=== PATIENT | male | born 1955 | race Caucasian/White ===

== ENCOUNTER 2017-06-09 14:36 | Emergency (ER) | payer BC ==
[~2017-06-09] VITALS: Ht 175.3 cm; Wt 106.6 kg
[~2017-06-09 14:36] MED LIST: ASPI-808 PO; ASPI-999 PO; CARV25TA PO; CLON0.1T PO; CLOP75TA28 PO; LISI1TAB10 PO; POTA10TA10 PO
[2017-06-09] MEDS ORDERED: ONDANSETRON 4 MG/2 ML (SDV) Z0FRAN ONE (15:07)
[2017-06-09] MEDS ORDERED: SITA100T12 PO (15:09)
[2017-06-09] MEDS ORDERED: METF500T4 PO (15:09)
[2017-06-09] MEDS ORDERED: VERA120T84 PO (15:09)
[2017-06-09 15:32] LABS: BASOPHILS % (AUTO) 0 % (0-10); EOSINOPHILS % (AUTO) 0 % (0-10); LYMPHOCYTES # (AUTO) 1.3 X 10^3 (1.0-4.0); LYMPHOCYTES % (AUTO) 13 % (12-44); MEAN CORPUSCULAR HEMOGLOBIN 30 PG (25-34); MEAN CORPUSCULAR HGB CONC 34 G/DL (32-36); MEAN CORPUSCULAR VOLUME 88 FL (80-99); MEAN PLATELET VOLUME 10.4 FL (7.4-10.4); MONOCYTES # (AUTO) 0.5 X 10^3 (0.0-1.0); MONOCYTES % (AUTO) 5 % (0-12); NEUTROPHILS % (AUTO) 81 % (42-75); PLATELET COUNT 192 10^3/uL (130-400); RED BLOOD COUNT 5.62 10^6/uL (4.35-5.85); RED CELL DISTRIBUTION WIDTH 13.5 % (10.0-14.5); WHITE BLOOD COUNT 9.9 10^3/uL (4.3-11.0)
--- NOTE | 2017-06-09 15:36 | ED GI ---
General Chief Complaint: Abdominal/GI Problems Stated Complaint: VOMITING Nursing Triage Note: PT CO OF N/V FOR 2 DAYS NUMEROUS TIMES. UNABLE TO KEEP MEDS DOWN B/P AND DIABETES Sepsis Screen: No Definite Risk Source of Information: Patient Exam Limitations: No Limitations History of Present Illness Time Seen By Provider: 15:32 Initial Comments The patient is a 61-year-old white male who presents with a 2 day history of repeated nausea and vomiting. He estimates he has vomited 20 times. He denies abdominal pain. He has had no diarrhea. There has been no fever chills or diaphoresis. He would guess his blood sugar will be up as he has not been able to take his medication. He is also hypertensive. Timing/Duration: 1-2 Days Severity/Quality: Moderate Radiation: No Radiation Activities at Onset: None Allergies and Home Medications Allergies Coded Allergies: No Known Drug Allergies (Unverified , 05/28/15) Home Medications Aspirin 81 Mg Tab.chew, 81 MG PO DAILY, #30 Ref 5 Prescribed by: ALIZA REESE on 05/29/15 1106 Carvedilol 25 Mg Tablet, 25 MG PO BID, (Reported) Clonidine HCl 0.1 Mg Tablet, 0.1 MG PO BID, (Reported) Lisinopril/Hydrochlorothiazide 1 Each Tablet, 1 EACH PO BID, (Reported) Metformin HCl 500 Mg Tablet, 500 MG PO BID, (Reported) Potassium Chloride 10 Meq Tablet.er, 10 MEQ PO DAILY, #30 Ref 5 Prescribed by: ALIZA REESE on 05/29/15 1106 Sitagliptin Phosphate 100 Mg Tablet, 100 MG PO, (Reported) Verapamil HCl 120 Mg Tablet.er, 120 MG PO DAILY, (Reported) Review of Systems Constitutional: see HPI EENTM: No Symptoms Reported, Other (speech impediment) Respiratory: No Symptoms Reported Cardiovascular: No Symptoms Reported Gastrointestinal: Nausea, Vomiting Genitourinary: No Symptoms Reported Musculoskeletal: no symptoms reported Skin: no symptoms reported Psychiatric/Neurological: No Symptoms Reported Endocrine: No Symptoms Reported Past Jugvxjh-Vyfads-Qebdei Hx Patient Social History Recent Foreign Travel: No Contact w/Someone Who Travel: No Recent Infectious Disease Expo: No Respiratory Respiratory Disorders: COPD Cardiovascular Cardiac Disorders: Hypertension Reproductive System Hx Reproductive Disorders: No Gastrointestinal Gastrointestinal Disorders: Gastroesophageal Reflux, Hepatitis Endocrine Endocrine Disorders: Diabetes, Non-Insulin dep Blood Transfusions Adverse Reaction to a Blood Tr: No Family Medical History Family Medial History: Cardiovascular disease 19 FATHER Cerebral embolism G8 BROTHER Lung cancer 19 FATHER Myocardial infarction G8 BROTHER, Onset:50's - 60 G8 BROTHER, Onset:50's - 60 Physical Exam Vital Signs VS - Last 72 Hours, by Label 06/09/17 14:55 Temp 99.7 Pulse 84 Resp 18 B/P (MAP) 172/102 Pulse Ox 95 Capillary Refill : Less Than 3 Seconds General Appearance: mild distress HEENT: normal ENT inspection Neck: full range of motion Respiratory: chest non-tender, lungs clear, normal breath sounds, no respiratory distress, no accessory muscle use Cardiovascular: normal peripheral pulses, regular rate, rhythm, no edema, no gallop, no JVD, no murmur Gastrointestinal: non tender, soft, abnormal bowel sounds (decreased) Extremities: normal range of motion, non-tender, normal inspection, no pedal edema, no calf tenderness, normal capillary refill, pelvis stable Back: no CVA tenderness Neurologic/Psychiatric: front desk clerk II-XII nml as tested, no motor/sensory deficits, alert, normal mood/affect, oriented x 3 Skin: normal color Lymphatic: no adenopathy Progress/Results/Core Measures Results/Orders Lab Results Laboratory Tests Test 06/09/17 15:05 Range/Units White Blood Count 9.9 4.3-11.0 10^3/uL Red Blood Count 5.62 4.35-5.85 10^6/uL Hemoglobin 16.8 13.3-17.7 G/DL Hematocrit 49 40-54 % Mean Corpuscular Volume 88 80-99 FL Mean Corpuscular Hemoglobin 30 25-34 PG Mean Corpuscular Hemoglobin Concent 34 32-36 G/DL Red Cell Distribution Width 13.5 10.0-14.5 % Platelet Count 192 130-400 10^3/uL Mean Platelet Volume 10.4 7.4-10.4 FL Neutrophils (%) (Auto) 81 H 42-75 % Lymphocytes (%) (Auto) 13 12-44 % Monocytes (%) (Auto) 5 0-12 % Eosinophils (%) (Auto) 0 0-10 % Basophils (%) (Auto) 0 0-10 % Neutrophils # (Auto) 8.0 H 1.8-7.8 X 10^3 Lymphocytes # (Auto) 1.3 1.0-4.0 X 10^3 Monocytes # (Auto) 0.5 0.0-1.0 X 10^3 Eosinophils # (Auto) 0.0 0.0-0.3 10^3/uL Basophils # (Auto) 0.0 0.0-0.1 10^3/uL Sodium Level 139 135-145 MMOL/L Potassium Level 3.5 L 3.6-5.0 MMOL/L Chloride Level 100 98-107 MMOL/L Carbon Dioxide Level 26 21-32 MMOL/L Anion Gap 13 5-14 MMOL/L Blood Urea Nitrogen 14 7-18 MG/DL Creatinine 0.95 0.60-1.30 MG/DL Estimat Glomerular Filtration Rate > 60 BUN/Creatinine Ratio 15 Glucose Level 141 H 70-105 MG/DL Calcium Level 11.3 H 8.5-10.1 MG/DL Total Bilirubin 0.6 0.1-1.0 MG/DL Aspartate Amino Transf (AST/SGOT) 51 H 5-34 U/L Alanine Aminotransferase (ALT/SGPT) 99 H 0-55 U/L Alkaline Phosphatase 66 40-136 U/L Total Protein 7.9 6.4-8.2 GM/DL Albumin 4.5 3.2-4.5 GM/DL My Orders Orders - LORENA MITTAL MD Ondansetron Injection (Zofran Injectio (06/09/17 15:07) Cbc With Automated Diff (06/09/17 15:22) Comprehensive Metabolic Panel (06/09/17 15:22) Ua Culture If Indicated (06/09/17 15:22) Ns Iv 1000 Ml (Sodium Chloride 0.9%) (06/09/17 15:45) Promethazine Injection (Phenergan Injec (06/09/17 16:45) Promethazine Injection (Phenergan Injec (06/09/17 16:26) Medications Given in ED Current Medications Medications Dose Ordered Sig/Kobi Route Start Time Stop Time Status Last Admin Dose Admin Ondansetron HCl 4 mg STK-MED ONCE .ROUTE 06/09/17 15:07 06/09/17 15:14 DC 06/09/17 15:22 4 MG Promethazine HCl 25 mg ONCE ONCE IVP 06/09/17 16:45 06/09/17 16:46 DC 06/09/17 16:35 25 MG Vital Signs/I&O Vital Sign - Last 12Hours 06/09/17 14:55 Temp 99.7 Pulse 84 Resp 18 B/P (MAP) 172/102 Pulse Ox 95 Blood Pressure Mean: 125 Departure Impression Impression: Primary Impression: nausea and vomiting Disposition: 01 HOME, SELF-CARE Condition: Improved Departure-Patient Inst. Referrals: [facility] (PCP/Family) Primary Care Physician Patient Instructions: No Instuctions Given Add. Discharge Instructions: All discharge instructions reviewed with patient and/or family. Voiced understanding. Clear liquid diet for 24 hours. This allows for Gatorade or other sports drink and 7-Up or Sprite. When using 7-Up or Sprite leave the bottle open and the carbon dioxide will escape. Use Zofran as needed be to control vomiting. Hold lisinopril with HCTZ until vomiting controlled Scripts Ondansetron (Zofran Odt) 8 Mg Tab.rapdis 8 MG PO every 4 hours, #20 TAB Prov: LORENA MITTAL MD 06/09/17 LORENA MITTAL MD Jun 09, 2017 15:36
[2017-06-09] MEDS ORDERED: NS IV 1000 ML 1,000 ML IV SCH (15:45)
[2017-06-09 15:50] LABS: ALANINE AMINOTRANSFERASE 99 U/L (0-55); ALBUMIN 4.5 GM/DL (3.2-4.5); ANION GAP 13 MMOL/L (5-14); ASPARTATE AMINO TRANSFERASE 51 U/L (5-34); BILIRUBIN,TOTAL 0.6 MG/DL (0.1-1.0); BLOOD UREA NITROGEN 14 MG/DL (7-18); BUN/CREATININE RATIO 15; CALCIUM 11.3 MG/DL (8.5-10.1); CARBON DIOXIDE 26 MMOL/L (21-32); CHLORIDE 100 MMOL/L (98-107); CREATININE SERUM 0.95 MG/DL (0.60-1.30); GFR ESTIMATED > 60; GLUCOSE 141 MG/DL (70-105); POTASSIUM 3.5 MMOL/L (3.6-5.0); SODIUM 139 MMOL/L (135-145); TOTAL PROTEIN 7.9 GM/DL (6.4-8.2)
[2017-06-09] MEDS ORDERED: PROMETHAZINE INJ 25 MG/ML (PHENERGAN) AMP ONE (16:26)
[2017-06-09] MEDS ORDERED: PROMETHAZINE INJ 25 MG/ML (PHENERGAN) AMP IVP ONE (16:45)
[2017-06-09] MEDS ORDERED: ONDA8TAB9 PO (17:16)
[2017-06-09 17:30] VITALS: BP 164/88
--- OUTSIDE RECORDS SUMMARY | 2017-06-10 11:43 | XMS REPORT ---
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
--- OUTSIDE RECORDS SUMMARY | 2017-06-10 11:43 | XMS REPORT ---
Author Author BILL COYLE [facility] Address [address] [place] [address] Care Team Providers Care Director Child Name Role Phone BILL COYLE Unavailable PROBLEMS Type Condition ICD9-CM Code [id number] Code Onset Dates Condition Status SNOMED Code Problem Other secondary hypertension I15.8 Active 70424330 Problem Atherosclerotic heart disease of [place] coronary artery without angina pectoris I25.10 Active 678439346 Problem Coronary atherosclerosis due to lipid rich plaque I25.83 Active 704400170341277 Problem Elevated liver enzymes R74.8 Active 495355602 ALLERGIES No Known Allergies SOCIAL HISTORY No smoking Hx information available PLAN OF CARE VITAL SIGNS MEDICATIONS No Known Medications RESULTS No Results PROCEDURES No Known procedures IMMUNIZATIONS No Known Immunizations
--- OUTSIDE RECORDS SUMMARY | 2017-06-10 11:43 | XMS REPORT ---
Author Author BILL COYLE Organization [facility] [place] Address [address] [place] [address] Care Team Providers Care Director Of Retail Merchandising Name Role Phone ESEQUIEL COYLENETTE Unavailable PROBLEMS Type Condition ICD9-CM Code [id number] Code Onset Dates Condition Status SNOMED Code Problem Other secondary hypertension I15.8 Active 12487884 Problem Atherosclerotic heart disease of [place] coronary artery without angina pectoris I25.10 Active 571526636 Problem Coronary atherosclerosis due to lipid rich plaque I25.83 Active 346735842064249 Problem Elevated liver enzymes R74.8 Active 491878918 ALLERGIES No Known Allergies SOCIAL HISTORY No smoking Hx information available PLAN OF CARE VITAL SIGNS MEDICATIONS No Known Medications RESULTS Name Result Date Reference Range CBC 2016-09-28 WBC 9.5 3.4-10.8 RBC 5.56 4.14-5.80 Hemoglobin 17.1 12.6-17.7 Hematocrit 50.1 37.5-51.0 MCV 90 79-97 MCH 30.8 26.6-33.0 MCHC 34.1 31.5-35.7 RDW 13.9 12.3-15.4 Platelets 187 150-379 Neutrophils 60 Lymphs 25 Monocytes 8 Eos 5 Basos 1 Neutrophils (Absolute) 5.7 1.4-7.0 Lymphs (Absolute) 2.4 0.7-3.1 Monocytes(Absolute) 0.8 0.1-0.9 Eos (Absolute) 0.5 0.0-0.4 Baso (Absolute) 0.1 0.0-0.2 Immature Granulocytes 1 Immature Grans (Abs) 0.1 0.0-0.1 LIPID PANEL 2016-09-28 Cholesterol, Total 106 100-199 Triglycerides 85 0-149 HDL Cholesterol 41 >39 VLDL Cholesterol Gennaro 17 5-40 LDL Cholesterol Calc 48 0-99 CMP 2016-09-28 Glucose, Serum 117 65-99 BUN 14 6-24 Creatinine, Serum 0.94 0.76-1.27 eGFR If NonAfricn Am 88 >59 eGFR If Africn Am 102 >59 BUN/Creatinine Ratio 15 9-20 Sodium, Serum 139 134-144 Potassium, Serum 4.0 3.5-5.2 Chloride, Serum 96 96-106 Carbon Dioxide, Total 26 18-29 Calcium, Serum 11.5 8.7-10.2 Protein, Total, Serum 7.7 6.0-8.5 Albumin, Serum 4.4 3.5-5.5 Globulin, Total 3.3 1.5-4.5 A/G Ratio 1.3 1.1-2.5 Bilirubin, Total 0.5 0.0-1.2 Alkaline Phosphatase, S 92 39-117 AST (SGOT) 92 0-40 ALT (SGPT) 121 0-44 HEPATITIS PROFILE 2016-09-28 Hep A Ab, IgM Positive Negative HBsAg Screen Negative Negative Hep B Core Ab, IgM Negative Negative Hep C Virus Ab <0.1 0.0-0.9 PROCEDURES Procedure Date Ordered Related Diagnosis Body Site COMPLETE CBC W/AUTO DIFF WBC Sep 28, 2016 LIPID PANEL Sep 28, 2016 ACUTE HEPATITIS PANEL Sep 28, 2016 COMPREHEN METABOLIC PANEL Sep 28, 2016 VENIPUNCT, ROUTINE* Sep 28, 2016 IMMUNIZATIONS No Known Immunizations
--- OUTSIDE RECORDS SUMMARY | 2017-06-10 11:43 | XMS REPORT ---
Author Author BILL COYLE Organization [facility] Address [address] [place] [address] Care Team Providers Care Marketing Information Manager Name Role Phone ALLISON COYLEE Unavailable PROBLEMS Type Condition ICD9-CM Code [id number] Code Onset Dates Condition Status SNOMED Code Problem Other secondary hypertension I15.8 Active 90186418 Problem Atherosclerotic heart disease of [place] coronary artery without angina pectoris I25.10 Active 721216257 Assessment Wellness examination Z00.00 Sep, Active 543024160202281 Problem Coronary atherosclerosis due to lipid rich plaque I25.83 Active 159661076991997 Assessment Other secondary hypertension I15.8 Sep, Active 17883734 ALLERGIES Substance Reaction Event Type Date Status Codeine Sulfate nausea Drug Allergy Sep, Active SOCIAL HISTORY No smoking Hx information available PLAN OF CARE VITAL SIGNS Height 5'8" in 2016-09-14 Weight 255 lbs 2016-09-14 Heart Rate 70 bpm 2016-09-14 Respiratory Rate 18 2016-09-14 BMI 38.77 kg/m2 2016-09-14 Blood pressure systolic 220 mmHg 2016-09-14 Blood pressure diastolic 130 mmHg 2016-09-14 MEDICATIONS Medication Instructions Dosage Frequency Start Date End Date Duration Status Low-Dose Aspirin 81 MG Orally Once a day 1 tablet 24h Active Lisinopril-Hydrochlorothiazide 20-25 MG Orally 2 times a day 1 tablet 12h 90 days Active Verapamil HCl 120 MG Orally 2 times a day 1 tablet 12h Sep, 30 day(s) Active Atorvastatin Calcium 20 mg Orally Once a day 1 tablet 24h Sep, 90 days Active Carvedilol 25 MG Orally Twice a day 1 tablet with food 12h 90 days Active Clonidine HCl 0.1 MG Orally 2 times a day 1 tablet 12h 90 days Active Klor-Con 10 10 MEQ Orally 1 1 tablet Active RESULTS Name Result Date Reference Range UA LONG DIP (IN HOUSE) 2016-09-17 Lot # [id number] Exp date Clarity Clear Color Yellow Odor None GLU Negative ROGELIO Negative KET Negative SG 1.025 BLO Trace-Intact pH 7.0 Protein 2+ URO 0.2 NIT Negative CHARY Negative Lot # [id number] Exp date PROCEDURES Procedure Date Ordered Related Diagnosis Body Site Office Visit, Est Pt., Level 4 Sep 14, 2016 URINALYSIS, AUTO, W/O SCOPE Sep 14, 2016 IMMUNIZATIONS No Known Immunizations
--- OUTSIDE RECORDS SUMMARY | 2017-06-10 11:43 | XMS REPORT ---
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 Problem Hyperparathyroidism 252.00 Active Problem Coronary artery disease 414.00 Active Problem Hypertension 401.9 Active Problem Fatty liver 571.8 Active Medications Medication Code System Code Instructions Start Date End Date Status Dosage Klor-Con 10 [facility] [address]-13 10 MEQ Orally 1 1 tablet Lisinopril-Hydrochlorothiazide [facility] [address]-84 20-25 MG Orally 2 times a day 1 tablet Low-Dose Aspirin [facility] [address]-88 81 MG Orally Once a day 1 tablet Clonidine HCl [facility] [address]-75 0.1 MG Orally 2 1 tablet Carvedilol [facility] [address]-44 12.5 MG Orally Twice a day 1 tablet with food Results No Known Results Summary Purpose eClinicalWorks Submission
--- OUTSIDE RECORDS SUMMARY | 2017-06-10 11:43 | XMS REPORT | Continuity of Care Document ---
Author Author [facility] Organization [facility] Address Unknown Phone Unavailable Allergies Active Description Code Type Severity Reaction Onset Reported/Identified Relationship to Patient Clinical Status Yes No Known Drug Allergies [id number] Drug Allergy Unknown N/ A 05/28/2015 Medications Problems Date Dx Coded Attending Type Code Diagnosis Diagnosed By 05/29/2015 ALIZA REESE MD, FACC FACP CCDS Ot 275.42 HYPERCALCEMIA 05/29/2015 MARY ANN CRAWFORD FACC, ALIZA FACP CCDS Ot 276.8 HYPOPOTASSEMIA 05/29/2015 ALIZA REESE MD, FACC FACP CCDS Ot 278.00 OBESITY, NOS 05/29/2015 ALIZA REESE MD, FACC FACP CCDS Ot 401.9 HYPERTENSION NOS 05/29/2015 MARY ANN CRAWFORD FACC, ALIZA FACP CCDS Ot 414.01 CORONARY ATHEROSCLEROSIS OF [place] CORON 05/29/2015 MARY ANN CRAWFORD FACC, ALIZA FACP CCDS Ot 414.4 CORONARY ATHEROSCLEROSIS DUE TO [place] 05/29/2015 MARY ANN CRAWFORD FACC, ALIZA FACP CCDS Ot 447.9 ARTERIAL DISEASE NOS 05/29/2015 MARY ANN CRAWFORD FACC, ALIZA FACP CCDS Ot 550.90 UNILAT INGUINAL HERNIA 05/29/2015 ALIZA REESE MD, FACC FACP CCDS Ot 784.59 OTHER SPEECH DISTURBANCE 05/29/2015 ALIZA REESE MD, FACC FACP CCDS Ot 786.50 CHEST PAIN NOS 05/29/2015 MARY ANN CRAWFORD FACC, ALI FACP CCDS Ot 790.29 OTHER ABNORMAL GLUCOSE 05/29/2015 ALIZA REESE MD, FACC FACP CCDS Ot V15.82 HISTORY OF TOBACCO USE 05/29/2015 MARY ANN CRAWFORD FACC ALI FACP CCDS Ot V58.69 OT MED,LT,CURRENT USE 05/29/2015 MARY ANN CRAWFORD FACC ALI FACP CCDS Ot V85.31 BODY MASS INDEX 31.0-31.9, ADULT 07/07/2015 JACQUELINE BAR MD Ot 571.8 07/07/2015 JACQUELINE BAR MD Ot 790.4 11/23/2015 JACQUELINE BAR MD Ot 571.8 11/23/2015 JACQUELINE BAR MD Ot 790.4 01/31/2017 JACQUELINE BAR MD Ot 571.8 CHRONIC LIVER DIS NEC 01/31/2017 JACQUELINE BAR MD Ot 790.4 ELEV TRANSAMINASE/LDH Procedures Results Encounters ACCT No. Visit Date/Time Discharge Status Pt. Type Provider Facility Loc./Unit Complaint [id number] 06/17/2015 07:53:00 2014 23:59:59 CLS Outpatient JACQUELINE BAR MD [facility] RAD ELEVATED LIVER ENZYMES [id number] 05/28/2015 11:30:00 2014 10:49:00 DIS Outpatient MARY ANN CRAWFORD FACC, ALIZA AU CCDS [facility] CATH CHEST PAIN
--- OUTSIDE RECORDS SUMMARY | 2017-06-10 11:43 | XMS REPORT ---
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
--- OUTSIDE RECORDS SUMMARY | 2017-06-10 11:43 | XMS REPORT ---
Author Author BILL COYLE [facility] Address [address] [place] [address] Care Team Providers Care Cash Van Salesperson Name Role Phone BILL COYLE Unavailable PROBLEMS Type Condition ICD9-CM Code [id number] Code Onset Dates Condition Status SNOMED Code Problem Other secondary hypertension I15.8 Active 93482003 Problem Atherosclerotic heart disease of [place] coronary artery without angina pectoris I25.10 Active 750239271 Problem Coronary atherosclerosis due to lipid rich plaque I25.83 Active 985953262095632 ALLERGIES Unknown Allergies SOCIAL HISTORY No smoking Hx information available PLAN OF CARE VITAL SIGNS MEDICATIONS Medication Instructions Dosage Frequency Start Date End Date Duration Status Klor-Con 10 10 MEQ Orally Once a day 1 tablet 24h 30 days Active RESULTS No Results PROCEDURES No Known procedures IMMUNIZATIONS No Known Immunizations
--- OUTSIDE RECORDS SUMMARY | 2017-06-10 11:43 | XMS REPORT ---
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 Problem Hyperparathyroidism 252.00 Active Problem Coronary artery disease 414.00 Active Assessment Hypercalcemia 275.42 Active Assessment Coronary artery disease 414.00 Active Problem Hypertension 401.9 Active Assessment Elevated ALT measurement 790.4 Active Medications Medication Code System Code Instructions Start Date End Date Status Dosage Zofran ODT [facility] [address]-33 4 MG Orally every 8 hrs prn nausea/vomiting March 03, 2015 1 tablet on the tongue and allow to dissolve Clonidine HCl [facility] [address]-48 0.2 MG Orally 2 times a day 1 tablet Plavix [facility] [address]-68 75 MG Orally Once a day 1 tablet Low-Dose Aspirin [facility] [address]-17 81 MG Orally Once a day 1 tablet Klor-Con 10 [facility] [address]-96 10 MEQ Orally Four times a day 1 tablet Carvedilol [facility] [address]-18 12.5 MG Orally Twice a day 1 tablet with food Lisinopril-Hydrochlorothiazide [facility] [address]-31 20-25 MG Orally 2 times a day 1 tablet Procedures Procedure Coding System Code Date Office Visit, Est Pt., Level 3 CPT-4 35596 Jun 08, 2015 COMPREHEN METABOLIC PANEL CPT-4 29599 Jun 08, 2015 ACUTE HEPATITIS PANEL CPT-4 21831 Jun 08, 2015 VENIPUNCT, ROUTINE* CPT-4 56342 Jun 08, 2015 Vital Signs Date/Time: Jun 08, 2015 Temperature 98.4 F Weight 240.8 lbs Height 5'8" in BMI 36.61 Index Blood Pressure Diastolic 90 mmHg Blood Pressure Systolic 130 mmHg Cardiac Monitoring Heart Rate 64 bpm Results Name Result Date Reference Range Unit Abnormality Flag CMP Summary Purpose eClinicalWorks Submission
== END 2017-06-09 17:30 | disposition home or self-care (01) ==
LOC: EDUNIT# 14:36 → ER 14:37
DX: R11.2 Nausea with vomiting, unspecified (principal); E11.9 Type 2 diabetes mellitus without complications; I10 Essential (primary) hypertension; K21.9 Gastro-esophageal reflux disease without esophagitis; J44.9 Chronic obstructive pulmonary disease, unspecified; Z79.84 Long term (current) use of oral hypoglycemic drugs; Z79.82 Long term (current) use of aspirin
CPT/HCPCS: 36415; 80053; 85025; 96361; 96374; 96375

== ENCOUNTER → 2017-11-05 | Outpatient (CLI) | payer OTHER ==
[~2017-11-05] MED LIST changes: +METF500T4 PO; +ONDA8TAB9 PO; +SITA100T12 PO; +VERA120T84 PO
--- NOTE | 2017-11-05 10:11 | Diagnostic Imaging Report ---
INDICATION: Low back pain extending into the right leg. TIME OF EXAM: 10:20 AM FINDINGS: Curvature and alignment of the lumbar spine is normal. The vertebral body heights are maintained. No acute compression fracture is seen. There is some marginal osteophyte formation but no significant disc space narrowing is detected. There does appear to be L4-5 and L5-S1 degenerative facet disease. Atherosclerotic calcifications within the abdominal aorta are noted. IMPRESSION: Lumbar spondylosis. No acute bony abnormality is detected. Dictated by: Dictated on workstation # [id number]
== END ==
LOC: RAD 09:49
PROVIDERS: ATTEND Radiology Therapeutic Radiology
DX: M47.816 Spondylosis without myelopathy or radiculopathy, lumbar region (principal)
CPT/HCPCS: 72100

== ENCOUNTER 2018-03-19 17:17 | Emergency (ER) | payer SELFPAY ==
[~2018-03-19] VITALS: Ht 175.3 cm; Wt 103.0 kg
[~2018-03-19 17:17] MED LIST changes: -METF500T4 PO; +METF500T5 PO
--- OUTSIDE RECORDS SUMMARY | 2018-03-19 17:23 | XMS REPORT ---
Author Author BILL COYLE Organization [facility] Address [address] [place] [address] Care Team Providers Care Stationary Equipment Mechanic Name Role Phone BILL COYLE Unavailable PROBLEMS Type Condition ICD9-CM Code QLW14-EV Code Onset Dates Condition Status SNOMED Code Problem Other secondary hypertension I15.8 Active 68334605 Problem Atherosclerotic heart disease of [place] coronary artery without angina pectoris I25.10 Active 399491044 Problem Coronary atherosclerosis due to lipid rich plaque I25.83 Active 838786723237981 Problem Elevated liver enzymes R74.8 Active 453667036 ALLERGIES Unknown Allergies SOCIAL HISTORY No smoking Hx information available PLAN OF CARE VITAL SIGNS MEDICATIONS Medication Instructions Dosage Frequency Start Date End Date Duration Status Verapamil HCl 120 MG Orally 2 times a day 1 tablet 12h Sep, 30 day(s) Active RESULTS No Results PROCEDURES No Known procedures IMMUNIZATIONS No Known Immunizations
--- OUTSIDE RECORDS SUMMARY | 2018-03-19 17:23 | XMS REPORT ---
Author Author BILL Madrigal Organization [facility] Address [address] [place] [address] Care Team Providers Care Assistant Product Manager Name Role Phone kodyMARISSA BILL Unavailable PROBLEMS Type Condition ICD9-CM Code YVG03-CO Code Onset Dates Condition Status SNOMED Code Problem Elevated liver enzymes R74.8 Active 422767988 Problem Essential hypertension I10 Active 86171370 Problem BMI 35.0-35.9,adult Z68.35 Active 998825321 Problem Atherosclerotic heart disease of [place] coronary artery without angina pectoris I25.10 Active 995768046 Problem Coronary atherosclerosis due to lipid rich plaque I25.83 Active 291158460329620 Problem Non-insulin dependent type 2 diabetes mellitus E11.9 Active 95789405 Problem Other secondary hypertension I15.8 Active 48125284 ALLERGIES No Information ENCOUNTERS Encounter Location Date Diagnosis [place] [id number] [address] Jan, [facility] [address] [place] [id number] [place] [address] 56675- 1278 Nov, Type 2 diabetes mellitus with other kidney complication, unspecified chcf insulin use status E11.29 and Essential hypertension I10 [facility] [id number] [place] [address] 18306- 6743 Oct, [facility] [address] [place] [id number] [place] [address] 28134- 8585 Oct, Essential hypertension I10 ; Non-insulin dependent type 2 diabetes mellitus E11.9 and Screening for lipid disorders Z13.220 [facility] [address] [place] [id number] [place] [address] 46906- 4503 Aug, Type 2 diabetes mellitus with other kidney complication, unspecified chcf insulin use status E11.29 and Atherosclerotic heart disease of [place] coronary artery without angina pectoris I25.10 [place] [address] [place] [id number] [place] [address] 29171- 5716 Jul, [place] [address] [place] [id number] [place] [address] 57247- 1243 Jul, Atherosclerotic heart disease of [place] coronary artery without angina pectoris I25.10 [place] [address] 28122- 29[address] Jul, Non-insulin dependent type 2 diabetes mellitus E11.9 ; Essential hypertension I10 and BMI 35.0-35.9,adult Z68.35 [place] [address] [address]- [address] Jun, Other secondary hypertension I15.8 [place] [address] 16411- 2338 May, [place] [address] 78541- 7012 May, Type 2 diabetes mellitus with other kidney complication, unspecified emt intermediate insulin use status E11.29 ; Other secondary hypertension I15.8 and Atherosclerotic heart disease of [place] coronary artery without angina pectoris I25.10 [place] [address] [place] [id number] [place] [address] 18828- [address] Apr, Type 2 diabetes mellitus with other diabetic kidney complication, without long-term current use of insulin E11.29 [place] [address] [place] [id number] [place] [address] 26717- 3302 14 Apr, 2017 Type 2 diabetes mellitus with other diabetic kidney complication, without long-term current use of insulin E11.29 ; Other secondary hypertension I15.8 ; Atherosclerotic heart disease of [place] coronary artery without angina pectoris I25.10 and Abnormal liver enzymes R74.8 [place] [address] [place] [id number] [place] [address] 23655- 5977 Mar, Encounter for immunization Z23 [place] [address] 74922- 8426 Mar, [facility] [address] [place] [id number] [place] [address] 56869- 1427 Nov, Encounter for immunization Z23 [facility] [address] [place] [id number] [place] [address] 24800- 5853 Oct, Other secondary hypertension I15.8 [facility] [address] [place] [id number] [place] [address] 20236- 8284 Sep, Encounter for immunization Z23 [facility] [address] 08386- 7220 Sep, [facility] [address] 44754- 0729 Sep, Other secondary hypertension I15.8 and Wellness examination Z00.00 [place] [address] [place] [id number] [place] [address] 59164- 6980 Sep, [facility] [address] [place] [id number] [place] [address] 92659- 3632 Sep, Other secondary hypertension I15.8 ; Atherosclerotic heart disease of [place] coronary artery without angina pectoris I25.10 ; Coronary atherosclerosis due to lipid rich plaque I25.83 and Wellness examination Z00.00 [place] [address] [place] [id number] [place] [address] 16749- 7085 Aug, [facility] [address] [place] [id number] [place] [address] 46316- 8749 Aug, [facility] [address] [place] [id number] [place] [address] 54230- 4856 May, Elevated ALT measurement 790.4 [place] [address] [place] [id number] [place] [address] 44472- 1607 May, Elevated ALT measurement 790.4 ; Hypercalcemia 275.42 ; Coronary artery disease 414.00 ; 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 and Hyperparathyroidism 252.00 [place] [address] [place] [id number] [place] [address] 30975- 8818 Apr, Vertigo 780.4 and Sinusitis, acute 461.9 [place] [id number] [place] [address] 27462- 7278 Apr, Hypercalcemia 275.42 and Elevated ALT measurement 790.4 [place] [address] [place] [id number] [place] [address] 08726- 8064 Apr, Hypertension 401.[address] 28526- 6324 Mar, Positive occult stool blood test 792.[address] 59912- 1442 Mar, Hypertension 401.9 and Colon cancer screening V76.51 [place] [id number] [place] [address] 78349- 6037 Mar, Hypertension 401.9 ; Colon cancer screening V76.51 ; Intermittent chest pain 786.50 and TDAP DX V06.1 [place] [id number] [place] [address] 39402- 7454 February, Vomiting 787.03 IMMUNIZATIONS No Known Immunizations SOCIAL HISTORY Never Assessed REASON FOR VISIT Lab (Walk In) PLAN OF CARE VITAL SIGNS MEDICATIONS Unknown Medications RESULTS No Results PROCEDURES No Known procedures INSTRUCTIONS MEDICATIONS ADMINISTERED No Known Medications MEDICAL (GENERAL) HISTORY Type Description Date Medical History Hypertension Medical History Acute renal failure in past Medical History Inguinal hernia Medical History cleft palate Medical History dibetes mellitus Surgical History oral surgery as a child- cleft lip and palate Surgical History dental extraction in Surgical History heart cath May 2015 Hospitalization History food poisoning Hospitalization History renal failure 2014 Hospitalization History hypertension Hospitalization History [facility] -- for chest pain and HTN. may 2015
--- OUTSIDE RECORDS SUMMARY | 2018-03-19 17:23 | XMS REPORT ---
Author Author BILL COYLE Organization [facility] Address [address] [place] [address] Care Team Providers Care Top Tile Decorator Name Role Phone BILL COYLE Unavailable PROBLEMS Type Condition ICD9-CM Code XMI11-TP Code Onset Dates Condition Status SNOMED Code Problem Other secondary hypertension I15.8 Active 39486171 Problem Atherosclerotic heart disease of [place] coronary artery without angina pectoris I25.10 Active 679905225 Problem Coronary atherosclerosis due to lipid rich plaque I25.83 Active 455413123654206 Problem Elevated liver enzymes R74.8 Active 878612909 ALLERGIES Unknown Allergies SOCIAL HISTORY No smoking Hx information available PLAN OF CARE Activity Details Follow Up 2 Months Reason: VITAL SIGNS MEDICATIONS Unknown Medications RESULTS No Results PROCEDURES Procedure Date Ordered Related Diagnosis Body Site SINGLE IMMUNIZATION ADMIN Oct 05, 2016 HEP B (ADULT) Oct 05, 2016 IMMUNIZATIONS Vaccine Route Administration Date Status HEP B (PED/ADOL, 3 DOSE) IM Intramuscular Oct 05, 2016 Administered
--- OUTSIDE RECORDS SUMMARY | 2018-03-19 17:23 | XMS REPORT ---
Author Author BILL Madrigal Organization [facility] Address [address] [place] [address] Care Team Providers Care Director Nicu Name Role Phone terryBILL Loya Unavailable PROBLEMS Type Condition ICD9-CM Code MBB75-KH Code Onset Dates Condition Status SNOMED Code Problem Elevated liver enzymes R74.8 Active 782084826 Problem Atherosclerotic heart disease of [place] coronary artery without angina pectoris I25.10 Active 948656768 Problem Coronary atherosclerosis due to lipid rich plaque I25.83 Active 604522168628796 Problem Other hammer toe(s) (acquired), right foot M20.41 Active 265532510 Problem Other hammer toe(s) (acquired), left foot M20.42 Active 12270427 Problem Non-insulin dependent type 2 diabetes mellitus E11.9 Active 02161317 Problem Other secondary hypertension I15.8 Active 71413245 Problem Essential hypertension I10 Active 34799801 Problem BMI 35.0-35.9,adult Z68.35 Active 494584131 ALLERGIES No Information ENCOUNTERS Encounter Location Date Diagnosis [place] [id number] [place] [address] 06060- 0040 Apr, [facility] [id number] [place] [address] 88961- 9956 Jan, Onychomycosis B35.1 ; Other hammer toe(s) (acquired), left foot M20.42 ; Other hammer toe(s) (acquired), right foot M20.41 ; Contusion of toe with damage to nail, unspecified toe, initial encounter S90.229A and Non- insulin dependent type 2 diabetes mellitus E11.9 [place] [address] [place] [id number] [address] Nov, Type 2 diabetes mellitus with other kidney complication, unspecified senior care insulin use status E11.29 and Essential hypertension I10 [place] [address] [address] Oct, [place] [address] [address]- [address]26 Oct, Essential hypertension I10 ; Non-insulin dependent type 2 diabetes mellitus E11.9 and Screening for lipid disorders Z13.220 [place] [address] [place] [id number] [place] [address] 33581- 6948 Aug, Type 2 diabetes mellitus with other kidney complication, 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 and Atherosclerotic heart disease of [place] coronary artery without angina pectoris I25.10 [place] [address] [address] Jul, [place] [address] [place] [id number] [address]- 7314 Jul, Atherosclerotic heart disease of [place] coronary artery without angina pectoris I25.10 [place] [address] [address]- 7[address] Jul, Non-insulin dependent type 2 diabetes mellitus E11.9 ; Essential hypertension I10 and BMI 35.0-35.9,adult Z68.35 [place] [address] [address]- 68[address] Jun, Other secondary hypertension I15.8 [place] [address] [address]- [address] May, [place] [address] [address]- 4606 May, Type 2 diabetes mellitus with other kidney complication, 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 ; Other secondary hypertension I15.8 and Atherosclerotic heart disease of [place] coronary artery without angina pectoris I25.10 [place] [address] [address]- [address] Apr, Type 2 diabetes mellitus with other diabetic kidney complication, without long-term current use of insulin E11.29 [facility] [id number] [place] [address] 61392- 8563 14 Apr, 2017 Type 2 diabetes mellitus with other diabetic kidney complication, without long-term current use of insulin E11.29 ; Other secondary hypertension I15.8 ; Atherosclerotic heart disease of [place] coronary artery without angina pectoris I25.10 and Abnormal liver enzymes R74.8 [place] [address] [place] [id number] [place] [address] 01434- 6332 30 Mar, 2017 Encounter for immunization Z23 [place] [address] [place] [id number] [place] [address] 75267- 2554 Mar, [place] [address] [place] [id number] [place] [address] 70371- 8351 Nov, Encounter for immunization Z23 [place] [address] [place] [id number] [place] [address] 22210- 0768 Oct, Other secondary hypertension I15.8 [place] [address] [place] [id number] [place] [address] 37195- 5586 Sep, Encounter for immunization Z23 [place] [address] [place] [id number] [place] [address] 40105- 0382 Sep, [place] [address] [place] [id number] [place] [address] 28474- 3589 Sep, Other secondary hypertension I15.8 and Wellness examination Z00.00 [place] [address] [place] [id number] [place] [address] 69215- 7760 05 Sep, 2016 [facility] [address] [place] [id number] [place] [address] 60420- 9527 Sep, Other secondary hypertension I15.8 ; Atherosclerotic heart disease of [place] coronary artery without angina pectoris I25.10 ; Coronary atherosclerosis due to lipid rich plaque I25.83 and Wellness examination Z00.00 [place] [address] [place] [id number] [place] [address] 45174- 3455 Aug, [place] [id number] [place] [address] 58473- 6374 Aug, [place] [id number] [place] [address] 07581- 0748 May, Elevated ALT measurement 790.4 [place] [id number] [place] [address] 51252- 5725 May, Elevated ALT measurement 790.4 ; Hypercalcemia 275.42 ; Coronary artery disease 414.00 ; 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 and Hyperparathyroidism 252.00 [place] [id number] [place] [address] 84102- 4501 Apr, Vertigo 780.4 and Sinusitis, acute 461.9 [place] [id number] [place] [address] 06637- 4736 Apr, Hypercalcemia 275.42 and Elevated ALT measurement 790.4 [place] [id number] [place] [address] 84237- 0819 Apr, Hypertension 401.9 [place] [id number] [place] [address] 54764- 6836 Mar, Positive occult stool blood test 792.1 [place] [id number] [place] [address] 95384- 4282 Mar, Hypertension 401.9 and Colon cancer screening V76.51 [place] [id number] [place] [address] 83130- 1493 Mar, Hypertension 401.9 ; Colon cancer screening V76.51 ; Intermittent chest pain 786.50 and TDAP DX V06.1 [place] [id number] [place] [address] 59636- 0671 February, Vomiting 787.03 IMMUNIZATIONS No Known Immunizations SOCIAL HISTORY Never Assessed REASON FOR VISIT Medication Refill PLAN OF CARE VITAL SIGNS MEDICATIONS Medication Instructions Dosage Frequency Start Date End Date Duration Status Verapamil HCl 120 MG Orally 2 times a day 1 tablet 12h 30 Active RESULTS No Results PROCEDURES No Known [...]
--- OUTSIDE RECORDS SUMMARY | 2018-03-19 17:23 | XMS REPORT ---
Author Author BILL Madrigal Organization [facility] Address [address] [place] [address] Care Team Providers Care Pyridine Recovery Operator Name Role Phone Kaitlin BILL Unavailable PROBLEMS Type Condition ICD9-CM Code [id number] Code Onset Dates Condition Status SNOMED Code Problem Elevated liver enzymes R74.8 Active 799323966 Problem Essential hypertension I10 Active 07906126 Problem BMI 35.0-35.9,adult Z68.35 Active 162229306 Problem Atherosclerotic heart disease of [place] coronary artery without angina pectoris I25.10 Active 771481366 Problem Coronary atherosclerosis due to lipid rich plaque I25.83 Active 794972938946288 Problem Non-insulin dependent type 2 diabetes mellitus E11.9 Active 06205648 Problem Other secondary hypertension I15.8 Active 89370417 ALLERGIES Substance Reaction Event Type Date Status Codeine Sulfate nausea Drug Allergy Apr, Active ENCOUNTERS Encounter Location Date Diagnosis [place] [id number] [place] [address] [id number] [place] [address] 57160- 6442 Jan, [facility] [id number] [place] [address] 37337- 1393 Nov, Type 2 diabetes mellitus with other kidney complication, unspecified halfway insulin use status E11.29 and Essential hypertension I10 [facility] [id number] [place] [address] 43743- 1565 Oct, [facility] [address] [address]- [address] Oct, Essential hypertension I10 ; Non-insulin dependent type 2 diabetes mellitus E11.9 and Screening for lipid disorders Z13.220 [facility] [id number] [place] [address] 38801- 4356 Aug, Type 2 diabetes mellitus with other kidney complication, 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 and Atherosclerotic heart disease of [place] coronary artery without angina pectoris I25.10 [place] [address] [address] Jul, [place] [address] [id number] [place] [address] 93771- 8886 Jul, Atherosclerotic heart disease of [place] coronary artery without angina pectoris I25.10 [place] [address] [id number] [place] [address] 30944- 5412 Jul, Non-insulin dependent type 2 diabetes mellitus E11.9 ; Essential hypertension I10 and BMI 35.0-35.9,adult Z68.35 [place] [id number] [place] [address] 74053- 2407 Jun, Other secondary hypertension I15.8 [place] [id number] [place] [address] 52376- 2850 May, [place] [address] [id number] [place] [address] 37713- 8548 May, Type 2 diabetes mellitus with other kidney complication, unspecified halfway insulin use status E11.29 ; Other secondary hypertension I15.8 and Atherosclerotic heart disease of [place] coronary artery without angina pectoris I25.10 [place] [address] [address] Apr, Type 2 diabetes mellitus with other diabetic kidney complication, without long-term current use of insulin E11.29 [place] [address] [place] [address] 92907- 1404 14 Apr, 2017 Type 2 diabetes mellitus with other diabetic kidney complication, without long-term current use of insulin E11.29 ; Other secondary hypertension I15.8 ; Atherosclerotic heart disease of [place] coronary artery without angina pectoris I25.10 and Abnormal liver enzymes R74.8 [place] [address] [place] [address] 06064- 6249 Mar, Encounter for immunization Z23 [place] [address] [address] Mar, [facility] [address] [place] [address] 47287- 3319 Nov, Encounter for immunization Z23 [facility] [address] [address] 4181 Oct, Other secondary hypertension I15.8 [facility] [address] [place] [address] 32988- 2511 Sep, Encounter for immunization Z23 [facility] [address] [place] [address] 01600- 0840 Sep, [facility] [address] [place] [address] 63208- 5490 Sep, Other secondary hypertension I15.8 and Wellness examination Z00.00 [place] [address] [place] [address] 64156- 8442 Sep, [facility] [address] [place] [address] 59511- 4714 Sep, Other secondary hypertension I15.8 ; Atherosclerotic heart disease of [place] coronary artery without angina pectoris I25.10 ; Coronary atherosclerosis due to lipid rich plaque I25.83 and Wellness examination Z00.00 [place] [address] [address] 1348 Aug, [facility] [address] [address] Aug, [facility] [address] [address] 1737 May, Elevated ALT measurement 790.4 [place] [address] [address] 8[address] May, Elevated ALT measurement 790.4 ; Hypercalcemia 275.42 ; Coronary artery disease 414.00 ; 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 and Hyperparathyroidism 252.00 [place] [id number] [address] Apr, Vertigo 780.4 and Sinusitis, acute 461.9 [place] [id number] [place] [address] 542695- 9777 Apr, Hypercalcemia 275.42 and Elevated ALT measurement 790.[address] 900589- 5378 Apr, Hypertension 401.[address] [id number]- 8969 Mar, Positive occult stool blood test 792.[address] 51735- 3345 Mar, Hypertension 401.9 and Colon cancer screening V76.51 [place] [id number] [place] [address] 15656- 4753 Mar, Hypertension 401.9 ; Colon cancer screening V76.51 ; Intermittent chest pain 786.50 and TDAP DX V06.[address] [place] [address] 84194- 0245 February, Vomiting 787.03 IMMUNIZATIONS No Known Immunizations SOCIAL HISTORY Never Assessed REASON FOR VISIT Blood Pressure - Last week bp has been high then dipped low. But at work has been dropping low while working on his feet. Makes him dizzy and makes his eyes shake and become blurry. Has an unexplained weight loss that he states he did not try to lose. - Yvonne HOLLAND PLAN OF CARE Activity Details Follow Up 4 Weeks Reason:glucose monitor VITAL SIGNS Height 5'8" in 2017-04-26 Weight 237.7 lbs 2017-04-26 Temperature 99.1 degrees Fahrenheit 2017-04-26 Heart Rate 108 bpm 2017-04-26 Respiratory Rate 20 2017-04-26 BMI 36.14 kg/m2 2017-04-26 Blood pressure systolic 140 mmHg 2017-04-26 Blood pressure diastolic 110 mmHg 2017-04-26 MEDICATIONS Medication Instructions Dosage Frequency Start Date End Date Duration Status Lisinopril-Hydrochlorothiazide 20-25 MG Orally 2 times a day 1 tablet 12h 90 days Active Atorvastatin Calcium 20 mg Orally Once a day 1 tablet 24h 02 Sep, 2016 90 days Active Verapamil HCl 120 MG Orally 2 times a day 1 tablet 12h 30 Active Klor-Con 10 10 MEQ Orally Once a day 1 tablet 24h 30 days Active Carvedilol 25 MG Orally Twice a day 1 tablet with food 12h 90 days Active Low-Dose Aspirin 81 MG Orally Once a day 1 tablet 24h Active Metformin HCl 500 mg Orally Twice a day 1 tablet with meals 12h Apr, 30 day(s) Active Clonidine HCl 0.1 MG Orally 2 times a day 1 tablet 12h 90 days Active RESULTS Name Result Date Reference Range MICROALBUMIN, URINE (IN HOUSE) 2017-04-26 MICROALBUMIN Normal Lot # [id number] Exp date 03/13/2018 Clarity clear Color yellow ALB 80 mg/L CRE 100mg/dL A:C (IN HOUSE) <30 mg/g Control Control Lot # Exp date CBC 2017-04-26 WBC 9.6 3.4-10.8 RBC 5.78 4.14-5.80 Hemoglobin 17.7 12.6-17.7 Hematocrit 52.2 37.5-51.0 MCV 90 79-97 MCH 30.6 26.6-33.0 MCHC 33.9 31.5-35.7 RDW 13.2 12.3-15.4 Platelets 208 150-379 Neutrophils 51 Lymphs 34 Monocytes 8 Eos 6 Basos 1 Immature Cells Neutrophils (Absolute) 4.8 1.4-7.0 Lymphs (Absolute) 3.3 0.7-3.1 Monocytes(Absolute) 0.8 0.1-0.9 Eos (Absolute) 0.6 0.0-0.4 Baso (Absolute) 0.1 0.0-0.2 Immature Granulocytes 0 Immature Grans (Abs) 0.0 0.0-0.1 NRBC Hematology Comments: LIPID PANEL 2017-04-26 Cholesterol, Total 126 100-199 Triglycerides 197 0-149 HDL Cholesterol 43 >39 VLDL Cholesterol Gennaro 39 5-40 LDL Cholesterol Calc 44 0-99 Comment: CMP 2017-04-26 Glucose, Serum 402 65-99 BUN 17 6-24 Creatinine, Serum 1.08 0.76-1.27 eGFR If NonAfricn Am 75 >59 eGFR If Africn Am 86 >59 BUN/Creatinine Ratio 16 9-20 Sodium, Serum 134 134-144 Potassium, Serum 3.9 3.5-5.2 Chloride, Serum 86 96-106 Carbon Dioxide, Total 26 18-29 Calcium, Serum 12.4 8.7-10.2 Protein, Total, Serum 8.0 6.0-8.5 Albumin, Serum 4.9 3.5-5.5 Globulin, Total 3.1 1.5-4.5 A/G Ratio 1.6 1.2-2.2 Bilirubin, Total 0.4 0.0-1.2 Alkaline Phosphatase, S 147 39-117 AST (SGOT) 54 0-40 ALT (SGPT) 111 0-44 HEPATITIS PROFILE 2017-04-26 Hep A Ab, IgM Positive Negative HBsAg Screen Negative Negative Hep B Core Ab, IgM Negative Negative Hep C Virus Ab <0.1 0.0-0.9 Written Authorization 2017-04-26 Written Authorization A1C (IN HOUSE) 2017-04-26 A1C IN HOUSE 14.0 4.3 - 5.6 % Previous A1c Lot [id number] Exp date 01/2019 PROCEDURES Procedure Date Ordered Result Body Site COMPLETE CBC W/AUTO DIFF WBC April 26, 2017 COMPREHEN METABOLIC PANEL April 26, 2017 VENIPUNCT, ROUTINE* April 26, 2017 GLYCATED HEMOGLOBIN TEST April 26, 2017 LIPID PANEL April 26, 2017 MICROALBUMIN, SEMIQUANT April 26, 2017 INSTRUCTIONS MEDICATIONS ADMINISTERED No Known Medications MEDICAL [...]
--- OUTSIDE RECORDS SUMMARY | 2018-03-19 17:23 | XMS REPORT ---
Author Author BILL Madrigal Organization [facility] Address [address] [place] [address] Care Team Providers Care Garden Equipment Mechanic Name Role Phone kodyMARISSA BILL Unavailable PROBLEMS Type Condition ICD9-CM Code QNI76-HD Code Onset Dates Condition Status SNOMED Code Problem Elevated liver enzymes R74.8 Active 168835305 Problem Essential hypertension I10 Active 12959133 Problem BMI 35.0-35.9,adult Z68.35 Active 456068787 Problem Atherosclerotic heart disease of [place] coronary artery without angina pectoris I25.10 Active 308196383 Problem Coronary atherosclerosis due to lipid rich plaque I25.83 Active 075284684197847 Problem Non-insulin dependent type 2 diabetes mellitus E11.9 Active 87466944 Problem Other secondary hypertension I15.8 Active 65948881 ALLERGIES No Information ENCOUNTERS Encounter Location Date Diagnosis [place] [id number] [address]- [address] Jan, [facility] [id number] [place] [address] 87961- 9402 Nov, Type 2 diabetes mellitus with other kidney complication, unspecified fpc insulin use status E11.29 and Essential hypertension I10 [facility] [id number] [place] [address] 60536- 9665 Oct, [facility] [id number] [place] [address] 78776- 2260 Oct, Essential hypertension I10 ; Non-insulin dependent type 2 diabetes mellitus E11.9 and Screening for lipid disorders Z13.220 [facility] [id number] [place] [address] 48179- 9154 Aug, Type 2 diabetes mellitus with other kidney complication, unspecified fpc insulin use status E11.29 and Atherosclerotic heart disease of [place] coronary artery without angina pectoris I25.10 [place] [id number] [place] [address] 90718- 6671 Jul, [place] [address] [id number] [place] [address] 83266- 0442 Jul, Atherosclerotic heart disease of [place] coronary artery without angina pectoris I25.10 [place] [address] 47644- 7583 Jul, Non-insulin dependent type 2 diabetes mellitus E11.9 ; Essential hypertension I10 and BMI 35.0-35.9,adult Z68.35 [place] [address] 65856- 9929 Jun, Other secondary hypertension I15.8 [place] [address] 93611- 4702 May, [place] [address] 56524- 6015 May, Type 2 diabetes mellitus with other kidney complication, 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 ; Other secondary hypertension I15.8 and Atherosclerotic heart disease of [place] coronary artery without angina pectoris I25.10 [place] [id number] [place] [address] 14848- 5877 Apr, Type 2 diabetes mellitus with other diabetic kidney complication, without long-term current use of insulin E11.29 [place] [id number] [place] [address] 35130- 6754 14 Apr, 2017 Type 2 diabetes mellitus with other diabetic kidney complication, without long-term current use of insulin E11.29 ; Other secondary hypertension I15.8 ; Atherosclerotic heart disease of [place] coronary artery without angina pectoris I25.10 and Abnormal liver enzymes R74.8 [place] [id number] [place] [address] 24995- 3558 Mar, Encounter for immunization Z23 [place] [address] 69402- 8301 Mar, [facility] [id number] [place] [address] 44811- 4120 Nov, Encounter for immunization Z23 [facility] [id number] [place] [address] 24082- 9902 Oct, Other secondary hypertension I15.8 [facility] [address] [id number] [place] [address] 61390- 8972 Sep, Encounter for immunization Z23 [facility] [address] 41045- 9647 Sep, [facility] [address] 56489- 0587 Sep, Other secondary hypertension I15.8 and Wellness examination Z00.00 [place] [address] [id number] [place] [address] 73838- 7586 Sep, [facility] [id number] [place] [address] 12225- 0640 Sep, Other secondary hypertension I15.8 ; Atherosclerotic heart disease of [place] coronary artery without angina pectoris I25.10 ; Coronary atherosclerosis due to lipid rich plaque I25.83 and Wellness examination Z00.00 [place] [address] [id number] [place] [address] 53937- 9805 Aug, [facility] [id number] [place] [address] 53062- 2910 Aug, [facility] [id number] [place] [address] 36917- 5682 May, Elevated ALT measurement 790.4 [place] [id number] [place] [address] 57669- 3287 May, Elevated ALT measurement 790.4 ; Hypercalcemia 275.42 ; Coronary artery disease 414.00 ; 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 and Hyperparathyroidism 252.00 [place] [id number] [place] [address] 56261- 8350 Apr, Vertigo 780.4 and Sinusitis, acute 461.9 [place] [address] [place] [address]- 6767 Apr, Hypercalcemia 275.42 and Elevated ALT measurement 790.4 [place] [id number] [place] [address] 77174156- 2275 Apr, Hypertension 401.9 [place] [id number] [place] [address] 90485- 9870 Mar, Positive occult stool blood test 792.1 [place] [id number] [place] [address] 86073- 3816 Mar, Hypertension 401.9 and Colon cancer screening V76.51 [place] [id number] [place] [address] 02818- 8641 Mar, Hypertension 401.9 ; Colon cancer screening V76.51 ; Intermittent chest pain 786.50 and TDAP DX V06.[address] [place] [address] 63416- 1418 February, Vomiting 787.03 IMMUNIZATIONS Vaccine Route Administration Date Status HEP B (ADULT) IM Intramuscular April 12, 2017 Administered SOCIAL HISTORY Never Assessed REASON FOR VISIT Injection PLAN OF CARE VITAL SIGNS MEDICATIONS Unknown Medications RESULTS No Results PROCEDURES Procedure Date Ordered Result Body Site HEP B (ADULT) April 12, 2017 SINGLE IMMUNIZATION ADMIN April 12, 2017 INSTRUCTIONS MEDICATIONS ADMINISTERED No Known Medications [...]
--- OUTSIDE RECORDS SUMMARY | 2018-03-19 17:24 | XMS REPORT ---
Author Author BILL COYLE Organization [facility] Address [address] [place] [address] Care Team Providers Care E Business Specialist Name Role Phone BILL COYLE Unavailable PROBLEMS Type Condition ICD9-CM Code LZL69-GM Code Onset Dates Condition Status SNOMED Code Problem Other secondary hypertension I15.8 Active 20334443 Problem Atherosclerotic heart disease of [place] coronary artery without angina pectoris I25.10 Active 892732506 Problem Coronary atherosclerosis due to lipid rich plaque I25.83 Active 602425699327820 Problem Elevated liver enzymes R74.8 Active 104089405 ALLERGIES Unknown Allergies SOCIAL HISTORY No smoking Hx information available PLAN OF CARE Activity Details Follow Up 4 Months Reason: VITAL SIGNS MEDICATIONS Unknown Medications RESULTS No Results PROCEDURES Procedure Date Ordered Related Diagnosis Body Site HEP B (ADULT) Nov 15, 2016 SINGLE IMMUNIZATION ADMIN Nov 15, 2016 IMMUNIZATIONS Vaccine Route Administration Date Status HEP B (ADULT) IM Intramuscular Nov 15, 2016 Administered
--- OUTSIDE RECORDS SUMMARY | 2018-03-19 17:24 | XMS REPORT ---
Author Author NURIA AUGUSTINE Organization [facility] Address [address] [place] [address] Care Team Providers Care Maintenance Associate Name Role Phone NURAI AUGUSTINE Unavailable PROBLEMS Type Condition ICD9-CM Code GDU84-PF Code Onset Dates Condition Status SNOMED Code Problem Elevated liver enzymes R74.8 Active 331689464 Problem Atherosclerotic heart disease of [place] coronary artery without angina pectoris I25.10 Active 467274289 Problem Coronary atherosclerosis due to lipid rich plaque I25.83 Active 466323955742869 Problem Other hammer toe(s) (acquired), right foot M20.41 Active 408446712 Problem Other hammer toe(s) (acquired), left foot M20.42 Active 82491531 Problem Non-insulin dependent type 2 diabetes mellitus E11.9 Active 09169130 Problem Other secondary hypertension I15.8 Active 22999175 Problem Essential hypertension I10 Active 29042873 Problem BMI 35.0-35.9,adult Z68.35 Active [id number] ALLERGIES No Information ENCOUNTERS Encounter Location Date Diagnosis [place] [id number] [place] [address] Apr, [place] [address] [place] [id number] [place] [address] Jan, Onychomycosis B35.1 ; Other hammer toe(s) (acquired), left foot M20.42 ; Other hammer toe(s) (acquired), right foot M20.41 ; Contusion of toe with damage to nail, unspecified toe, initial encounter S90.229A and Non- insulin dependent type 2 diabetes mellitus E11.9 [place] [address] [place] [address] Nov, Type 2 diabetes mellitus with other kidney complication, unspecified manager intermediate insulin use status E11.29 and Essential hypertension I10 [place] [address], [place] [address] Oct, [place] [address] [address] Oct, Essential hypertension I10 ; Non-insulin dependent type 2 diabetes mellitus E11.9 and Screening for lipid disorders Z13.220 [place] [address] [place] [id number] [place] [address] Aug, Type 2 diabetes mellitus with other kidney complication, unspecified manager intermediate insulin use status E11.29 and Atherosclerotic heart disease of [place] coronary artery without angina pectoris I25.10 [place] [address] [place] [id number] [address] Jul, [place] [address] [place] [id number] [address] Jul, Atherosclerotic heart disease of [place] coronary artery without angina pectoris I25.10 [place] [address], [place] [address] Jul, Non-insulin dependent type 2 diabetes mellitus E11.9 ; Essential hypertension I10 and BMI 35.0-35.9,adult Z68.35 [place] [address], [place] [address] Jun, Other secondary hypertension I15.8 [place] [address], [place] [address] May, [place] [address], [place] [address] May, Type 2 diabetes mellitus with other kidney complication, unspecified manager intermediate insulin use status E11.29 ; Other secondary hypertension I15.8 and Atherosclerotic heart disease of [place] coronary artery without angina pectoris I25.10 [place] [address] [place] [id number], [place] [address] Apr, Type 2 diabetes mellitus with other diabetic kidney complication, without long-term current use of insulin E11.29 [facility] [address] [place] [id number] [place] [address] 14 Apr, 2017 Type 2 diabetes mellitus with other diabetic kidney complication, without long-term current use of insulin E11.29 ; Other secondary hypertension I15.8 ; Atherosclerotic heart disease of [place] coronary artery without angina pectoris I25.10 and Abnormal liver enzymes R74.8 [place] [address] [place] [id number] [place] [address] 30 Mar, 2017 Encounter for immunization Z23 [facility] [address] [place] [id number] [place] [address] Mar, [place] [address] [address] Nov, Encounter for immunization Z23 [facility] [address] [place] [id number] [place] [address] 40435- 3278 Oct, Other secondary hypertension I15.8 [place] [address] [place] [id number] [place] [address] 140[address] Sep, Encounter for immunization Z23 [facility] [address] [place] [id number] [place] [address] 26581- [address] Sep, [facility] [address] [place] [id number] [place] [address]- [address] Sep, Other secondary hypertension I15.8 and Wellness examination Z00.00 [place] [address] [place] [id number] [place] [address]- [address] Sep, [facility] [address] [place] [id number] [place] [address] 6[address]- 87[address] Sep, Other secondary hypertension I15.8 ; Atherosclerotic heart disease of [place] coronary artery without angina pectoris I25.10 ; Coronary atherosclerosis due to lipid rich plaque I25.83 and Wellness examination Z00.00 [facility] [address] [place] [id number] [place] [address] Aug, [facility] [address] [place] [address] Aug, [place] [address] [place] [id number] [place] [address] 50[address]- 1111 May, Elevated ALT measurement 790.4 [place] [address] [place] [id number] [place] [address]- [address] May, Elevated ALT measurement 790.4 ; Hypercalcemia 275.42 ; Coronary artery disease 414.00 ; 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 and Hyperparathyroidism 252.00 [place] [id number] [place] [address] 48476- 2[address] Apr, Vertigo 780.4 and Sinusitis, acute 461.[address] [address] Apr, Hypercalcemia 275.42 and Elevated ALT measurement 790.[address] [address]- [address] Apr, Hypertension 401.9 [place] [id number] [place] [address] 09705- 5572 Mar, Positive occult stool blood test 792.1 [place] [id number] [place] [address] 80923- 6110 Mar, Hypertension 401.9 and Colon cancer screening V76.51 [place] [id number] [place] [address] 91078- 5338 Mar, Hypertension 401.9 ; Colon cancer screening V76.51 ; Intermittent chest pain 786.50 and TDAP DX V06.1 [place] [id number] [place] [address]- [address] February, Vomiting 787.03 IMMUNIZATIONS No Known Immunizations SOCIAL HISTORY Never Assessed REASON FOR VISIT disability paperwork PLAN OF CARE VITAL SIGNS MEDICATIONS Unknown [...]
--- NOTE | 2018-03-19 17:51 | ED GI ---
General Stated Complaint: VOMITING Source of Information: Patient Exam Limitations: No Limitations History of Present Illness Date Seen by Provider: Mar 19, 2018 Time Seen by Provider: 17:49 Initial Comments to ER with nausea vomiting and dizziness for 3 days. No bowel changes. He does have a large left inguinal hernia. He denies any unusual pain or change in size to the left inguinal hernia. Timing/Duration: 2-3 Days Severity/Quality: Moderate Location: Generalized Abdomen Radiation: No Radiation Associated Symptoms: Nausea/Vomiting Allergies and Home Medications Allergies Coded Allergies: No Known Drug Allergies (Unverified , 05/28/15) Home Medications Aspirin 81 Mg Tab.chew, 81 MG PO DAILY Prescribed by: ALIZA REESE on 05/29/15 1106 Carvedilol 25 Mg Tablet, 25 MG PO BID, (Reported) Clonidine HCl 0.1 Mg Tablet, 0.1 MG PO BID, (Reported) Lisinopril/Hydrochlorothiazide 1 Each Tablet, 1 EACH PO BID, (Reported) Metformin HCl 500 Mg Tablet, 500 MG PO BID, (Reported) Ondansetron 8 Mg Tab.rapdis, 8 MG PO every 4 hours Prescribed by: LORENA MITTAL on 06/09/17 171 Ondansetron 8 Mg Tab.rapdis, 8 MG PO Q6H PRN for NAUSEA/VOMITING-1ST LINE Prescribed by: KARTHIK CANADA on 03/19/181911 Potassium Chloride 10 Meq Tablet.er, 10 MEQ PO DAILY Prescribed by: ALIZA REESE on 05/29/15 1106 Promethazine HCl 25 Mg Tablet, 25 MG PO Q8H PRN for NAUSEA/VOMITING Prescribed by: KARTHIK CANADA on 03/19/182035 Verapamil HCl 120 Mg Tablet.er, 120 MG PO DAILY, (Reported) Patient Home Medication List Home Medication List Reviewed: Yes Review of Systems Constitutional: see HPI; No chills, No fever EENTM: No Symptoms Reported Respiratory: No Symptoms Reported Cardiovascular: No Symptoms Reported Gastrointestinal: See HPI; Denies Abdominal Pain, Denies Constipated, Denies Diarrhea; Nausea, Vomiting Genitourinary: No Symptoms Reported Musculoskeletal: no symptoms reported Skin: no symptoms reported Psychiatric/Neurological: No Symptoms Reported Endocrine: No Symptoms Reported Hematologic/Lymphatic: No Symptoms Reported Past Fprzgbj-Fiwaot-Xjcsjf Hx Patient Social History Recent Foreign Travel: No Contact w/Someone Who Travel: No Recent Hopitalizations: No Past Medical History Surgeries: No (CLEFT PALATE, ORTHO) Respiratory: Yes COPD Cardiac: Yes Hypertension Neurological: No Reproductive Disorders: No Gastrointestinal: No (right inquinal hernia) Gastroesophageal Reflux, Hepatitis Musculoskeletal: No Endocrine: Yes (possible diabetes) Diabetes, Non-Insulin dep Cancer: No Psychosocial: No Integumentary: No Blood Disorders: No Adverse Reaction/Blood Tranf: No Family Medical History Cardiovascular disease 19 FATHER Cerebral embolism G8 BROTHER Lung cancer 19 FATHER Myocardial infarction G8 BROTHER, Onset:50's - 60 G8 BROTHER, Onset:50's - 60 Physical Exam Vital Signs Vital Signs - First Documented 03/19/18 17:30 Temp 98.5 Pulse 105 Resp 20 B/P (MAP) 173/119 (137) Pulse Ox 94 Capillary Refill : General Appearance: WD/WN, no apparent distress HEENT: PERRL/EOMI, normal ENT inspection Neck: non-tender, full range of motion Respiratory: normal breath sounds, no respiratory distress, no accessory muscle use Cardiovascular: regular rate, rhythm, no murmur Gastrointestinal: normal bowel sounds, non tender, tenderness (he is a little tender to the right side of the abdomen) Extremities: normal range of motion, non-tender Neurologic/Psychiatric: alert, normal mood/affect, oriented x 3 Skin: normal color, warm/dry Progress/Results/Core Measures Results/Orders Lab Results Laboratory Tests Test 03/19/18 17:45 03/19/18 19:30 Range/Units White Blood Count 9.7 4.3-11.0 10^3/uL Red Blood Count 5.78 4.35-5.85 10^6/uL Hemoglobin 18.0 H 13.3-17.7 G/DL Hematocrit 50 40-54 % Mean Corpuscular Volume 87 80-99 FL Mean Corpuscular Hemoglobin 31 25-34 PG Mean Corpuscular Hemoglobin Concent 36 32-36 G/DL Red Cell Distribution Width 13.6 10.0-14.5 % Platelet Count 205 130-400 10^3/uL Mean Platelet Volume 10.9 H 7.4-10.4 FL Neutrophils (%) (Auto) 86 H 42-75 % Lymphocytes (%) (Auto) 10 L 12-44 % Monocytes (%) (Auto) 4 0-12 % Eosinophils (%) (Auto) 0 0-10 % Basophils (%) (Auto) 0 0-10 % Neutrophils # (Auto) 8.3 H 1.8-7.8 X 10^3 Lymphocytes # (Auto) 1.0 1.0-4.0 X 10^3 Monocytes # (Auto) 0.3 0.0-1.0 X 10^3 Eosinophils # (Auto) 0.0 0.0-0.3 10^3/uL Basophils # (Auto) 0.0 0.0-0.1 10^3/uL Sodium Level 139 135-145 MMOL/L Potassium Level 3.3 L 3.6-5.0 MMOL/L Chloride Level 100 98-107 MMOL/L Carbon Dioxide Level 25 21-32 MMOL/L Anion Gap 14 5-14 MMOL/L Blood Urea Nitrogen 16 7-18 MG/DL Creatinine 1.06 0.60-1.30 MG/DL Estimat Glomerular Filtration Rate > 60 BUN/Creatinine Ratio 15 Glucose Level 132 H 70-105 MG/DL Calcium Level 11.8 H 8.5-10.1 MG/DL Total Bilirubin 0.5 0.1-1.0 MG/DL Aspartate Amino Transf (AST/SGOT) 38 H 5-34 U/L Alanine Aminotransferase (ALT/SGPT) 75 H 0-55 U/L Alkaline Phosphatase 49 40-136 U/L Total Protein 8.2 6.4-8.2 GM/DL Albumin 4.6 H 3.2-4.5 GM/DL Lipase 29 8-78 U/L Urine Color YELLOW Urine Clarity CLEAR Urine pH 5 5-9 Urine Specific [place] 1.010 L 1.016-1.022 Urine Protein 3+ H NEGATIVE Urine Glucose (UA) NEGATIVE NEGATIVE Urine Ketones 3+ H NEGATIVE Urine Nitrite NEGATIVE NEGATIVE Urine Bilirubin NEGATIVE NEGATIVE Urine Urobilinogen 1 NORMAL MG/DL Urine Leukocyte Esterase NEGATIVE NEGATIVE Urine RBC (Auto) 1+ H NEGATIVE Urine RBC 0-2 /HPF Urine WBC RARE /HPF Urine Squamous Epithelial Cells RARE /HPF Urine Crystals NONE /LPF Urine Bacteria NONE /HPF Urine Casts NONE /LPF Urine Mucus NEGATIVE /LPF Urine Culture Indicated NO My Orders Orders - KARTHIK CANADA HYDROGEN TREATER Cbc With Automated Diff (03/19/18 17:48) Comprehensive Metabolic Panel (03/19/18 17:48) Lipase (03/19/18 17:48) Ua Culture If Indicated (03/19/18 17:48) Iv Heplock-Insert (Order) (03/19/18 17:48) Ct Abdomen/Pelvis W (03/19/18 17:48) Ondansetron Injection (Zofran Injectio (03/19/18 18:00) Ns Iv 1000 Ml (Sodium Chloride 0.9%) (03/19/18 18:00) Iohexol Injection (Omnipaque 350 Mg/Ml 1 (03/19/18 18:15) Ns (Ivpb) (Sodium Chloride 0.9%) (03/19/18 18:15) Ns Iv 500 Ml (Sodium Chloride 0.9%) (03/19/18 19:15) Promethazine Injection (Phenergan Injec (03/19/18 19:30) Promethazine Injection (Phenergan Injec (03/19/18 20:00) Antacid Suspension (Mylanta Suspension (03/19/18 20:00) Lidocaine 2% Viscous 15 Ml (Xylocaine Vi (03/19/18 20:00) Medications Given in ED Current Medications Medications Dose Ordered Sig/Kobi Route Start Time Stop Time Status Last Admin Dose Admin Iohexol 100 ml ONCE ONCE IV 03/19/18 18:15 03/19/18 18:17 DC 03/19/18 18:34 100 ML Ondansetron HCl 8 mg ONCE ONCE IVP 03/19/18 18:00 03/19/18 18:01 DC 03/19/18 18:03 8 MG Promethazine HCl 12.5 mg ONCE ONCE IVP 03/19/18 19:30 03/19/18 19:31 DC 03/19/18 19:33 12.5 MG Sodium Chloride 250 ml ONCE ONCE IV 03/19/18 18:15 03/19/18 18:17 DC 03/19/18 18:34 80 ML Vital Signs/I&O 03/19/18 17:30 Temp 98.5 Pulse 105 Resp 20 B/P (MAP) 173/119 (137) Pulse Ox 94 Departure Communication (Admissions) Family Conversation 2034- patient is feeling better at this time. After labs were discussed reported an increase in his nausea with the onset of pickups. He was given 2 doses of Phenergan 12.5 mg eachtime. NAME: RYAN RAYMOND MED REC#: [id number] PT STATUS: REG ER : 1955 PHYSICIAN: KARTHIK CANADA APRN ADMIT DATE: 03/19/18/ER Draft Date of Exam:03/19/18 CT ABDOMEN/PELVIS W PROCEDURE: CT abdomen and pelvis with contrast. TECHNIQUE: Multiple contiguous axial images were obtained through the abdomen and pelvis after administration of intravenous contrast. INDICATION: Abdominal pain, nausea and vomiting. COMPARISON: None. FINDINGS: The lung bases are clear. There is a small hiatal hernia. Minimal fatty infiltration of the liver is present. The gallbladder, spleen, pancreas, adrenal glands, and kidneys are grossly unremarkable. There is no free air or free fluid. There is some mild constipation without obstruction or ileus. There is a large left inguinal hernia containing fat and mesentery as well as a moderate-sized segment of sigmoid colon. However, there is no overt obstruction. There is some mass effect on the urinary bladder. Otherwise, distal ureters and urinary bladder are grossly unremarkable. There is no inflammatory process. There is kybg-yq-cwxsnded prostate enlargement. Additional fat-containing hernia is seen in the right inguinal region. Osseous structures are grossly normal. IMPRESSION: 1. A large left inguinal hernia containing fat, mesentery, and a long segment of nonobstructed sigmoid colon. 2. Small hiatal hernia. 3. The remainder of the abdomen and pelvis is within normal limits. No bowel obstruction or inflammatory process identified. Dictated on workstation # [id number] Dict: 03/19/18 1856 Trans: 03/19/18 [id number] Interpreted by: VALENTE MAR Electronically signed by: Impression Primary Impression: Nausea and vomiting Additional Impression: Prostate enlargement Disposition: 01 HOME, SELF-CARE Condition: Stable Departure-Patient Inst. Decision time for Depature: 19:08 Referrals: NURIA AUGUSTINE MD (PCP/Family) Primary Care Physician BOUBACAR RIVERA MD Patient Instructions: Nausea and Vomiting, Adult Add. Discharge Instructions: 1. Return to ER for any concerns 2. Follow up with Dr Rivera in regards to the enlarged prostate seen on CT. 3. Nausea medication as directed. Scripts Promethazine HCl (Promethazine Tablet) 25 Mg Tablet 25 MG PO Q8H PRN for NAUSEA/VOMITING, #10 TAB . Prov: KARTHIK CANADA HYDROGEN TREATER 03/19/18 Ondansetron (Zofran Odt) 8 Mg Tab.rapdis 8 MG PO Q6H PRN for NAUSEA/VOMITING-1ST LINE, #10 TAB . Prov: KARTHIK CANADA APRN 03/19/18 KARTHIK CANADA APRN Mar 19, 2018 17:51
[2018-03-19] MEDS ORDERED: NS IV 1000 ML 1,000 ML IV SCH (18:00)
[2018-03-19] MEDS ORDERED: ONDANSETRON 4 MG/2 ML (SDV) Z0FRAN IVP ONE (18:00)
[2018-03-19 18:01] LABS: BASOPHILS % (AUTO) 0 % (0-10); EOSINOPHILS % (AUTO) 0 % (0-10); HEMATOCRIT 50 % (40-54); LYMPHOCYTES % (AUTO) 10 % (12-44); MEAN CORPUSCULAR HEMOGLOBIN 31 PG (25-34); MEAN CORPUSCULAR HGB CONC 36 G/DL (32-36); MEAN CORPUSCULAR VOLUME 87 FL (80-99); MEAN PLATELET VOLUME 10.9 FL (7.4-10.4); MONOCYTES # (AUTO) 0.3 X 10^3 (0.0-1.0); MONOCYTES % (AUTO) 4 % (0-12); NEUTROPHILS # (AUTO) 8.3 X 10^3 (1.8-7.8); NEUTROPHILS % (AUTO) 86 % (42-75); PLATELET COUNT 205 10^3/uL (130-400); RED BLOOD COUNT 5.78 10^6/uL (4.35-5.85); RED CELL DISTRIBUTION WIDTH 13.6 % (10.0-14.5); WHITE BLOOD COUNT 9.7 10^3/uL (4.3-11.0)
[2018-03-19 18:13] LABS: ALANINE AMINOTRANSFERASE 75 U/L (0-55); ALBUMIN 4.6 GM/DL (3.2-4.5); ALKALINE PHOSPHATASE 49 U/L (40-136); BILIRUBIN,TOTAL 0.5 MG/DL (0.1-1.0); BUN/CREATININE RATIO 15; CALCIUM 11.8 MG/DL (8.5-10.1); CARBON DIOXIDE 25 MMOL/L (21-32); CHLORIDE 100 MMOL/L (98-107); CREATININE SERUM 1.06 MG/DL (0.60-1.30); GFR ESTIMATED > 60; GLUCOSE 132 MG/DL (70-105); LIPASE 29 U/L (8-78); POTASSIUM 3.3 MMOL/L (3.6-5.0); SODIUM 139 MMOL/L (135-145); TOTAL PROTEIN 8.2 GM/DL (6.4-8.2)
[2018-03-19] MEDS ORDERED: IOHEXOL 350 MG/ML 100 ML (OMNIPAQUE 350) VIAL IV ONE (18:15)
[2018-03-19] MEDS ORDERED: NS 250 ML (IVPB) BAG IV ONE (18:15)
--- NOTE | 2018-03-19 19:02 | Diagnostic Imaging Report ---
PROCEDURE: CT abdomen and pelvis with contrast. TECHNIQUE: Multiple contiguous axial images were obtained through the abdomen and pelvis after administration of intravenous contrast. INDICATION: Abdominal pain, nausea and vomiting. COMPARISON: None. FINDINGS: The lung bases are clear. There is a small hiatal hernia. Minimal fatty infiltration of the liver is present. The gallbladder, spleen, pancreas, adrenal glands, and kidneys are grossly unremarkable. There is no free air or free fluid. There is some mild constipation without obstruction or ileus. There is a large left inguinal hernia containing fat and mesentery as well as a moderate-sized segment of sigmoid colon. However, there is no overt obstruction. There is some mass effect on the urinary bladder. Otherwise, distal ureters and urinary bladder are grossly unremarkable. There is no inflammatory process. There is jsag-xv-rmritzfj prostate enlargement. Additional fat-containing hernia is seen in the right inguinal region. Osseous structures are grossly normal. IMPRESSION: 1. A large left inguinal hernia containing fat, mesentery, and a long segment of nonobstructed sigmoid colon. 2. Small hiatal hernia. 3. The remainder of the abdomen and pelvis is within normal limits. No bowel obstruction or inflammatory process identified. Dictated by: Dictated on workstation # [id number]
[2018-03-19] MEDS ORDERED: ONDA8TAB9 PO ×2 (19:12→21:00)
[2018-03-19] MEDS ORDERED: NS IV 500 ML 500 ML IV SCH (19:15)
[2018-03-19] MEDS ORDERED: PROMETHAZINE INJ 25 MG/ML (PHENERGAN) AMP IVP ONE ×2 (19:30→20:00)
[2018-03-19 19:39] LABS: BILIRUBIN,URINE NEGATIVE (NEGATIVE); CLARITY,URINE CLEAR; COLOR,URINE YELLOW; GLUCOSE, URINE (UA) NEGATIVE (NEGATIVE); KETONES,URINE 3+ (NEGATIVE); LEUKOCYTE ESTERASE ,URINE NEGATIVE (NEGATIVE); NITRITE,URINE NEGATIVE (NEGATIVE); PH,URINE 5 (5-9); PROTEIN,URINE 3+ (NEGATIVE); UROBILINOGEN,URINE 1 MG/DL (NORMAL)
[2018-03-19 19:45] LABS: RBC,URINE 0-2 /HPF; SQUAMOUS EPITHELIAL CELL,UR RARE /HPF; WBC,URINE RARE /HPF
[2018-03-19] MEDS ORDERED: ANTACID SUSP 30 ML UDC (MYLANTA) PO ONE (20:00)
[2018-03-19] MEDS ORDERED: LIDOCAINE 2% VISCOUS 15 ML UDC PO ONE (20:00)
[2018-03-19] MEDS ORDERED: PROM25TA14 PO ×2 (20:36→21:00)
[2018-03-19 20:55] VITALS: BP 173/119
== END 2018-03-19 20:55 | disposition home or self-care (01) ==
LOC: EDUNIT# 17:17 → ER 17:18
DX: N40.1 Benign prostatic hyperplasia with lower urinary tract symptoms (principal); R11.2 Nausea with vomiting, unspecified; J44.9 Chronic obstructive pulmonary disease, unspecified; I10 Essential (primary) hypertension; K21.9 Gastro-esophageal reflux disease without esophagitis; E11.9 Type 2 diabetes mellitus without complications; Z87.19 Personal history of other diseases of the digestive system; Z79.82 Long term (current) use of aspirin
CPT/HCPCS: 36415; 74177; 80053; 81000; 83690; 85025; 96361; 96374; 96375; 96376

== ENCOUNTER 2018-11-22 11:09 | Inpatient (IN) | payer OTHER ==
[2018-11-22] VITALS (12 sets, daily range): BP systolic 96–141; BP diastolic 61–90
[~2018-11-22] VITALS: Ht 175.3 cm; Wt 97.7 kg
[~2018-11-22 11:09] MED LIST changes: +METF-397 PO; -METF500T5 PO; +PROM25TA14 PO
--- NOTE | 2018-11-22 11:20 | ED General ---
General Stated Complaint: FALL Source of Information: Patient Exam Limitations: No Limitations History of Present Illness Date Seen by Provider: Nov 22, 2018 Time Seen by Provider: 11:18 Initial Comments To ER per EMS with reports of a syncopal event. He does not recall falling but does recall awakening on the floor. He states that he's been vomiting for the past 3 days and that his vomiting has been very dark and EMS described as coffee grounds emesis. He does report some epigastric abdominal pain. He denies chest pain or shortness of breath. Primary care Dr. Augustine. He also complains of very bothersome Hiccups for the past couple of days Timing/Duration: 1-2 Days Severity: Moderate Associated Systoms: Nausea/Vomiting Allergies and Home Medications Allergies Coded Allergies: No Known Drug Allergies (Unverified , 05/28/15) Home Medications Aspirin 81 Mg Tab.chew, 81 MG PO DAILY Prescribed by: ALIZA REESE on 05/29/15 1106 Carvedilol 25 Mg Tablet, 25 MG PO BID, (Reported) Clonidine HCl 0.1 Mg Tablet, 0.1 MG PO BID, (Reported) Lisinopril/Hydrochlorothiazide 1 Each Tablet, 1 EACH PO BID, (Reported) Metformin HCl 500 Mg Tablet, 500 MG PO BID, (Reported) Ondansetron 8 Mg Tab.rapdis, 8 MG PO every 4 hours Prescribed by: LORENA MITTAL on 06/09/17 1716 Ondansetron 8 Mg Tab.rapdis, 8 MG PO Q6H PRN for NAUSEA/VOMITING-1ST LINE . Prescribed by: KARTHIK CANADA on 03/19/18 2100 Potassium Chloride 10 Meq Tablet.er, 10 MEQ PO DAILY Prescribed by: ALIZA REESE on 05/29/15 1106 Promethazine HCl 25 Mg Tablet, 25 MG PO Q8H PRN for NAUSEA/VOMITING . Prescribed by: KARTHIK CANADA on 03/19/18 2100 Verapamil HCl 120 Mg Tablet.er, 120 MG PO DAILY, (Reported) Patient Home Medication List Home Medication List Reviewed: Yes Review of Systems Review of Systems Constitutional: see HPI EENTM: see HPI Respiratory: no symptoms reported; No short of breath Cardiovascular: No chest pain Gastrointestinal: abdominal pain, nausea, other (coffee-ground emesis) Genitourinary: no symptoms reported Musculoskeletal: no symptoms reported Skin: no symptoms reported Psychiatric/Neurological: No Symptoms Reported Hematologic/Lymphatic: No Symptoms Reported Past Awestoe-Eneiqw-Aapiub Hx Patient Social History 2nd Hand Smoke Exposure: No Recent Foreign Travel: No Contact w/Someone Who Travel: No Recent Hopitalizations: No Past Medical History Surgeries: No (CLEFT PALATE, ORTHO) Respiratory: Yes COPD Cardiac: Yes Hypertension Neurological: No Reproductive Disorders: No Gastrointestinal: No (right inquinal hernia) Gastroesophageal Reflux, Hepatitis Musculoskeletal: No Endocrine: Yes (possible diabetes) Diabetes, Non-Insulin dep Cancer: No Psychosocial: No Integumentary: No Blood Disorders: No Adverse Reaction/Blood Tranf: No Family Medical History Cardiovascular disease 19 FATHER Cerebral embolism G8 BROTHER Lung cancer 19 FATHER Myocardial infarction G8 BROTHER, Onset:'s - G8 BROTHER, Onset:' - 60 Physical Exam Vital Signs Vital Signs - First Documented 11/22/18 13:16 Temp 96.6 Pulse 112 Resp 12 B/P (MAP) 119/77 Pulse Ox 96 O2 Delivery Room Air Capillary Refill : Height, Weight, BMI Height: 5'9.00" Weight: 227lbs. 0oz. 102.046336bd; BMI Method:Stated General Appearance: No Apparent Distress, WD/WN, Other (dried very dark emesis around his mouth) HEENT: PERRL/EOMI Neck: Full Range of Motion, Normal Inspection Respiratory: Normal Breath Sounds, No Accessory Muscle Use, No Respiratory Distress Gastrointestinal: Normal Bowel Sounds, Soft, Tenderness (epigastric) Extremity: Normal Capillary Refill, Normal Inspection Neurologic/Psychiatric: Alert, Oriented x3, No Motor/Sensory Deficits Skin: Normal Color, Warm/Dry Focused Exam Lactate Level 11/22/18 13:01: Lactic Acid Level 3.06*H Lactic Acid Level Laboratory Tests Test 11/22/18 13:01 Lactic Acid Level 3.06 MMOL/L (0.50-2.00) *H Progress/Results/Core Measures Suspected Sepsis SIRS Temperature: Pulse: Respiratory Rate: Laboratory Tests 11/22/18 11:26: White Blood Count 25.9H Blood Pressure / Mean: 11/22/18 13:01: Lactic Acid Level 3.06*H Laboratory Tests 11/22/18 11:26: Creatinine 1.58H, INR Comment 1.3, Platelet Count 354, Total Bilirubin 0.3 Results/Orders Lab Results Laboratory Tests Test 11/22/18 11:26 29/19 13:01 Range/Units White Blood Count 25.9 H 4.3-11.0 10^3/uL Red Blood Count 2.62 L 4.35-5.85 10^6/uL Hemoglobin 6.9 *L 13.3-17.7 G/DL Hematocrit 22 L 40-54 % Mean Corpuscular Volume 82 80-99 FL Mean Corpuscular Hemoglobin 26 25-34 PG Mean Corpuscular Hemoglobin Concent 32 32-36 G/DL Red Cell Distribution Width 15.2 H 10.0-14.5 % Platelet Count 354 130-400 10^3/uL Mean Platelet Volume 11.5 H 7.4-10.4 FL Neutrophils (%) (Auto) 76 H 42-75 % Lymphocytes (%) (Auto) 14 12-44 % Monocytes (%) (Auto) 10 0-12 % Eosinophils (%) (Auto) 0 0-10 % Basophils (%) (Auto) 0 0-10 % Neutrophils # (Auto) 19.6 H 1.8-7.8 X 10^3 Lymphocytes # (Auto) 3.7 1.0-4.0 X 10^3 Monocytes # (Auto) 2.6 H 0.0-1.0 X 10^3 Eosinophils # (Auto) 0.0 0.0-0.3 10^3/uL Basophils # (Auto) 0.0 0.0-0.1 10^3/uL Neutrophils % (Manual) 79 % Lymphocytes % (Manual) 8 % Monocytes % (Manual) 6 % Eosinophils % (Manual) 5 % Band Neutrophils 2 % Nucleated Red Blood Cells 1 Toxic Granulation 1+ Polychromasia SLIGHT Hypochromasia SLIGHT Blood Morphology Comment NORMAL Prothrombin Time 16.6 H 12.2-14.7 SEC INR Comment 1.3 0.8-1.4 Activated Partial Thromboplast Time 24 24-35 SEC Sodium Level 140 135-145 MMOL/L Potassium Level 3.2 L 3.6-5.0 MMOL/L Chloride Level 97 L 98-107 MMOL/L Carbon Dioxide Level 26 21-32 MMOL/L Anion Gap 17 H 5-14 MMOL/L Blood Urea Nitrogen 81 H 7-18 MG/DL Creatinine 1.58 H 0.60-1.30 MG/DL Estimat Glomerular Filtration Rate 45 BUN/Creatinine Ratio 51 Glucose Level 174 H 70-105 MG/DL Calcium Level 10.5 H 8.5-10.1 MG/DL Corrected Calcium 10.6 H 8.5-10.1 MG/DL Total Bilirubin 0.3 0.1-1.0 MG/DL Aspartate Amino Transf (AST/SGOT) 25 5-34 U/L Alanine Aminotransferase (ALT/SGPT) 17 0-55 U/L Alkaline Phosphatase 28 L 40-136 U/L Troponin I 0.126 <0.028 NG/ML Total Protein 6.2 L 6.4-8.2 GM/DL Albumin 3.9 3.2-4.5 GM/DL Lipase 24 8-78 U/L Lactic Acid Level 3.06 *H 0.50-2.00 MMOL/L My Orders Orders - KARTHIK CANADA APRN Cbc With Automated Diff (11/22/18 11:16) Comprehensive Metabolic Panel (11/22/18 11:16) Protime With Inr (11/22/18 11:16) Partial Thromboplastin Time (11/22/18 11:16) Ua Culture If Indicated (11/22/18 11:16) Ct Head/Cervical Spine Wo (11/22/18 11:16) Ekg Tracing (11/22/18 11:16) Troponin I (11/22/18 11:16) Ct Abdomen/Pelvis Wo (11/22/18 11:16) Lipase (11/22/18 11:16) Ondansetron Injection (Zofran Injectio (11/22/18 11:30) Pantoprazole Injection (Protonix Injecti (11/22/18 11:30) Chest 1 View, Ap/Pa Only (11/22/18 11:32) Manual Differential (11/22/18 11:26) Blood Culture (11/22/18 11:47) Lactic Acid Analyzer (11/22/18 11:47) Red Cells Leukocytes Reduced (11/22/18 11:47) Type And Screen (11/22/18 11:47) Chlorpromazine Injection (Thorazine Inje (11/22/18 12:15) Ns Iv 1000 Ml (Sodium Chloride 0.9%) (11/22/18 12:15) Metoclopramide Injection (Reglan Injecti (11/22/18 12:30) Chlorpromazine Injection (Thorazine Inje (11/22/18 12:30) Chlorpromazine Injection (Thorazine Inje (11/22/18 12:30) Piperacillin/Tazobactam (Bulk) (Zosyn In (11/22/18 12:30) Medications Given in ED Current Medications Medications Dose Ordered Sig/Kobi Route Start Time Stop Time Status Last Admin Dose Admin Ondansetron HCl 8 mg ONCE ONCE IVP 11/22/18 11:30 11/22/18 11:31 DC 11/22/18 12:00 8 MG Pantoprazole 80 mg ONCE ONCE IV 11/22/18 11:30 11/22/18 11:31 DC 11/22/18 12:00 80 MG Vital Signs/I&O 11/22/18 13:16 Temp 96.6 Pulse 112 Resp 12 B/P (MAP) 119/77 Pulse Ox 96 O2 Delivery Room Air Capillary Refill : Departure Communication (Admissions) Time/Spoke to Admitting Phy: 13:[address] Burris, agrees to admit 1231- Thorazine 12.5 mg intramuscular ordered for hiccups. Discussed with Dr. Reyes. Agrees to consult. I'll transfuse 2 units of packed red cells, repeat H& H after the second unit, then H&H every 8 hours. Protonix IV twice a day, he received 80 mg IV bolus here in the emergency room. We'll use Zosyn for empiric antibiotic coverage given the leukocytosis. 1408- patient did have an EJ IV on the left. We lost this IV. I attempted right central line internal jugular placement ultrasound-guided. Unsuccessful. Awaiting Dr. Reyes to come place a central line. Impression Primary Impression: GIH (gastrointestinal hemorrhage) Qualified Codes: K92.0 - Hematemesis Additional Impression: Sepsis Qualified Codes: A41.9 - Sepsis, unspecified organism Disposition: ADMITTED INPATIENT Condition: Critical Admissions Decision to Admit Reason: Admit from ER (General) Decision to Admit/Date: Nov 22, 2018 Time/Decision to Admit Time: 12:07 Departure-Patient Inst. Referrals: NURIA AUGUSTINE MD (PCP/Family) Primary Care Physician KARTHIK CANADA APRN Nov 22, 2018 11:20
[2018-11-22] MEDS ORDERED: PANTOPRAZOLE 40 MG (PROTONIX) VIAL IV ONE (11:30)
[2018-11-22] MEDS ORDERED: ONDANSETRON 4 MG/2 ML (SDV) Z0FRAN IVP ONE (11:30)
[2018-11-22 11:44] LABS: BASOPHILS % (AUTO) 0 % (0-10); EOSINOPHILS % (AUTO) 0 % (0-10); HEMATOCRIT 22 % (40-54); LYMPHOCYTES # (AUTO) 3.7 X 10^3 (1.0-4.0); LYMPHOCYTES % (AUTO) 14 % (12-44); MEAN CORPUSCULAR HEMOGLOBIN 26 PG (25-34); MEAN CORPUSCULAR HGB CONC 32 G/DL (32-36); MEAN CORPUSCULAR VOLUME 82 FL (80-99); MEAN PLATELET VOLUME 11.5 FL (7.4-10.4); MONOCYTES # (AUTO) 2.6 X 10^3 (0.0-1.0); MONOCYTES % (AUTO) 10 % (0-12); NEUTROPHILS # (AUTO) 19.6 X 10^3 (1.8-7.8); NEUTROPHILS % (AUTO) 76 % (42-75); PLATELET COUNT 354 10^3/uL (130-400); RED CELL DISTRIBUTION WIDTH 15.2 % (10.0-14.5); WHITE BLOOD COUNT 25.9 10^3/uL (4.3-11.0)
[2018-11-22 11:47] LABS: HEMOGLOBIN 6.9 G/DL (13.3-17.7)
[2018-11-22 12:01] LABS: INR 1.3 (0.8-1.4); PROTHROMBIN TIME PATIENT 16.6 SEC (12.2-14.7)
[2018-11-22 12:05] LABS: BAND NEUTROPHILS 2 %; EOSINOPHILS % (MANUAL) 5 %; LYMPHOCYTES % (MANUAL) 8 %; MONOCYTES % (MANUAL) 6 %; NEUTROPHILS % (MANUAL) 79 %
[2018-11-22 12:06] LABS: HYPOCHROMASIA SLIGHT; NUCLEATED RED BLOOD CELLS 1; POLYCHROMASIA SLIGHT; RBC MORPH NORMAL; TOXIC GRANULATION/VACUOLAZATIO 1+
[2018-11-22 12:08] LABS: ALBUMIN 3.9 GM/DL (3.2-4.5); BILIRUBIN,TOTAL 0.3 MG/DL (0.1-1.0); CALCIUM 10.5 MG/DL (8.5-10.1); CREATININE SERUM 1.58 MG/DL (0.60-1.30); POTASSIUM 3.2 MMOL/L (3.6-5.0); TOTAL PROTEIN 6.2 GM/DL (6.4-8.2)
--- NOTE | 2018-11-22 12:08 | Diagnostic Imaging Report ---
INDICATION: Fall. FINDINGS: Heart size and pulmonary vascularity are within normal limits, and the lungs are clear, bilaterally. IMPRESSION: Unremarkable chest. Dictated by: Dictated on workstation # [id number]
--- NOTE | 2018-11-22 12:12 | Diagnostic Imaging Report ---
PROCEDURE: CT head and CT cervical spine without contrast. TECHNIQUE: Multiple contiguous axial images were obtained through the brain and cervical spine without the use of intravenous contrast. Sagittal and coronal reformations through the cervical spine were then performed. INDICATION: Fall with head and neck injury. Patient reports headache and dizziness as well as neck discomfort. CT HEAD: Ventricles and sulci are diffusely prominent. There is low-density throughout the deep white matter of both cerebral hemispheres. Focal lucencies are seen within the basal ganglia and thalami compatible with nonacute lacunar infarct. There is no abnormal mass effect or shift of midline structures. Calvarium is intact. Mucous retention cyst or polyp is noted within the right maxillary sinus. There is also a nodular focus of soft tissue in the left nasal cavity. There is irregularity involving the anterior left maxillary ridge. This may be related to old injury or surgery. There is opacification of inferior mastoid air cells on the right. IMPRESSION: Senescent findings of the brain without CT evidence of acute intracranial abnormality. There is a mucous retention cyst or polyp in the right maxillary sinus with polypoid density in the left nasal cavity with adjacent osseous irregularity. This may be chronic and clinical correlation is recommended. Direct visualization of this site is recommended to exclude other underlying pathology. CT CERVICAL SPINE: There is straightening of normal cervical lordosis. Vertebral body heights and disc spaces are within expected range with mild degenerative change at C5-C6 level. There is no evidence of acute fracture or subluxation. Atherosclerotic calcification seen within the carotid arteries, greater on the left. IMPRESSION: Loss of cervical lordosis may be secondary to muscle spasm or position. There are degenerative changes most pronounced at the C5-C6 level without other evidence of acute abnormality in the cervical spine. Dictated by: Dictated on workstation # [id number]
[2018-11-22] MEDS ORDERED: NS IV 1000 ML 1,000 ML IV SCH (12:15)
[2018-11-22] MEDS ORDERED: chlorproMAZINE 25MG/ML INJ (THORAZINE) 2 ML AMP IV ONE ×2 (12:15→12:30)
--- NOTE | 2018-11-22 12:19 | Diagnostic Imaging Report ---
PROCEDURE: CT abdomen and pelvis without contrast. TECHNIQUE: Multiple contiguous axial images were obtained through the abdomen and pelvis without the use of intravenous contrast. INDICATION: Fall with abdominal pain and nausea and vomiting. COMPARISON: Comparison is made with prior CT of the abdomen and pelvis from 03/19/2018. FINDINGS: Imaging through the lung bases demonstrates the lung bases to be clear of acute infiltrates. Small nodules in the medial aspect of left lower lobe are stable. Calcified lymph nodes in the subcarinal region are noted. No focal liver or splenic laceration is seen although evaluation is limited without intravenous contrast. No perihepatic or perisplenic fluid collection is identified. The gallbladder is unremarkable. The pancreas is unremarkable. No definite adrenal hematoma is seen. No perinephric fluid collection is identified. Aorta and iliac vessels are calcified but nonaneurysmal. Small and large bowel loops are normal caliber. There is no ascites. There is a large left inguinal hernia with multiple bowel loops extending into the left inguinal canal and scrotal sac. No bowel obstruction is seen. Bony structures appear nonacute. IMPRESSION: 1. No definite evidence of abdominal or pelvic visceral injury. 2. Bilateral inguinal hernias, largest on the left containing multiple bowel loops extending into the scrotal sac. No definite bowel obstruction is seen. Dictated by: Dictated on workstation # [id number]
[2018-11-22] MEDS ORDERED: chlorproMAZINE 25MG/ML INJ (THORAZINE) 2 ML AMP IM ONE (12:30)
[2018-11-22] MEDS ORDERED: PIPERACILLIN/TAZOBACTAM (BULK) 4.5 GM in NS (IVPB) 100 ML IV ONE (12:30)
[2018-11-22] MEDS ORDERED: METOCLOPRAMIDE INJ 10 MG/2 ML (REGLAN) IVP ONE (12:30)
--- NOTE | 2018-11-22 13:00 | NUR ---
1 unit of prbc began infusing per left ej at 100ml/hr. Infusion going well times 15 min but then pump began beeping occlusion. EJ with increased pressure- ej infiltrated. Vipul Patten INDUSTRIAL NURSE notifed. attempted rt ej without success. Patient prepped for ij. Vipul Patten INDUSTRIAL NURSE attempted without success. Dr Reyes notified. COnsent obtained for central line placement
--- NOTE | 2018-11-22 14:46 | NUR ---
central line placed per Dr Phelps. Chest xray for placement done
--- NOTE | 2018-11-22 15:00 | NUR ---
blood resumed- see blood vitals. tolerating well. Vipul marcos placed 10 fr coelho- secured but ceolho is without balloon. Very large rt ing. hernia noted. difficult to push penis out. foreskin at tip of penis is noted to have black discoloration. urine achived
--- NOTE | 2018-11-22 15:13 | Diagnostic Imaging Report ---
INDICATION: Central line placement. COMPARISON: 11/22/2018. FINDINGS: Right IJ catheter has its tip along the undersurface of the medial right clavicle near the expected innominate junctions and upper SVC. There is no pneumothorax. The lungs are clear. IMPRESSION: Central line was placed and positioned as described with no pneumothorax and clear lungs. Dictated by: Dictated on workstation # [id number]
[2018-11-22 15:59] LABS: BILIRUBIN,URINE NEGATIVE (NEGATIVE); CLARITY,URINE CLEAR; COLOR,URINE YELLOW; GLUCOSE, URINE (UA) NEGATIVE (NEGATIVE); KETONES,URINE NEGATIVE (NEGATIVE); LEUKOCYTE ESTERASE ,URINE NEGATIVE (NEGATIVE); NITRITE,URINE NEGATIVE (NEGATIVE); PH,URINE 5 (5-9); PROTEIN,URINE NEGATIVE (NEGATIVE); UROBILINOGEN,URINE NORMAL (NORMAL)
--- NOTE | 2018-11-22 16:09 | Consultation ---
History of Present Illness History of Present Illness Patient Consulted On(naa/time) 11/22/18 16:03 Date Seen by Provider: Nov 22, 2018 Time Seen by Provider: 16:04 History of Present Illness consult requested by Dr. Burris for hematemesis. Patient is a 63-year-old male who has had nausea and vomiting for 3 days. This is been coffee-ground. Patient had syncopal episode at home and was brought to the emergency department by EMS. Patient denies hitting his head or neck that he knows of. Patient states that he's had some slight epigastric abdominal pain. Moderate tenderness. He's been having emesis multiple per day and it has been black coffee-ground in appearance. Patient had syncopal episode today therefore he called for EMS. He has no other complaints at this time. He denies any fever sweats chills shortness of breath or chest pain at this time. Patient also had EJ IV placed which went bad and unable to get access. Asked to place central line as well. Allergies and Home Medications Allergies Coded Allergies: No Known Drug Allergies (Unverified , 05/28/15) Home Medications Aspirin 81 Mg Tab.chew, 81 MG PO DAILY Prescribed by: ALIZA REESE on 05/29/15 1106 Carvedilol 25 Mg Tablet, 25 MG PO BID, (Reported) Clonidine HCl 0.1 Mg Tablet, 0.1 MG PO BID, (Reported) Lisinopril/Hydrochlorothiazide 1 Each Tablet, 1 EACH PO BID, (Reported) Metformin HCl 500 Mg Tablet, 500 MG PO BID, (Reported) Ondansetron 8 Mg Tab.rapdis, 8 MG PO every 4 hours Prescribed by: LORENA MITTAL on 06/09/17 1716 Ondansetron 8 Mg Tab.rapdis, 8 MG PO Q6H PRN for NAUSEA/VOMITING-1ST LINE . Prescribed by: KARTHIK CANADA on 03/19/18 2100 Potassium Chloride 10 Meq Tablet.er, 10 MEQ PO DAILY Prescribed by: ALIZA REESE on 05/29/15 1106 Promethazine HCl 25 Mg Tablet, 25 MG PO Q8H PRN for NAUSEA/VOMITING . Prescribed by: KARTHIK CANADA on 03/19/18 2100 Verapamil HCl 120 Mg Tablet.er, 120 MG PO DAILY, (Reported) Patient Home Medication List Home Medication List Reviewed: Yes Past Rcfmnev-Iiinog-Bcftcp Hx Patient Social History Alcohol Use: Past History Recreational Drug Use: Yes Smoking Status: Never a Smoker 2nd Hand Smoke Exposure: No Recent Foreign Travel: No Contact w/Someone Who Travel: No Recent Infectious Disease Expo: No Recent Hopitalizations: No Surgeries History of Surgeries: Yes (cleft palate, ortho) Respiratory History of Respiratory Disorde: Yes Respiratory Disorders: COPD Cardiovascular History of Cardiac Disorders: Yes Cardiac Disorders: Hypertension Neurological History of Neurological Disord: No Reproductive System Hx Reproductive Disorders: No Gastrointestinal History of Gastrointestinal Di: Yes Gastrointestinal Disorders: Abdominal Hernia, Gastroesophageal Reflux, Hepatitis Musculoskeletal History of Musculoskeletal Dis: No Endocrine History of Endocrine Disorders: Yes (possible diabetes) Endocrine Disorders: Diabetes, Non-Insulin dep Cancer History of Cancer: No Psychosocial History of Psychiatric Problem: No Integumentary History of Skin or Integumenta: No Blood Transfusions History of Blood Disorders: No Adverse Reaction to a Blood Tr: No Family Medical History Significant Family History: No Pertinent Family Hx Family Medial History: Cardiovascular disease 19 FATHER Cerebral embolism G8 BROTHER Lung cancer 19 FATHER Myocardial infarction G8 BROTHER, Onset:50's - 60 G8 BROTHER, Onset:50's - 60 Review of Systems-General Constitutional: see HPI EENTM: no symptoms reported Respiratory: no symptoms reported Cardiovascular: see HPI, syncope Gastrointestinal: see HPI Genitourinary: no symptoms reported Skin: no symptoms reported Psychiatric/Neurological: No Symptoms Reported Physical Exam-General Problems Physical Exam Vital Signs Vital Signs - First Documented 11/22/18 11/22/18 11:12 13:16 Temp 96.6 Pulse 125 Resp 20 B/P (MAP) 117/93 (101) Pulse Ox 99 O2 Delivery Room Air Capillary Refill : Less Than 3 Seconds General Appearance: no apparent distress HEENT: PERRL/EOMI, other (Around the mouth is black dried vomitus) Neck: non-tender, supple Respiratory: chest non-tender, no respiratory distress, no accessory muscle use Cardiovascular: tachycardia Gastrointestinal: tenderness (Epigastric region no guarding or rebounding no palpable masses bilateral inguinal hernias) Rectal: deferred Back: normal inspection, no CVA tenderness, no vertebral tenderness Extremities: non-tender, no calf tenderness Neurologic/Psychiatric: no motor/sensory deficits, alert, normal mood/affect, oriented x 3 Skin: normal color, warm/dry Lymphatic: no adenopathy Data Review Labs Laboratory Tests 11/22/18 11:26: White Blood Count 25.9H, Red Blood Count 2.62L, Hemoglobin 6.9*L, Hematocrit 22L , Mean Corpuscular Volume 82, Mean Corpuscular Hemoglobin 26, Mean Corpuscular Hemoglobin Concent 32, Red Cell Distribution Width 15.2H, Platelet Count 354, Mean Platelet Volume 11.5H, Neutrophils (%) (Auto) 76H, Lymphocytes (%) (Auto) 14, Monocytes (%) (Auto) 10, Eosinophils (%) (Auto) 0, Basophils (%) (Auto) 0, Neutrophils # (Auto) 19.6H, Lymphocytes # (Auto) 3.7, Monocytes # (Auto) 2.6H, Eosinophils # (Auto) 0.0, Basophils # (Auto) 0.0, Neutrophils % (Manual) 79, Lymphocytes % (Manual) 8, Monocytes % (Manual) 6, Eosinophils % (Manual) 5, Band Neutrophils 2, Nucleated Red Blood Cells 1, Toxic Granulation 1+, Polychromasia SLIGHT, Hypochromasia SLIGHT, Blood Morphology Comment NORMAL, Prothrombin Time 16.6H, INR Comment 1.3, Activated Partial Thromboplast Time 24 , Sodium Level 140, Potassium Level 3.2L, Chloride Level 97L, Carbon Dioxide Level 26, Anion Gap 17H, Blood Urea Nitrogen 81H, Creatinine 1.58H, Estimat Glomerular Filtration Rate 45, BUN/Creatinine Ratio 51, Glucose Level 174H, Calcium Level 10.5H, Corrected Calcium 10.6H, Total Bilirubin 0.3, Aspartate Amino Transf (AST/SGOT) 25, Alanine Aminotransferase (ALT/SGPT) 17, Alkaline Phosphatase 28L, Troponin I 0.126, Total Protein 6.2L, Albumin 3.9, Lipase 24 11/22/18 13:01: Lactic Acid Level 3.06*H 11/22/18 15:30: 11/22/18 15:53: Assessment/Plan Assessment/Plan Assessment/Plan patient 63-year-old male with hematemesis of coffee-ground appearing vomitus, anemia secondary to GI bleed Epigastric abdominal pain Syncopal episode Hepatitis C Patient placed on Protonix. Patient being transfused packed red blood cells. Patient needs central line placed for he has no IV access. We'll place a central line Follow hemoglobin. If continues to drop would need EGD for further evaluation ELENA CALL DO Nov 22, 2018 16:08
[2018-11-22 16:12] LABS: BACTERIA,URINE NEGATIVE /HPF; HYALINE CASTS, URINE RARE /LPF; SQUAMOUS EPITHELIAL CELL,UR 0-2 /HPF
[2018-11-22] MEDS ORDERED: ONDANSETRON 4 MG/2 ML (SDV) Z0FRAN IV PRN (16:30)
[2018-11-22] MEDS ORDERED: NS IV 500 ML 500 ML ONE (16:59)
[2018-11-22] MEDS ORDERED: PIPERACILLIN/TAZO 4.5 GM/NS 100 ML IV NR ×2 (17:00)
[2018-11-22] MEDS: NS IV 1000 ML 1,000 ML IV SCH (17:10)
[2018-11-22] MEDS ORDERED: FLU QUADRIvalent (5+ YOA) 2018-2019 (AFLURIA) 0.5 ML IM ONE (17:15)
[2018-11-22] MEDS: METOCLOPRAMIDE 10 MG (REGLAN) TAB PO SCH (18:02)
[2018-11-22] MEDS ORDERED: PIPERACILLIN/TAZO 4.5 GM/NS 100 ML IV SCH ×2 (19:00)
[2018-11-22] MEDS ORDERED: chlorproMAZINE 25MG/ML INJ (THORAZINE) 2 ML AMP IM PRN (20:00)
--- OUTSIDE RECORDS SUMMARY | 2018-11-22 21:40 | XMS REPORT ---
Author Author NURIA AUGUSTINE Organization [facility] Address [address] [place] [address] Care Team Providers Care At Risk Paraprofessional Name Role Phone NURIA AUGUSTINE Unavailable PROBLEMS Type Condition ICD9-CM Code [id number] Code Onset Dates Condition Status SNOMED Code Problem Elevated liver enzymes R74.8 Active 772232257 Problem Atherosclerotic heart disease of [place] coronary artery without angina pectoris I25.10 Active 037967618 Problem Coronary atherosclerosis due to lipid rich plaque I25.83 Active [id number] Problem Type 2 diabetes mellitus with diabetic neuropathy, unspecified whether penitentiary insulin use E11.40 Active 05589481 Problem Other hammer toe(s) (acquired), right foot M20.41 Active 978688666 Problem BMI 35.0-35.9,adult Z68.35 Active 370977985 Problem Non-insulin dependent type 2 diabetes mellitus E11.9 Active 21060599 Problem Other hammer toe(s) (acquired), left foot M20.42 Active 48390937 Problem Essential hypertension I10 Active 80028164 ALLERGIES No Information ENCOUNTERS Encounter Location Date Diagnosis [place] [id number] [place] [address] 18562- 2221 Oct, [place] [address] [place] [id number] [place] [address] 44689- 6240 Sep, [place] [address] [place] [id number] [place] [address] 47308- 9540 Aug, [place] [address] 55757- 1250 Aug, Rapid weight loss R63.4 ; Heartburn R12 ; Essential hypertension I10 ; Type 2 diabetes mellitus with diabetic neuropathy, unspecified whether penitentiary insulin use E11.40 and Atherosclerotic heart disease of [place] coronary artery without angina pectoris I25.10 [place] [address] [place] [address] 66707- 1895 Jul, Onychomycosis B35.1 and Type 2 diabetes mellitus with diabetic neuropathy, unspecified whether penitentiary insulin use E11.40 [place] [address] [place] [id number] [place] [address] 20393- 0798 Apr, Onychomycosis B35.1 and Type 2 diabetes mellitus with diabetic neuropathy, 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 [place] [address] [place] [id number] [place] [address] 00881- 6812 Jan, Onychomycosis B35.1 ; Other hammer toe(s) (acquired), left foot M20.42 ; Other hammer toe(s) (acquired), right foot M20.41 ; Contusion of toe with damage to nail, unspecified toe, initial encounter S90.229A and Non- insulin dependent type 2 diabetes mellitus E11.9 [place] [address] [place] [id number] [place] [address] 74116- 1339 Nov, Type 2 diabetes mellitus with other kidney complication, unspecified terminal worker insulin use status E11.29 and Essential hypertension I10 [place] [id number] [place] [address] 33672- 1258 Oct, [place] [id number] [place] [address] 63501- 4550 Oct, Essential hypertension I10 ; Non-insulin dependent type 2 diabetes mellitus E11.9 and Screening for lipid disorders Z13.220 [place] [id number] [place] [address] 54693- 6569 Aug, Type 2 diabetes mellitus with other kidney complication, unspecified penitentiary insulin use status E11.29 and Atherosclerotic heart disease of [place] coronary artery without angina pectoris I25.10 [place] [address] [place] [id number] [place] [address] 80485- 7906 Jul, [place] [address] [place] [id number] [place] [address] 96599- 4564 Jul, Atherosclerotic heart disease of [place] coronary artery without angina pectoris I25.10 [place] [address] [place] [id number] [place] [address] 17491- 9047 Jul, Non-insulin dependent type 2 diabetes mellitus E11.9 ; Essential hypertension I10 and BMI 35.0-35.9,adult Z68.35 [place] [id number] [place] [address] 28810- 7659 Jun, Other secondary hypertension I15.8 [place] [address] 23273- 6369 May, [address] 51754- 3310 May, Type 2 diabetes mellitus with other kidney complication, unspecified terminal worker insulin use status E11.29 ; Other secondary hypertension I15.8 and Atherosclerotic heart disease of [place] coronary artery without angina pectoris I25.10 [place] [address] 74688- 6287 20 Apr, 2017 Type 2 diabetes mellitus with other diabetic kidney complication, without long-term current use of insulin E11.29 [place] [id number] [place] [address] 71632- 5449 14 Apr, 2017 Type 2 diabetes mellitus with other diabetic kidney complication, without long-term current use of insulin E11.29 ; Other secondary hypertension I15.8 ; Atherosclerotic heart disease of [place] coronary artery without angina pectoris I25.10 and Abnormal liver enzymes R74.8 [place] [address] [place] [id number] [place] [address] 85314- 6419 Mar, Encounter for immunization Z23 [place] [id number] [place] [address] 82339- 1424 Mar, [place] [address] [place] [id number] [place] [address] 73268- 3334 Nov, Encounter for immunization Z23 [address] 38654- 2195 Oct, Other secondary hypertension I15.8 [facility] [address] [address] 8087 23 Sep, 2016 Encounter for immunization Z23 [facility] [address] [place] [id number] [place] [address] 13110- 9228 Sep, [facility] [address] [place] [id number] [place] [address] 23711- 7441 16 Sep, 2016 Other secondary hypertension I15.8 and Wellness examination Z00.00 [facility] [address] [place] [id number] [place] [address] 13690- 5956 05 Sep, 2016 [facility] [address] [place] [id number] [place] [address] 43957- 2129 02 Sep, 2016 Other secondary hypertension I15.8 ; Atherosclerotic heart disease of [place] coronary artery without angina pectoris I25.10 ; Coronary atherosclerosis due to lipid rich plaque I25.83 and Wellness examination Z00.00 [place] [address] [place] [id number] [place] [address] 08719- 4469 Aug, [facility] [address] [place] [id number] [place] [address] 87086- 6760 Aug, [facility] [address] [place] [id number] [place] [address] 25101- 0786 May, Elevated ALT measurement 790.4 [place] [address] [place] [id number] [place] [address] 74260- 0557 May, Elevated ALT measurement 790.4 ; Hypercalcemia 275.42 ; Coronary artery disease 414.00 ; 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 and Hyperparathyroidism 252.00 [place] [address] [place] [id number] [place] [address] 99579- 9704 Apr, Vertigo 780.4 and Sinusitis, acute 461.9 [place] [address] [place] [address] 42717- 9031 Apr, Hypercalcemia 275.42 and Elevated ALT measurement 790.4 [place] [address] [place] [address] [address] 4629 Apr, Hypertension 401.9 [facility] [address] [place] [id number] [address]- 0190 Mar, Positive occult stool blood test 792.1 [place] [address] [place] [id number] [address]- 8485 Mar, Hypertension 401.9 and Colon cancer screening V76.51 [place] [address] [place] [address] 30919- 1737 Mar, Hypertension 401.9 ; Colon cancer screening V76.51 ; Intermittent chest pain 786.50 and TDAP DX V06.1 [place] [address] [place] [id number] [address]- 1604 February, Vomiting 787.03 IMMUNIZATIONS No Known Immunizations SOCIAL HISTORY Never Assessed REASON FOR VISIT Follow Up Apt PLAN OF CARE VITAL SIGNS MEDICATIONS Unknown [...]
--- OUTSIDE RECORDS SUMMARY | 2018-11-22 21:40 | XMS REPORT ---
Author Author SHANELLE MARQUIS Organization [facility] Address [address] [place] [address] Care Team Providers Care Insulation Cutter And Former Name Role Phone OMAR MARQUISIN Unavailable PROBLEMS Type Condition ICD9-CM Code [id number] Code Onset Dates Condition Status SNOMED Code Problem Elevated liver enzymes R74.8 Active 240395327 Problem Atherosclerotic heart disease of [place] coronary artery without angina pectoris I25.10 Active 391645832 Problem Coronary atherosclerosis due to lipid rich plaque I25.83 Active 350052070796995 Problem Type 2 diabetes mellitus with diabetic neuropathy, unspecified whether jail insulin use E11.40 Active 93448456 Problem Other hammer toe(s) (acquired), right foot M20.41 Active 399634163 Problem BMI 35.0-35.9,adult Z68.35 Active 346875072 Problem Non-insulin dependent type 2 diabetes mellitus E11.9 Active 08132047 Problem Other hammer toe(s) (acquired), left foot M20.42 Active 79334707 Problem Essential hypertension I10 Active 88982999 ALLERGIES No Information ENCOUNTERS Encounter Location Date Diagnosis [place] [id number] [place] [address] 20461- 3363 Oct, [place] [address] [place] [id number] [place] [address] 16438- 1075 Sep, [place] [address] [place] [id number] [place] [address] 52215- 3668 Aug, [place] [address] 90557- 9657 Aug, Rapid weight loss R63.4 ; Heartburn R12 ; Essential hypertension I10 ; Type 2 diabetes mellitus with diabetic neuropathy, unspecified whether jail insulin use E11.40 and Atherosclerotic heart disease of [place] coronary artery without angina pectoris I25.10 [place] [address] [place] [address] 70710- 8551 Jul, Onychomycosis B35.1 and Type 2 diabetes mellitus with diabetic neuropathy, unspecified whether jail insulin use E11.40 [place] [address] [place] [id number] [place] [address] 32204- 5784 Apr, Onychomycosis B35.1 and Type 2 diabetes mellitus with diabetic neuropathy, 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 [place] [address] [place] [id number] [place] [address] 31325- 1816 Jan, Onychomycosis B35.1 ; Other hammer toe(s) (acquired), left foot M20.42 ; Other hammer toe(s) (acquired), right foot M20.41 ; Contusion of toe with damage to nail, unspecified toe, initial encounter S90.229A and Non- insulin dependent type 2 diabetes mellitus E11.9 [place] [address] [place] [id number] [place] [address] 56147- 1382 Nov, Type 2 diabetes mellitus with other kidney complication, 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.29 and Essential hypertension I10 [place] [id number] [place] [address] 28082- 8038 Oct, [place] [id number] [place] [address] 46492- 4011 Oct, Essential hypertension I10 ; Non-insulin dependent type 2 diabetes mellitus E11.9 and Screening for lipid disorders Z13.220 [place] [id number] [place] [address] 27323- 0150 Aug, Type 2 diabetes mellitus with other kidney complication, unspecified jail insulin use status E11.29 and Atherosclerotic heart disease of [place] coronary artery without angina pectoris I25.10 [place] [address] [place] [id number] [place] [address] 63435- 0219 Jul, [place] [address] [place] [id number] [place] [address] 04152- 0141 Jul, Atherosclerotic heart disease of [place] coronary artery without angina pectoris I25.10 [place] [address] [place] [id number] [place] [address] 09672- 3967 Jul, Non-insulin dependent type 2 diabetes mellitus E11.9 ; Essential hypertension I10 and BMI 35.0-35.9,adult Z68.35 [place] [id number] [place] [address] 83329- 4573 Jun, Other secondary hypertension I15.8 [place] [address] 49690- 0207 May, [address] 88086- 0590 May, Type 2 diabetes mellitus with other kidney complication, 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.29 ; Other secondary hypertension I15.8 and Atherosclerotic heart disease of [place] coronary artery without angina pectoris I25.10 [place] [address] 28848- 9272 20 Apr, 2017 Type 2 diabetes mellitus with other diabetic kidney complication, without long-term current use of insulin E11.29 [place] [id number] [place] [address] 73539- 5707 14 Apr, 2017 Type 2 diabetes mellitus with other diabetic kidney complication, without long-term current use of insulin E11.29 ; Other secondary hypertension I15.8 ; Atherosclerotic heart disease of [place] coronary artery without angina pectoris I25.10 and Abnormal liver enzymes R74.8 [place] [address] [place] [id number] [place] [address] 27692- 3947 Mar, Encounter for immunization Z23 [place] [id number] [place] [address] 77346- 7755 Mar, [place] [address] [place] [id number] [place] [address] 90611- 4483 Nov, Encounter for immunization Z23 [address] 75102- 0701 Oct, Other secondary hypertension I15.8 [facility] [address] [address]- 2917 23 Sep, 2016 Encounter for immunization Z23 [facility] [address] [place] [id number] [place] [address] 84893- 7370 Sep, [facility] [address] [place] [id number] [place] [address] 76035- 7337 16 Sep, 2016 Other secondary hypertension I15.8 and Wellness examination Z00.00 [facility] [address] [place] [id number] [place] [address] 15898- 4593 05 Sep, 2016 [facility] [address] [place] [id number] [place] [address] 03618- 6206 02 Sep, 2016 Other secondary hypertension I15.8 ; Atherosclerotic heart disease of [place] coronary artery without angina pectoris I25.10 ; Coronary atherosclerosis due to lipid rich plaque I25.83 and Wellness examination Z00.00 [place] [address] [place] [id number] [place] [address] 02756- 3732 Aug, [facility] [address] [place] [id number] [place] [address] 00464- 5189 Aug, [facility] [address] [place] [id number] [place] [address] 73539- 0281 May, Elevated ALT measurement 790.4 [place] [address] [place] [id number] [place] [address] 61488- 1538 May, Elevated ALT measurement 790.4 ; Hypercalcemia 275.42 ; Coronary artery disease 414.00 ; 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 and Hyperparathyroidism 252.00 [place] [address] [place] [id number] [place] [address] 16749- 5036 Apr, Vertigo 780.4 and Sinusitis, acute 461.9 [place] [address] [place] [address] 17414- 6040 Apr, Hypercalcemia 275.42 and Elevated ALT measurement 790.4 [place] [address] [place] [id number] [address]- 5126 Apr, Hypertension 401.9 [place] [address] [place] [id number] [address]- 7269 Mar, Positive occult stool blood test 792.1 [place] [address] [place] [id number] [address]- 5208 Mar, Hypertension 401.9 and Colon cancer screening V76.51 [place] [address] [place] [id number] [address]- 6566 Mar, Hypertension 401.9 ; Colon cancer screening V76.51 ; Intermittent chest pain 786.50 and TDAP DX V06.1 [place] [address] [place] [id number] [address]- 0055 February, Vomiting 787.03 IMMUNIZATIONS No Known Immunizations SOCIAL HISTORY Never Assessed REASON FOR VISIT 3 month f/u Bonifacio Banuelos MA PLAN OF CARE Activity Details Follow Up 3 Months Reason: VITAL SIGNS Height 5'8" in 2018-08-01 Blood pressure systolic 150 mmHg 2018-08-01 Blood pressure diastolic 86 mmHg 2018-08-01 MEDICATIONS Medication Instructions Dosage Frequency Start Date End Date Duration Status Clonidine HCl 0.1MG Orally Twice a day TAKE ONE TABLET BY MOUTH TWICE DAILY 12h 90 Unknown Atorvastatin Calcium 20 mg Orally Once a day 1 tablet 24h Sep, 90 days Unknown Metformin HCl 1000 MG Orally Twice a day 1 tablet with meals 12h Apr, 90 days Unknown Lisinopril-Hydrochlorothiazide 20-25 MG Orally 2 times a day 1 tablet 12h 90 days Unknown Carvedilol 25 MG Orally Twice a day 1 tablet with food 12h 90 days Unknown Januvia 100 mg Orally Once a day 1 tablet 24h 30 Unknown Klor-Con 10 10 MEQ 1 tablet Once a day Orally 30 days 30 Unknown Verapamil HCl 120 MG TAKE ONE TABLET BY MOUTH TWICE DAILY 30 Unknown Low-Dose Aspirin 81 MG Orally Once a day 1 tablet 24h Unknown RESULTS No Results PROCEDURES Procedure Date Ordered Result Body Site DEBRIDE NAIL, 6 OR MORE Aug 01, 2018 INSTRUCTIONS MEDICATIONS ADMINISTERED No Known Medications MEDICAL [...]
--- OUTSIDE RECORDS SUMMARY | 2018-11-22 21:40 | XMS REPORT ---
Author Author SHANELLE MARQUIS Organization [facility] Address [address] [place] [address] Care Team Providers Care Enrollment Manager Name Role Phone BENITEZOMAR LipscombIN Unavailable PROBLEMS Type Condition ICD9-CM Code IWU90-MK Code Onset Dates Condition Status SNOMED Code Problem Elevated liver enzymes R74.8 Active 354459037 Problem Atherosclerotic heart disease of [place] coronary artery without angina pectoris I25.10 Active 480431723 Problem Coronary atherosclerosis due to lipid rich plaque I25.83 Active 894574472050523 Problem Other hammer toe(s) (acquired), right foot M20.41 Active 658433861 Problem Other hammer toe(s) (acquired), left foot M20.42 Active 79849438 Problem Non-insulin dependent type 2 diabetes mellitus E11.9 Active 65185553 Problem Other secondary hypertension I15.8 Active 78559580 Problem Essential hypertension I10 Active 36659868 Problem BMI 35.0-35.9,adult Z68.35 Active 325458864 ALLERGIES Substance Reaction Event Type Date Status Codeine Sulfate nausea Drug Allergy Apr, Active ENCOUNTERS Encounter Location Date Diagnosis [place] [id number] [place] [address] 24694- 4448 Jul, [place] [address] [place] [id number] [place] [address] 27281- 6145 Apr, Onychomycosis B35.1 and Type 2 diabetes mellitus with diabetic neuropathy, 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 [place] [address] [place] [id number] [place] [address] 57546- 5800 Jan, Onychomycosis B35.1 ; Other hammer toe(s) (acquired), left foot M20.42 ; Other hammer toe(s) (acquired), right foot M20.41 ; Contusion of toe with damage to nail, unspecified toe, initial encounter S90.229A and Non- insulin dependent type 2 diabetes mellitus E11.9 [place] [address] [place] [id number] [place] [address] 06225- 9200 Nov, Type 2 diabetes mellitus with other kidney complication, 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 and Essential hypertension I10 [place] [address] [place] [id number] [place] [address] 00244- 0639 Oct, [place] [address] [place] [id number] [place] [address] 71617- 5874 Oct, Essential hypertension I10 ; Non-insulin dependent type 2 diabetes mellitus E11.9 and Screening for lipid disorders Z13.220 [place] [address] [place] [id number] [place] [address] 06097- 4733 Aug, Type 2 diabetes mellitus with other kidney complication, 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 and Atherosclerotic heart disease of [place] coronary artery without angina pectoris I25.10 [place] [address] [place] [id number] [place] [address] 57951- 2140 Jul, [place] [address] [place] [id number] [place] [address] 25092- 8484 Jul, Atherosclerotic heart disease of [place] coronary artery without angina pectoris I25.10 [place] [address] [place] [id number] [place] [address] 14742- 9661 Jul, Non-insulin dependent type 2 diabetes mellitus E11.9 ; Essential hypertension I10 and BMI 35.0-35.9,adult Z68.35 [place] [address] [place] [id number] [place] [address] 57720- 3335 Jun, Other secondary hypertension I15.8 [place] [address] [place] [id number] [place] [address] 66600- 6973 May, [place] [address] [place] [id number] [place] [address] 00214- 3387 May, Type 2 diabetes mellitus with other kidney complication, unspecified jail insulin use status E11.29 ; Other secondary hypertension I15.8 and Atherosclerotic heart disease of [place] coronary artery without angina pectoris I25.10 [facility] [address] [place] [id number] [place] [address] 68093- 2191 20 Apr, 2017 Type 2 diabetes mellitus with other diabetic kidney complication, without long-term current use of insulin E11.29 [facility] [address] [place] [id number] [place] [address] 53786- 5121 14 Apr, 2017 Type 2 diabetes mellitus with other diabetic kidney complication, without long-term current use of insulin E11.29 ; Other secondary hypertension I15.8 ; Atherosclerotic heart disease of [place] coronary artery without angina pectoris I25.10 and Abnormal liver enzymes R74.8 [place] [address] [place] [id number] [place] [address] 96058- 7737 30 Mar, 2017 Encounter for immunization Z23 [place] [address] [place] [id number] [place] [address] 38728- 2405 Mar, [place] [address] 37210- 4410 Nov, Encounter for immunization Z23 [place] [address] 61569- 0721 Oct, Other secondary hypertension I15.8 [place] [address] [place] [id number] [place] [address] 61440- 0269 Sep, Encounter for immunization Z23 [facility] [address] [place] [id number] [place] [address] 46919- 6512 Sep, [facility] [address] [place] [id number] [place] [address] 40731- 1021 Sep, Other secondary hypertension I15.8 and Wellness examination Z00.00 [place] [address] 96551- 8257 05 Sep, 2016 [place] [address] [place] [id number] [place] [address] 20252- 7813 Sep, Other secondary hypertension I15.8 ; Atherosclerotic heart disease of [place] coronary artery without angina pectoris I25.10 ; Coronary atherosclerosis due to lipid rich plaque I25.83 and Wellness examination Z00.00 [place] [id number] [place] [address] 34155- 7320 Aug, [place] [address] [place] [id number] [place] [address] 87870- 0582 Aug, [place] [address] 36931- 3812 May, Elevated ALT measurement 790.[address] 38053- 6264 May, Elevated ALT measurement 790.4 ; Hypercalcemia 275.42 ; Coronary artery disease 414.00 ; 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 and Hyperparathyroidism 252.00 [place] [id number] [place] [address] 58398- 8515 Apr, Vertigo 780.4 and Sinusitis, acute 461.9 [place] [id number] [place] [address] 66582- 1416 Apr, Hypercalcemia 275.42 and Elevated ALT measurement 790.[address] 95724- 9903 Apr, Hypertension 401.9 [place] [address] [place] [address] 28061- 3661 Mar, Positive occult stool blood test 792.[address] 35724- 8195 Mar, Hypertension 401.9 and Colon cancer screening V76.[address] 06970- 6275 Mar, Hypertension 401.9 ; Colon cancer screening V76.51 ; Intermittent chest pain 786.50 and TDAP DX V06.1 [place] [id number] [place] [address] 42946- 3154 February, Vomiting 787.03 IMMUNIZATIONS No Known Immunizations SOCIAL HISTORY Never Assessed REASON FOR VISIT DM foot exam - AMALIA Banuelos PLAN OF CARE Activity Details Follow Up 3 Months Reason: VITAL SIGNS Height 5'8" in 2018-05-02 Blood pressure systolic 120 mmHg 2018-05-02 Blood pressure diastolic 86 mmHg 2018-05-02 MEDICATIONS Medication Instructions Dosage Frequency Start Date End Date Duration Status Metformin HCl 1000 MG Orally Twice a day 1 tablet with meals 12h 14 Apr, 2017 90 days Unknown Verapamil HCl 120 MG TAKE ONE TABLET BY MOUTH TWICE DAILY 30 Unknown Januvia 100 mg Orally Once a day 1 tablet 24h 30 Unknown Low-Dose Aspirin 81 MG Orally Once a day 1 tablet 24h Unknown Atorvastatin Calcium 20 mg Orally Once a day 1 tablet 24h Sep, 90 days Unknown Klor-Con 10 10 MEQ 1 tablet Once a day Orally 30 days 30 Unknown Carvedilol 25 MG Orally Twice a day 1 tablet with food 12h 90 days Unknown Clonidine HCl 0.1MG Orally Twice a day TAKE ONE TABLET BY MOUTH TWICE DAILY 12h 90 Unknown Lisinopril-Hydrochlorothiazide 20-25 MG Orally 2 times a day 1 tablet 12h 90 days Unknown RESULTS No Results PROCEDURES Procedure Date Ordered Result Body Site DEBRIDE NAIL, 6 OR MORE May 02, 2018 INSTRUCTIONS MEDICATIONS ADMINISTERED No Known Medications [...]
--- OUTSIDE RECORDS SUMMARY | 2018-11-22 21:40 | XMS REPORT ---
Author Author SHANELLE MARQUIS Organization [facility] Address [address] [place] [address] Care Team Providers Care Fire Sprinkler Installer Name Role Phone BENITEZOMAR LipscombIN Unavailable PROBLEMS Type Condition ICD9-CM Code ZMM73-SK Code Onset Dates Condition Status SNOMED Code Problem Elevated liver enzymes R74.8 Active 870266785 Problem Atherosclerotic heart disease of [place] coronary artery without angina pectoris I25.10 Active 145514837 Problem Coronary atherosclerosis due to lipid rich plaque I25.83 Active 434769274175519 Problem Other hammer toe(s) (acquired), right foot M20.41 Active 283898082 Problem Other hammer toe(s) (acquired), left foot M20.42 Active 64018542 Problem Non-insulin dependent type 2 diabetes mellitus E11.9 Active 06183370 Problem Other secondary hypertension I15.8 Active 65302949 Problem Essential hypertension I10 Active 70247997 Problem BMI 35.0-35.9,adult Z68.35 Active 453078792 ALLERGIES No Information ENCOUNTERS Encounter Location Date Diagnosis [place] [address] [place] [address] 80876- 4772 Jul, [place] [address] [place] [id number] [place] [address] 58460- 2277 Apr, Onychomycosis B35.1 and Type 2 diabetes mellitus with diabetic neuropathy, unspecified whether jail insulin use E11.40 [place] [address] [place] [id number] [place] [address] 83412- 6926 Jan, Onychomycosis B35.1 ; Other hammer toe(s) (acquired), left foot M20.42 ; Other hammer toe(s) (acquired), right foot M20.41 ; Contusion of toe with damage to nail, unspecified toe, initial encounter S90.229A and Non- insulin dependent type 2 diabetes mellitus E11.9 [place] [address] [address]- 8053 Nov, Type 2 diabetes mellitus with other kidney complication, unspecified jail insulin use status E11.29 and Essential hypertension I10 [place] [address] [place] [id number] [address]- 8666 Oct, [place] [address] [place] [id number] [place] [address] 35774- 9591 Oct, Essential hypertension I10 ; Non-insulin dependent type 2 diabetes mellitus E11.9 and Screening for lipid disorders Z13.220 [place] [address] [place] [id number] [place] [address] 00972- 6944 Aug, Type 2 diabetes mellitus with other kidney complication, unspecified jail insulin use status E11.29 and Atherosclerotic heart disease of [place] coronary artery without angina pectoris I25.10 [place] [address] [place] [address] [address]- 7785 Jul, [place] [address] [place] [id number] [place] [address] 35536- 8156 Jul, Atherosclerotic heart disease of [place] coronary artery without angina pectoris I25.10 [place] [address] [address]- 1524 Jul, Non-insulin dependent type 2 diabetes mellitus E11.9 ; Essential hypertension I10 and BMI 35.0-35.9,adult Z68.35 [place] [address] [address]- 9367 Jun, Other secondary hypertension I15.8 [place] [address] [place] [address] 11194- 8063 May, [place] [address] [place] [id number] [place] [address] 33966- 6026 May, Type 2 diabetes mellitus with other kidney complication, 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 ; Other secondary hypertension I15.8 and Atherosclerotic heart disease of [place] coronary artery without angina pectoris I25.10 [place] [address] [place] [address] 41859- 5532 20 Apr, 2017 Type 2 diabetes mellitus with other diabetic kidney complication, without long-term current use of insulin E11.29 [place] [address] [place] [address] 91918- 9757 14 Apr, 2017 Type 2 diabetes mellitus with other diabetic kidney complication, without long-term current use of insulin E11.29 ; Other secondary hypertension I15.8 ; Atherosclerotic heart disease of [place] coronary artery without angina pectoris I25.10 and Abnormal liver enzymes R74.8 [place] [address] [place] [id number] [place] [address] 91070- 4583 Mar, Encounter for immunization Z23 [place] [address] [place] [id number] [place] [address] 18121- 7945 Mar, [place] [address] [place] [id number] [place] [address] 54717- 6549 Nov, Encounter for immunization Z23 [place] [address] [place] [id number] [place] [address] 47907- 4756 Oct, Other secondary hypertension I15.8 [place] [address] [place] [id number] [place] [address] 96488- 9328 Sep, Encounter for immunization Z23 [place] [address] [place] [id number] [place] [address] 04219- 0618 Sep, [place] [address] [place] [id number] [place] [address] 41694- 7173 Sep, Other secondary hypertension I15.8 and Wellness examination Z00.00 [place] [address] [place] [id number] [place] [address] 47852- 2210 05 Sep, 2016 [place] [address] [place] [id number] [place] [address] 36710- 1120 Sep, Other secondary hypertension I15.8 ; Atherosclerotic heart disease of [place] coronary artery without angina pectoris I25.10 ; Coronary atherosclerosis due to lipid rich plaque I25.83 and Wellness examination Z00.00 [place] [id number] [place] [address] 79018- 9430 Aug, [place] [id number] [place] [address] 47033- 6518 Aug, [place] [address] [place] [id number] [place] [address] 70522- 3783 May, Elevated ALT measurement 790.4 [place] [id number] [place] [address] 42129- 4932 May, Elevated ALT measurement 790.4 ; Hypercalcemia 275.42 ; Coronary artery disease 414.00 ; 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 and Hyperparathyroidism 252.00 [place] [address] [place] [address] 25937- 5912 Apr, Vertigo 780.4 and Sinusitis, acute 461.[address] 37173- 1561 Apr, Hypercalcemia 275.42 and Elevated ALT measurement 790.4 [place] [id number] [place] [address] 22021- 6582 Apr, Hypertension 401.9 [place] [address] [place] [address] 69261- 1929 Mar, Positive occult stool blood test 792.1 [place] [id number] [place] [address] 26206- 0086 Mar, Hypertension 401.9 and Colon cancer screening V76.51 [place] [address] [place] [address] 37145- 7033 Mar, Hypertension 401.9 ; Colon cancer screening V76.51 ; Intermittent chest pain 786.50 and TDAP DX V06.1 [place] [id number] [place] [address] 57777- 5879 February, Vomiting 787.03 IMMUNIZATIONS No Known Immunizations SOCIAL HISTORY Never Assessed REASON FOR VISIT DM foot exam. Consult Dr. Marquis;Marti RT(R) PLAN OF CARE Activity Details Follow Up 3 Months Reason: VITAL SIGNS Height 5'8" in 2018-01-31 Blood pressure systolic 164 mmHg 2018-01-31 Blood pressure diastolic 108 mmHg 2018-01-31 MEDICATIONS Unknown Medications RESULTS No Results PROCEDURES Procedure Date Ordered Result Body Site DEBRIDE NAIL, 1-5 January 31, 2018 INSTRUCTIONS MEDICATIONS ADMINISTERED No Known Medications [...]
--- OUTSIDE RECORDS SUMMARY | 2018-11-22 21:40 | XMS REPORT ---
Author Author NURIA AUGUSTINE Organization [facility] Address [address] [place] [address] Care Team Providers Care Miter Cutter Name Role Phone NURIA AUGUSTINE Unavailable PROBLEMS Type Condition ICD9-CM Code DKR56-BO Code Onset Dates Condition Status SNOMED Code Problem Elevated liver enzymes R74.8 Active 194963672 Problem Atherosclerotic heart disease of [place] coronary artery without angina pectoris I25.10 Active 279674951 Problem Coronary atherosclerosis due to lipid rich plaque I25.83 Active 339018181724110 Problem Other hammer toe(s) (acquired), right foot M20.41 Active 361917654 Problem Other hammer toe(s) (acquired), left foot M20.42 Active 34762536 Problem Non-insulin dependent type 2 diabetes mellitus E11.9 Active 21596811 Problem Other secondary hypertension I15.8 Active 22620401 Problem Essential hypertension I10 Active 94122185 Problem BMI 35.0-35.9,adult Z68.35 Active 227439459 ALLERGIES No Information ENCOUNTERS Encounter Location Date Diagnosis [place] [address] [place] [address] 83463- 7157 Apr, [place] [address] [place] [id number] [place] [address] 96909- 5017 Jan, Onychomycosis B35.1 ; Other hammer toe(s) (acquired), left foot M20.42 ; Other hammer toe(s) (acquired), right foot M20.41 ; Contusion of toe with damage to nail, unspecified toe, initial encounter S90.229A and Non- insulin dependent type 2 diabetes mellitus E11.9 [place] [address] [place] [address] 80007- 0858 Nov, Type 2 diabetes mellitus with other kidney complication, 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 and Essential hypertension I10 [place] [address] [address]- 2547 Oct, [place] [address] [address]- 3649 Oct, Essential hypertension I10 ; Non-insulin dependent type 2 diabetes mellitus E11.9 and Screening for lipid disorders Z13.220 [place] [address] [place] [id number] [place] [address] 56434- 3084 Aug, Type 2 diabetes mellitus with other kidney complication, 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 and Atherosclerotic heart disease of [place] coronary artery without angina pectoris I25.10 [place] [address] [place] [id number] [address]- 9860 Jul, [place] [address] [place] [id number] [address]- 0559 Jul, Atherosclerotic heart disease of [place] coronary artery without angina pectoris I25.10 [place] [address] [address]- 2134 Jul, Non-insulin dependent type 2 diabetes mellitus E11.9 ; Essential hypertension I10 and BMI 35.0-35.9,adult Z68.35 [place] [address] [address]- 2363 Jun, Other secondary hypertension I15.8 [place] [address] [address]- 8855 May, [place] [address] [address]- 7249 May, Type 2 diabetes mellitus with other kidney complication, 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 ; Other secondary hypertension I15.8 and Atherosclerotic heart disease of [place] coronary artery without angina pectoris I25.10 [place] [address] [place] [id number] [address]- 1058 Apr, Type 2 diabetes mellitus with other diabetic kidney complication, without long-term current use of insulin E11.29 [facility] [address] [place] [id number] [place] [address] 81311- 2065 14 Apr, 2017 Type 2 diabetes mellitus with other diabetic kidney complication, without long-term current use of insulin E11.29 ; Other secondary hypertension I15.8 ; Atherosclerotic heart disease of [place] coronary artery without angina pectoris I25.10 and Abnormal liver enzymes R74.8 [place] [address] [place] [id number] [place] [address] 36914- 6517 30 Mar, 2017 Encounter for immunization Z23 [facility] [address] [place] [id number] [place] [address] 07573- 0872 Mar, [place] [address] 37891- 9123 Nov, Encounter for immunization Z23 [facility] [address] [place] [id number] [place] [address] 99074- 6520 Oct, Other secondary hypertension I15.8 [place] [address] [place] [id number] [place] [address] 78038- 3079 Sep, Encounter for immunization Z23 [facility] [address] [place] [id number] [place] [address] 36874- 1860 Sep, [facility] [address] [place] [id number] [place] [address] 89408- 3146 Sep, Other secondary hypertension I15.8 and Wellness examination Z00.00 [place] [address] [place] [id number] [place] [address] 64629- 4507 Sep, [facility] [address] [place] [id number] [place] [address] 49013- 4939 Sep, Other secondary hypertension I15.8 ; Atherosclerotic heart disease of [place] coronary artery without angina pectoris I25.10 ; Coronary atherosclerosis due to lipid rich plaque I25.83 and Wellness examination Z00.00 [facility] [address] [place] [id number] [place] [address] 58374- 7211 Aug, [facility] [address] [place] [address]- 1629 Aug, [place] [address] [place] [id number] [place] [address] 06220- 4472 May, Elevated ALT measurement 790.4 [place] [address] [place] [id number] [place] [address] 34406- 6473 May, Elevated ALT measurement 790.4 ; Hypercalcemia 275.42 ; Coronary artery disease 414.00 ; 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 and Hyperparathyroidism 252.00 [place] [id number] [place] [address] 01041- 3182 Apr, Vertigo 780.4 and Sinusitis, acute 461.[address] 65281- 4029 Apr, Hypercalcemia 275.42 and Elevated ALT measurement 790.[address] 65519- 6840 Apr, Hypertension 401.9 [place] [id number] [place] [address] 30251- 2283 Mar, Positive occult stool blood test 792.1 [place] [id number] [place] [address] 46303- 7897 Mar, Hypertension 401.9 and Colon cancer screening V76.51 [place] [id number] [place] [address] 36091- 4586 Mar, Hypertension 401.9 ; Colon cancer screening V76.51 ; Intermittent chest pain 786.50 and TDAP DX V06.1 [place] [id number] [place] [address] 05613- 7364 February, Vomiting 787.03 IMMUNIZATIONS No Known Immunizations SOCIAL HISTORY Never Assessed REASON FOR VISIT Refill request PLAN OF CARE VITAL SIGNS MEDICATIONS Medication Instructions Dosage Frequency Start Date End Date Duration Status Carvedilol 25 MG Orally Twice a day 1 tablet with food 12h 30 days Active RESULTS No Results PROCEDURES [...]
--- OUTSIDE RECORDS SUMMARY | 2018-11-22 21:41 | XMS REPORT ---
Author Author NURIA AUGUSTINE Organization [facility] Address [address] [place] [address] Care Team Providers Care Anthropologist Physical Name Role Phone NURIA AUGUSTINE Unavailable PROBLEMS Type Condition ICD9-CM Code [id number] Code Onset Dates Condition Status SNOMED Code Problem Elevated liver enzymes R74.8 Active 680952911 Problem Atherosclerotic heart disease of [place] coronary artery without angina pectoris I25.10 Active 618662108 Problem Coronary atherosclerosis due to lipid rich plaque I25.83 Active 948466672800083 Problem Other hammer toe(s) (acquired), right foot M20.41 Active 635146173 Problem Other hammer toe(s) (acquired), left foot M20.42 Active 07618371 Problem Non-insulin dependent type 2 diabetes mellitus E11.9 Active 43551425 Problem Other secondary hypertension I15.8 Active 06909480 Problem Essential hypertension I10 Active 37898763 Problem BMI 35.0-35.9,adult Z68.35 Active 276705182 ALLERGIES Substance Reaction Event Type Date Status Codeine Sulfate nausea Drug Allergy Oct, Active ENCOUNTERS Encounter Location Date Diagnosis [facility] [id number] [place] [address] Apr, [facility] [id number] [place] [address]- [address] Jan, Onychomycosis B35.1 ; Other hammer toe(s) (acquired), left foot M20.42 ; Other hammer toe(s) (acquired), right foot M20.41 ; Contusion of toe with damage to nail, unspecified toe, initial encounter S90.229A and Non- insulin dependent type 2 diabetes mellitus E11.9 [facility] [id number] [place] [address] Nov, Type 2 diabetes mellitus with other kidney complication, 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 and Essential hypertension I10 [place] [address] [address] Oct, [facility] [address] [address] Oct, Essential hypertension I10 ; Non-insulin dependent type 2 diabetes mellitus E11.9 and Screening for lipid disorders Z13.220 [place] [id number] [place] [address] Aug, Type 2 diabetes mellitus with other kidney complication, 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 and Atherosclerotic heart disease of [place] coronary artery without angina pectoris I25.10 [place] [id number] [address] Jul, [place] [id number] [place] [address] Jul, Atherosclerotic heart disease of [place] coronary artery without angina pectoris I25.10 [place] [address], [place] [address] Jul, Non-insulin dependent type 2 diabetes mellitus E11.9 ; Essential hypertension I10 and BMI 35.0-35.9,adult Z68.35 [place] [address], [place] [address] Jun, Other secondary hypertension I15.8 [place] [address] [address] May, [place] [address] [address] May, Type 2 diabetes mellitus with other kidney complication, unspecified fci insulin use status E11.29 ; Other secondary hypertension I15.8 and Atherosclerotic heart disease of [place] coronary artery without angina pectoris I25.10 [place] [address], [place] [address] 20 Irving, 2017 Type 2 diabetes mellitus with other diabetic kidney complication, without long-term current use of insulin E11.29 [place] [id number] [place] [address] 14 Apr, 2017 Type 2 diabetes mellitus with other diabetic kidney complication, without long-term current use of insulin E11.29 ; Other secondary hypertension I15.8 ; Atherosclerotic heart disease of [place] coronary artery without angina pectoris I25.10 and Abnormal liver enzymes R74.8 [place] [id number] [place] [address]- [address] 30 Mar, 2017 Encounter for immunization Z23 [place] [id number] [place] [address]4538- [address] 12 Mar, 2017 [place] [id number] [place] [address]61[address] Nov, Encounter for immunization Z23 [place] [address] [address] Oct, Other secondary hypertension I15.8 [place] [id number] [place] [address]- [address] Sep, Encounter for immunization Z23 [place] [id number] [place] [address] 48360- 8066 Sep, [place] [id number] [place] [address]23[address]- 59[address] Sep, Other secondary hypertension I15.8 and Wellness examination Z00.00 [place] [id number] [place] [address]- [address] 05 Sep, 2016 [place] [id number] [place] [address] 657[address]- [address] Sep, Other secondary hypertension I15.8 ; Atherosclerotic heart disease of [place] coronary artery without angina pectoris I25.10 ; Coronary atherosclerosis due to lipid rich plaque I25.83 and Wellness examination Z00.00 [place] [id number] [place] [address]- 37[address] Aug, [place] [id number] [place] [address]- 2099 Aug, [address] [address] May, Elevated ALT measurement 790.[address] [address] May, Elevated ALT measurement 790.4 ; Hypercalcemia 275.42 ; Coronary artery disease 414.00 ; 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 and Hyperparathyroidism 252.[address] [address] Apr, Vertigo 780.4 and Sinusitis, acute 461.[address] [address]- [address] Apr, Hypercalcemia 275.42 and Elevated ALT measurement 790.[address] [address] Apr, Hypertension 401.[address] [address]- [address] Mar, Positive occult stool blood test 792.1 [place] [id number] [place] [address]06- [address] Mar, Hypertension 401.9 and Colon cancer screening V76.51 [place] [id number] [place] [address] 86715- [address] Mar, Hypertension 401.9 ; Colon cancer screening V76.51 ; Intermittent chest pain 786.50 and TDAP DX V06.[address] [address]- [address] February, Vomiting 787.03 IMMUNIZATIONS No Known Immunizations SOCIAL HISTORY Never Assessed REASON FOR VISIT Diabetes f/u-ERIN Braun, Has been out of clonidine, lisinopril-hctz, and carvedilol for weeks. , Blood sugars have been running 85 - 115. PLAN OF CARE Activity Details Follow Up 3 Months with Sandy HTN/DM Reason: VITAL SIGNS Height 5'8" in 2017-10-15 Weight 247 lbs 2017-10-15 Heart Rate 88 bpm 2017-10-15 Respiratory Rate 20 2017-10-15 BMI 37.55 kg/m2 2017-10-15 Blood pressure systolic 190 mmHg 2017-10-15 Blood pressure diastolic 110 mmHg 2017-10-15 MEDICATIONS Medication Instructions Dosage Frequency Start Date End Date Duration Status Metformin HCl 1000 MG Orally Twice a day 1 tablet with meals 12h 14 Apr, 2017 90 days Active Carvedilol 25 MG Orally Twice a day 1 tablet with food 12h 90 days Active Clonidine HCl 0.1MG Orally Twice a day TAKE ONE TABLET BY MOUTH TWICE DAILY 12h 90 Active Low-Dose Aspirin 81 MG Orally Once a day 1 tablet 24h Active Lisinopril-Hydrochlorothiazide 20-25 MG Orally 2 times a day 1 tablet 12h 90 days Active Klor-Con 10 10 MEQ 1 tablet Once a day Orally 30 days 30 Not- Taking Verapamil HCl 120 MG Orally 2 times a day 1 tablet 12h 30 Active Januvia 100 mg Orally Once a day 1 tablet 24h 11 May, 2017 90 days Active Atorvastatin Calcium 20 mg Orally Once a day 1 tablet 24h Sep, 90 days Not-Taking RESULTS No Results PROCEDURES Procedure Date Ordered Result Body Site LIPID PANEL Oct 15, 2017 VENIPUNCT, ROUTINE* Oct 15, 2017 GLYCATED HEMOGLOBIN TEST Oct 15, 2017 MICROALBUMIN, QUANTITATIVE Oct 15, 2017 ASSAY OF URINE CREATININE Oct 15, 2017 COMPLETE CBC W/AUTO DIFF WBC Oct 15, 2017 COMPREHEN METABOLIC PANEL Oct 15, 2017 INSTRUCTIONS MEDICATIONS ADMINISTERED No Known Medications [...]
--- OUTSIDE RECORDS SUMMARY | 2018-11-22 21:42 | XMS REPORT | Continuity of Care Document ---
Author Author [facility] Organization [facility] Address Unknown Phone Unavailable Allergies Active Description Code Type Severity Reaction Onset Reported/Identified Relationship to Patient Clinical Status Yes No Known Drug Allergies [id number] Drug Allergy Unknown N/A 05/28/2015 Medications There is no data. Problems Date Dx Coded Attending Type Code Diagnosis Diagnosed By 05/29/2015 ALIZA REESE MD, FACC FACP CCDS Ot 275.42 HYPERCALCEMIA 05/29/2015 MARY ANN CRAWFORD FACC, ALIZA FACP CCDS Ot 276.8 HYPOPOTASSEMIA 05/29/2015 ALIZA REESE MD, FACC FACP CCDS Ot 278.00 OBESITY, NOS 05/29/2015 MARY ANN CRAWFORD FACC, ALIZA FACP CCDS Ot 401.9 HYPERTENSION NOS 05/29/2015 MARY ANN CRAWFORD FACC, ALIZA FACP CCDS Ot 414.01 CORONARY ATHEROSCLEROSIS OF [place] CORON 05/29/2015 ALIZA REESE MD, FACC FACP CCDS Ot 414.4 CORONARY ATHEROSCLEROSIS DUE [...] PAIN NOS 05/29/2015 MARY ANN CRAWFORD FACC, ALIZA FACP CCDS Ot 790.29 OTHER ABNORMAL GLUCOSE 05/29/2015 ALIZA REESE MD, FACC FACP CCDS Ot V15.82 HISTORY OF TOBACCO USE 05/29/2015 ALIZA REESE MD, FACC FACP CCDS Ot V58.69 OTH MED,LT,CURRENT USE 05/29/2015 ALIZA REESE MD, FACC FACP CCDS Ot V85.31 BODY MASS INDEX 31.0-31.9, ADULT 07/07/2015 JACQUELINE BAR MD Ot 571.8 07/07/2015 JACQUELINE BAR MD Ot 790.4 11/23/2015 JACQUELINE BAR MD Ot 571.8 11/23/2015 JACQUELINE BAR MD Ot 790.4 01/31/2017 JACQUELINE BAR MD Ot 571.8 CHRONIC LIVER DIS NEC 01/31/2017 JACQUELINE BAR MD Ot 790.4 ELEV TRANSAMINASE/LDH 06/09/2017 LORENA MITTAL MD, Ot E11.9 TYPE 2 DIABETES MELLITUS WITHOUT COMPLIC 06/09/2017 LORENA MITTAL MD Ot I10 ESSENTIAL (PRIMARY) HYPERTENSION 06/09/2017 LORENA MITTAL MD, Ot J44.9 CHRONIC OBSTRUCTIVE PULMONARY DISEASE, U 06/09/2017 LORENA MITTAL MD, Ot K21.9 GASTRO-ESOPHAGEAL REFLUX DISEASE WITHOUT 06/09/2017 LORENA MITTAL MD Ot R11.2 NAUSEA WITH VOMITING, UNSPECIFIED 06/09/2017 LORENA MITTAL MD Ot Z79.82 ALF (CURRENT) USE OF ASPIRIN 06/09/2017 LORENA MITTAL MD Ot Z79.84 DRESS CAP MAKER (CURRENT) USE OF ORAL HYPOGLYC 06/11/2017 LORENA MITTAL MD Ot E11.9 TYPE 2 DIABETES MELLITUS WITHOUT COMPLIC 06/11/2017 LORENA MITTAL MD Ot I10 ESSENTIAL (PRIMARY) HYPERTENSION 06/11/2017 LORENA MITTAL MD, Ot J44.9 CHRONIC OBSTRUCTIVE PULMONARY DISEASE, U 06/11/2017 LORENA MITTAL MD Ot K21.9 GASTRO-ESOPHAGEAL REFLUX DISEASE WITHOUT 06/11/2017 LORENA MITTAL MD Ot R11.2 NAUSEA WITH VOMITING, UNSPECIFIED 06/11/2017 LORENA MITTAL MD Ot Z79.82 DRESS CAP MAKER (CURRENT) USE OF ASPIRIN 06/11/2017 LORENA MITTAL MD Ot Z79.84 DRESS CAP MAKER (CURRENT) USE OF ORAL HYPOGLYC 11/05/2017 JACQUELINE BAR MD Ot 571.8 CHRONIC LIVER DIS NEC 11/05/2017 JACQUELINE BAR MD Ot 790.4 ELEV TRANSAMINASE/LDH 03/04/2018 DIPIKA MD, JACQUELINE N Ot 571.8 CHRONIC LIVER DIS NEC 03/04/2018 JACQUELINE BAR MD Ot 790.4 ELEV TRANSAMINASE/LDH 03/04/2018 CARRINGTON CRAWFORD, CHARU Gurrola Ot M47.816 SPONDYLOSIS W/O MYELOPATHY OR RADICULOPA 03/19/2018 KARTHIK CANADA APRN Ot E11.9 TYPE 2 DIABETES MELLITUS WITHOUT COMPLIC 03/19/2018 KARTHIK CANADA APRN Ot I10 ESSENTIAL (PRIMARY) HYPERTENSION 03/19/2018 KARTHIK CANADA APRN Ot J44.9 CHRONIC OBSTRUCTIVE PULMONARY DISEASE, U 03/19/2018 KARTHIK CANADA APRN Ot K21.9 GASTRO-ESOPHAGEAL REFLUX DISEASE WITHOUT 03/19/2018 KARTHIK CANADA APRN Ot N40.1 BENIGN PROSTATIC HYPERPLASIA WITH LOWER 03/19/2018 KARTHIK CANADA APRN Ot R11.2 NAUSEA WITH VOMITING, UNSPECIFIED 03/19/2018 KARTHIK CANADA APRN Ot Z79.82 DRESS CAP MAKER (CURRENT) USE OF ASPIRIN 03/19/2018 KARTHIK CANADA APRN Ot Z87.19 PERSONAL HISTORY OF OTHER DISEASES OF 03/19/2018 JACQUELINE BAR MD Ot 571.8 CHRONIC LIVER DIS NEC 03/19/2018 JACQUELINE BAR MD Ot 790.4 ELEV TRANSAMINASE/LDH 03/19/2018 CARRINGTON CRAWFORD, CHARU Gurrola Ot M47.816 SPONDYLOSIS W/O MYELOPATHY OR RADICULOPA 03/21/2018 KARTHIK CANADA APRN Ot E11.9 TYPE 2 DIABETES MELLITUS WITHOUT COMPLIC 03/21/2018 KARTHIK CANADA APRN Ot I10 ESSENTIAL (PRIMARY) HYPERTENSION 03/21/2018 KARTHIK CANADA APRN Ot J44.9 CHRONIC OBSTRUCTIVE PULMONARY DISEASE, U 03/21/2018 KARTHIK CANADA APRN Ot K21.9 GASTRO-ESOPHAGEAL REFLUX DISEASE WITHOUT 03/21/2018 KARTHIK CANADA APRN Ot N40.1 BENIGN PROSTATIC HYPERPLASIA WITH LOWER 03/21/2018 KARTHIK CANADA APRN Ot R11.2 NAUSEA WITH VOMITING, UNSPECIFIED 03/21/2018 KARTHIK CANADA APRN Ot Z79.82 ALF (CURRENT) USE OF ASPIRIN 03/21/2018 KARTHIK CANADA APRN Ot Z87.19 PERSONAL HISTORY OF OTHER DISEASES OF 03/25/2018 KARTHIK CANADA APRN Ot E11.9 TYPE 2 DIABETES MELLITUS WITHOUT COMPLIC 03/25/2018 KARTHIK CANADA APRN Ot I10 ESSENTIAL (PRIMARY) HYPERTENSION 03/25/2018 KARTHIK CANADA APRN Ot J44.9 CHRONIC OBSTRUCTIVE PULMONARY DISEASE, U 03/25/2018 KARTHIK CANADA APRN Ot K21.9 GASTRO-ESOPHAGEAL REFLUX DISEASE WITHOUT 03/25/2018 KARTHIK CANADA APRN Ot N40.1 BENIGN PROSTATIC HYPERPLASIA WITH LOWER 03/25/2018 KARTHIK CANADA APRN Ot R11.2 NAUSEA WITH VOMITING, UNSPECIFIED 03/25/2018 KARTHIK CANADA APRN Ot Z79.82 ALF (CURRENT) USE OF ASPIRIN 03/25/2018 KARTHIK CANADA APRN Ot Z87.19 PERSONAL HISTORY OF OTHER DISEASES OF 06/25/2018 JACQUELINE BAR MD Ot 571.8 CHRONIC LIVER DIS NEC 06/25/2018 JACQUELINE BAR MD Ot 790.4 ELEV TRANSAMINASE/LDH 06/25/2018 CARRINGTON CRAWFORD, CHARU R Ot M47.816 SPONDYLOSIS W/O MYELOPATHY OR RADICULOPA 06/26/2018 KARTHIK CANADA APRN Ot E11.9 TYPE 2 DIABETES MELLITUS WITHOUT COMPLIC 06/26/2018 KARTHIK CANADA APRN Ot I10 ESSENTIAL (PRIMARY) HYPERTENSION 06/26/2018 KARTHIK CANADA APRN Ot J44.9 CHRONIC OBSTRUCTIVE PULMONARY DISEASE, U 06/26/2018 KARTHIK CANADA APRN Ot K21.9 GASTRO-ESOPHAGEAL REFLUX DISEASE WITHOUT 06/26/2018 KARTHIK CANADA APRN Ot N40.1 BENIGN PROSTATIC HYPERPLASIA WITH LOWER 06/26/2018 KARTHIK CANADA APRN Ot R11.2 NAUSEA WITH VOMITING, UNSPECIFIED 06/26/2018 KARTHIK CANADA APRN Ot Z79.82 ALF (CURRENT) USE OF ASPIRIN 06/26/2018 KARTHIK CANADA APRN Ot Z87.19 PERSONAL HISTORY OF OTHER DISEASES OF 11/04/2018 JACQUELINE BAR MD Ot 571.8 CHRONIC LIVER DIS NEC 11/04/2018 JACQUELINE BAR MD Ot 790.4 ELEV TRANSAMINASE/LDH 11/04/2018 CARRINGTON CRAWFORD, CHARU Gurrola Ot M47.816 SPONDYLOSIS W/O MYELOPATHY OR RADICULOPA Procedures There is no data. Results Test Result Range CBC With Differential/Platelet - 09/28/16 08:21 WBC 9.5 x10E3/uL 3.4-10.8 RBC 5.56 x10E6/uL 4.14-5.80 Hemoglobin 17.1 g/dL 12.6-17.7 Hematocrit 50.1 % 37.5-51.0 MCV 90 fL 79-97 MCH 30.8 pg 26.6-33.0 MCHC 34.1 g/dL 31.5-35.7 RDW 13.9 % 12.3-15.4 Platelets 187 x10E3/uL 150-379 Neutrophils 60 % Lymphs 25 % Monocytes 8 % Eos 5 % Basos 1 % Neutrophils (Absolute) 5.7 x10E3/uL 1.4-7.0 Lymphs (Absolute) 2.4 x10E3/uL 0.7-3.1 Monocytes(Absolute) 0.8 x10E3/uL 0.1-0.9 Eos (Absolute) 0.5 x10E3/uL 0.0-0.4 Baso (Absolute) 0.1 x10E3/uL 0.0-0.2 Immature Granulocytes 1 % Immature Grans (Abs) 0.1 x10E3/uL 0.0-0.1 Comp. Metabolic Panel (14) - 09/28/16 08:21 Glucose, Serum 117 mg/dL 65-99 BUN 14 mg/dL 6-24 Creatinine, Serum 0.94 mg/dL 0.76-1.27 eGFR If NonAfricn Am 88 mL/min/1.73 >59 eGFR If Africn Am 102 mL/min/1.73 >59 BUN/Creatinine Ratio 15 9-20 Sodium, Serum 139 mmol/L 134-144 Potassium, Serum 4.0 mmol/L 3.5-5.2 Chloride, Serum 96 mmol/L 96-106 Carbon Dioxide, Total 26 mmol/L 18-29 Calcium, Serum 11.5 mg/dL 8.7-10.2 Protein, Total, Serum 7.7 g/dL 6.0-8.5 Albumin, Serum 4.4 g/dL 3.5-5.5 Globulin, Total 3.3 g/dL 1.5-4.5 A/G Ratio 1.3 1.1-2.5 Bilirubin, Total 0.5 mg/dL 0.0-1.2 Alkaline Phosphatase, S 92 IU/L 39-117 AST (SGOT) 92 IU/L 0-40 ALT (SGPT) 121 IU/L 0-44 Lipid Panel - 09/28/16 08:21 Cholesterol, Total 106 mg/dL 100-199 Triglycerides 85 mg/dL 0-149 HDL Cholesterol 41 mg/dL >39 VLDL Cholesterol Gennaro 17 mg/dL 5-40 LDL Cholesterol Calc 48 mg/dL 0-99 Hepatitis Panel (4) - 09/28/16 08:21 HBsAg Screen Negative Negative Hep A Ab, IgM Positive Negative Hep B Core Ab, IgM Negative Negative Hep C Virus Ab <0.1 s/co ratio 0.0-0.9 Hepatitis Panel (4) - 04/26/17 16:01 HBsAg Screen Negative Negative Hep A Ab, IgM Positive Negative Hep B Core Ab, IgM Negative Negative Hep C Virus Ab <0.1 s/co ratio 0.0-0.9 Written Authorization - 04/26/17 16:01 Written Authorization Comment CBC With Differential/Platelet - 04/26/17 16:01 WBC 9.6 x10E3/uL 3.4-10.8 RBC 5.78 x10E6/uL 4.14-5.80 Hemoglobin 17.7 g/dL 12.6-17.7 Hematocrit 52.2 % 37.5-51.0 MCV 90 fL 79-97 MCH 30.6 pg 26.6-33.0 MCHC 33.9 g/dL 31.5-35.7 RDW 13.2 % 12.3-15.4 Platelets 208 x10E3/uL 150-379 Neutrophils 51 % Lymphs 34 % Monocytes 8 % Eos 6 % Basos 1 % Neutrophils (Absolute) 4.8 x10E3/uL 1.4-7.0 Lymphs (Absolute) 3.3 x10E3/uL 0.7-3.1 Monocytes(Absolute) 0.8 x10E3/uL 0.1-0.9 Eos (Absolute) 0.6 x10E3/uL 0.0-0.4 Baso (Absolute) 0.1 x10E3/uL 0.0-0.2 Immature Granulocytes 0 % Immature Grans (Abs) 0.0 x10E3/uL 0.0-0.1 Comp. Metabolic Panel (14) - 04/26/17 16:01 Glucose, Serum 402 mg/dL 65-99 BUN 17 mg/dL 6-24 Creatinine, Serum 1.08 mg/dL 0.76-1.27 eGFR If NonAfricn Am 75 mL/min/1.73 >59 eGFR If Africn Am 86 mL/min/1.73 >59 BUN/Creatinine Ratio 16 9-20 Sodium, Serum 134 mmol/L 134-144 Potassium, Serum 3.9 mmol/L 3.5-5.2 Chloride, Serum 86 mmol/L 96-106 Carbon Dioxide, Total 26 mmol/L 18-29 Calcium, Serum 12.4 mg/dL 8.7-10.2 Protein, Total, Serum 8.0 g/dL 6.0-8.5 Albumin, Serum 4.9 g/dL 3.5-5.5 Globulin, Total 3.1 g/dL 1.5-4.5 A/G Ratio 1.6 1.2-2.2 Bilirubin, Total 0.4 mg/dL 0.0-1.2 Alkaline Phosphatase, S 147 IU/L 39-117 AST (SGOT) 54 IU/L 0-40 ALT (SGPT) 111 IU/L 0-44 Lipid Panel - 04/26/17 16:01 Cholesterol, Total 126 mg/dL 100-199 Triglycerides 197 mg/dL 0-149 HDL Cholesterol 43 mg/dL >39 VLDL Cholesterol Gennaro 39 mg/dL 5-40 LDL Cholesterol Calc 44 mg/dL 0-99 Complete blood count (CBC) with automated white blood cell (WBC) differential - 06/09/17 15:05 Blood leukocytes automated count (number/volume) 9.9 10*3/uL 4.3-11.0 Blood erythrocytes automated count (number/volume) 5.62 10*6/uL 4.35-5.85 Venous blood hemoglobin measurement (mass/volume) 16.8 g/dL 13.3-17.7 Blood hematocrit (volume fraction) 49 % 40-54 Automated erythrocyte mean corpuscular volume 88 [foz_us] 80-99 Automated erythrocyte mean corpuscular hemoglobin (mass per erythrocyte) 30 pg 25-34 Automated erythrocyte mean corpuscular hemoglobin concentration measurement ( mass/volume) 34 g/dL 32-36 Automated erythrocyte distribution width ratio 13.5 % 10.0-14.5 Automated blood platelet count (count/volume) 192 10*3/uL 130-400 Automated blood platelet mean volume measurement 10.4 [foz_us] 7.4-10.4 Automated blood neutrophils/100 leukocytes 81 % 42-75 Automated blood lymphocytes/100 leukocytes 13 % 12-44 Blood monocytes/100 leukocytes 5 % 0-12 Automated blood eosinophils/100 leukocytes 0 % 0-10 Automated blood basophils/100 leukocytes 0 % 0-10 Blood neutrophils automated count (number/volume) 8.0 10*3 1.8-7.8 Blood lymphocytes automated count (number/volume) 1.3 10*3 1.0-4.0 Blood monocytes automated count (number/volume) 0.5 10*3 0.0-1.0 Automated eosinophil count 0.0 10*3/uL 0.0-0.3 Automated blood basophil count (count/volume) 0.0 10*3/uL 0.0-0.1 Comprehensive metabolic panel - 06/09/17 15:05 Serum or plasma sodium measurement (moles/volume) 139 mmol/L 135-145 Serum or plasma potassium measurement (moles/volume) 3.5 mmol/L 3.6-5.0 Serum or plasma chloride measurement (moles/volume) 100 mmol/L 98-107 Carbon dioxide 26 mmol/L 21-32 Serum or plasma anion gap determination (moles/volume) 13 mmol/L 5-14 Serum or plasma urea nitrogen measurement (mass/volume) 14 mg/dL 7-18 Serum or plasma creatinine measurement (mass/volume) 0.95 mg/dL 0.60-1.30 Serum or plasma urea nitrogen/creatinine mass ratio 15 NRG Serum or plasma creatinine measurement with calculation of estimated glomerular filtration rate > NRG Serum or plasma glucose measurement (mass/volume) 141 mg/dL 70-105 Serum or plasma calcium measurement (mass/volume) 11.3 mg/dL 8.5-10.1 Serum or plasma total bilirubin measurement (mass/volume) 0.6 mg/dL 0.1-1.0 Serum or plasma alkaline phosphatase measurement (enzymatic activity/volume) 66 U/L 40-136 Serum or plasma aspartate aminotransferase measurement (enzymatic activity/ volume) 51 U/L 5-34 Serum or plasma alanine aminotransferase measurement (enzymatic activity/volume ) 99 U/L 0-55 Serum or plasma protein measurement (mass/volume) 7.9 g/dL 6.4-8.2 Serum or plasma albumin measurement (mass/volume) 4.5 g/dL 3.2-4.5 CBC - 10/15/17 14:07 WHITE BLOOD CELL COUNT 10.7 Thousand/uL 3.8-10.8 RED BLOOD CELL COUNT 6.09 Million/uL 4.20-5.80 HEMOGLOBIN 17.6 g/dL 13.2-17.1 HEMATOCRIT 53.8 % 38.5-50.0 MCV 88.3 fL 80.0-100.0 MCH 28.9 pg 27.0-33.0 MCHC 32.7 g/dL 32.0-36.0 RDW 13.8 % 11.0-15.0 PLATELET COUNT 214 Thousand/uL 140-400 MPV 10.9 fL 7.5-12.5 ABSOLUTE NEUTROPHILS 6720 cells/uL 7094-2994 ABSOLUTE LYMPHOCYTES 2322 cells/uL 850-3900 ABSOLUTE MONOCYTES 792 cells/uL 200-950 ABSOLUTE EOSINOPHILS 717 cells/uL 15-500 ABSOLUTE BASOPHILS 150 cells/uL 0-200 NEUTROPHILS 62.8 % NRG LYMPHOCYTES 21.7 % NRG MONOCYTES 7.4 % NRG EOSINOPHILS 6.7 % NRG BASOPHILS 1.4 % NRG Complete blood count (CBC) with automated white blood cell (WBC) differential - 03/19/18 17:45 Blood leukocytes automated count (number/volume) 9.7 10*3/uL 4.3-11.0 Blood erythrocytes automated count (number/volume) 5.78 10*6/uL 4.35-5.85 Venous blood hemoglobin measurement (mass/volume) 18.0 g/dL 13.3-17.7 Blood hematocrit (volume fraction) 50 % 40-54 Automated erythrocyte mean corpuscular volume 87 [foz_us] 80-99 Automated erythrocyte mean corpuscular hemoglobin (mass per erythrocyte) 31 pg 25-34 Automated erythrocyte mean corpuscular hemoglobin concentration measurement ( mass/volume) 36 g/dL 32-36 Automated erythrocyte distribution width ratio 13.6 % 10.0-14.5 Automated blood platelet count (count/volume) 205 10*3/uL 130-400 Automated blood platelet mean volume measurement 10.9 [foz_us] 7.4-10.4 Automated blood neutrophils/100 leukocytes 86 % 42-75 Automated blood lymphocytes/100 leukocytes 10 % 12-44 Blood monocytes/100 leukocytes 4 % 0-12 Automated blood eosinophils/100 leukocytes 0 % 0-10 Automated blood basophils/100 leukocytes 0 % 0-10 Blood neutrophils automated count (number/volume) 8.3 10*3 1.8-7.8 Blood lymphocytes automated count (number/volume) 1.0 10*3 1.0-4.0 Blood monocytes automated count (number/volume) 0.3 10*3 0.0-1.0 Automated eosinophil count 0.0 10*3/uL 0.0-0.3 Automated blood basophil count (count/volume) 0.0 10*3/uL 0.0-0.1 Comprehensive metabolic panel - 03/19/18 17:45 Serum or plasma sodium measurement (moles/volume) 139 mmol/L 135-145 Serum or plasma potassium measurement (moles/volume) 3.3 mmol/L 3.6-5.0 Serum or plasma chloride measurement (moles/volume) 100 mmol/L 98-107 Carbon dioxide 25 mmol/L 21-32 Serum or plasma anion gap determination (moles/volume) 14 mmol/L 5-14 Serum or plasma urea nitrogen measurement (mass/volume) 16 mg/dL 7-18 Serum or plasma creatinine measurement (mass/volume) 1.06 mg/dL 0.60-1.30 Serum or plasma urea nitrogen/creatinine mass ratio 15 NRG Serum or plasma creatinine measurement with calculation of estimated glomerular filtration rate > NRG Serum or plasma glucose measurement (mass/volume) 132 mg/dL 70-105 Serum or plasma calcium measurement (mass/volume) 11.8 mg/dL 8.5-10.1 Serum or plasma total bilirubin measurement (mass/volume) 0.5 mg/dL 0.1-1.0 Serum or plasma alkaline phosphatase measurement (enzymatic activity/volume) 49 U/L 40-136 Serum or plasma aspartate aminotransferase measurement (enzymatic activity/ volume) 38 U/L 5-34 Serum or plasma alanine aminotransferase measurement (enzymatic activity/volume ) 75 U/L 0-55 Serum or plasma protein measurement (mass/volume) 8.2 g/dL 6.4-8.2 Serum or plasma albumin measurement (mass/volume) 4.6 g/dL 3.2-4.5 Lipase - 03/19/18 17:45 Lipase 29 U/L 8-78 Complete urinalysis with reflex to culture - 03/19/18 19:30 Urine color determination YELLOW NRG Urine clarity determination CLEAR NRG Urine pH measurement by test strip 5 5-9 Specific gravity of urine by test strip 1.010 1.016- 1.022 Urine protein assay by test strip, semi-quantitative 3+ NEGATIVE Urine glucose detection by automated test strip NEGATIVE NEGATIVE Erythrocytes detection in urine sediment by light microscopy 1+ NEGATIVE Urine ketones detection by automated test strip 3+ NEGATIVE Urine nitrite detection by test strip NEGATIVE NEGATIVE Urine total bilirubin detection by test strip NEGATIVE NEGATIVE Urine urobilinogen measurement by automated test strip (mass/volume) 1 mg/dL NORMAL Urine leukocyte esterase detection by dipstick NEGATIVE NEGATIVE Automated urine sediment erythrocyte count by microscopy (number/high power field) [HPF] NRG Automated urine sediment leukocyte count by microscopy (number/high power field ) RARE NRG Bacteria detection in urine sediment by light microscopy NONE NRG Squamous epithelial cells detection in urine sediment by light microscopy RARE NRG Crystals detection in urine sediment by light microscopy NONE NRG Casts detection in urine sediment by light microscopy NONE NRG Mucus detection in urine sediment by light microscopy NEGATIVE NRG Complete urinalysis with reflex to culture NO NRG CBC - 08/19/18 11:17 WHITE BLOOD CELL COUNT 9.9 Thousand/uL 3.8-10.8 RED BLOOD CELL COUNT 4.55 Million/uL 4.20-5.80 HEMOGLOBIN 13.8 g/dL 13.2-17.1 HEMATOCRIT 40.4 % 38.5-50.0 MCV 88.8 fL 80.0-100.0 MCH 30.3 pg 27.0-33.0 MCHC 34.2 g/dL 32.0-36.0 RDW 13.1 % 11.0-15.0 PLATELET COUNT 229 Thousand/uL 140-400 MPV 12.1 fL 7.5-12.5 ABSOLUTE NEUTROPHILS 6326 cells/uL 9025-4146 ABSOLUTE LYMPHOCYTES 2336 cells/uL 850-3900 ABSOLUTE MONOCYTES 624 cells/uL 200-950 ABSOLUTE EOSINOPHILS 515 cells/uL 15-500 ABSOLUTE BASOPHILS 99 cells/uL 0-200 NEUTROPHILS 63.9 % NRG LYMPHOCYTES 23.6 % NRG MONOCYTES 6.3 % NRG EOSINOPHILS 5.2 % NRG BASOPHILS 1.0 % NRG PSA (FREE AND TOTAL) - 08/19/18 11:17 PSA, TOTAL 0.5 ng/mL < OR=4.0 PSA, FREE 0.1 ng/mL NRG PSA, % FREE 20 % (calc) >25 Encounters ACCT No. Visit Date/Time Discharge Status Pt. Type Provider Facility Loc./Unit Complaint [id number] 03/19/2018 17:18:00 03/19/2018 20:55:00 DIS Emergency KARTHIK CANADA PHOTOGRAMMETRIC ENGINEER [facility] ER VOMITING [id number] 11/05/2017 09:49:00 11/05/2017 23:59:59 CLS Outpatient CARRINGTON CRAWFORD, CHARU Gurrola [facility] RAD DDU [id number] 06/09/2017 14:37:00 06/09/2017 17:30:00 DIS Emergency KYRIE CRAWFORD, LORENA Mann [facility] ER VOMITING [id number] 06/17/2015 07:53:00 06/17/2015 23:59:59 CLS Outpatient JACQUELINE BAR MD [facility] RAD ELEVATED LIVER ENZYMES [id number] 05/28/2015 11:30:00 05/29/2015 10:49:00 DIS Outpatient MARY ANN CRAWFORD FACC, ALIZA AU CCDS [facility] CATH CHEST PAIN [id number] 11/22/2018 12:09:00 ACT Inpatient JACQUELINE BAR MD [facility] ICU GI BLEED [id number] 09/29/2016 13:05:00 Document Registration [id number] 05/01/2017 07:05:00 Document Registration [id number] 11/07/2018 09:30:00 11/07/2018 23:59:59 C[facility] [id number] 08/19/2018 10:20:00 Document Registration [id number] 10/15/2017 13:20:00 Document Registration [id number] 04/27/2017 07:06:00 Document Registration
[2018-11-22] MEDS: PANTOPRAZOLE 40 MG (PROTONIX) VIAL IV SCH (22:29)
[2018-11-22] MEDS: PIPERACILLIN/TAZO 4.5 GM/NS 100 ML IV SCH ×2 (22:30)
--- NOTE | 2018-11-22 22:50 | OPERATIVE REPORT ---
DATE OF SERVICE: 11/22/2018 PREOPERATIVE DIAGNOSES: Anemia, GI bleed, syncopal episodes and hematemesis. POSTOPERATIVE DIAGNOSES: Anemia, GI bleed, syncopal episodes and hematemesis. PROCEDURE: Right IJ ultrasound-guided central line placement. SURGEON: Elena Reyes DO ANESTHESIA: 1% local 5 mL. ESTIMATED BLOOD LOSS: Minimal. COMPLICATIONS: None. INDICATIONS: The patient is a 63-year-old male with need for central line placement. He understands risks and benefits and wishes to proceed. Using ultrasound guidance, the right internal jugular vein was located after he was prepped and draped. Local anesthetic was infiltrated into the area and the right internal jugular vein was then accessed under guidance of the ultrasound. Dark nonpulsatile blood was withdrawn. The guidewire was inserted through the needle and the needle was removed. A #11 blade scalpel was used to make a skin incision at the insertion point. A dilator was then advanced over the wire and removed. The triple lumen catheter was then inserted over the wire and the wire was removed. The catheter was then secured with 3-0 silk suture. All ports were accessed and flushed without difficulty. The area was then washed and dried and sterile bandage was applied. The patient tolerated procedure well without any complications. Chest x-ray pending. Job ID: [id number] DocumentID: [id number] Dictated Date: 11/22/2018 16:16:18 Squeak Rattle And Leak Repairer Date: 11/22/2018 22:49:30 Dictated By: ELENA REYES DO
[2018-11-23] VITALS (23 sets, daily range): BP systolic 100–147; BP diastolic 62–81
[2018-11-23] MEDS: NS IV 1000 ML 1,000 ML IV SCH ×4 (00:55→20:55)
[2018-11-23] MEDS: METOCLOPRAMIDE 10 MG (REGLAN) TAB PO SCH ×4 (01:48→20:55)
[2018-11-23] MEDS: PIPERACILLIN/TAZO 4.5 GM/NS 100 ML IV SCH ×6 (06:01→23:32)
[2018-11-23 06:05] LABS: BASOPHILS % (AUTO) 0 % (0-10); EOSINOPHILS % (AUTO) 0 % (0-10); HEMATOCRIT 23 % (40-54); HEMOGLOBIN 7.4 G/DL (13.3-17.7); LYMPHOCYTES % (AUTO) 16 % (12-44); MEAN CORPUSCULAR HEMOGLOBIN 27 PG (25-34); MEAN CORPUSCULAR HGB CONC 32 G/DL (32-36); MEAN CORPUSCULAR VOLUME 84 FL (80-99); MEAN PLATELET VOLUME 10.8 FL (7.4-10.4); MONOCYTES # (AUTO) 1.5 X 10^3 (0.0-1.0); MONOCYTES % (AUTO) 12 % (0-12); NEUTROPHILS # (AUTO) 8.6 X 10^3 (1.8-7.8); NEUTROPHILS % (AUTO) 71 % (42-75); PLATELET COUNT 184 10^3/uL (130-400); RED CELL DISTRIBUTION WIDTH 14.8 % (10.0-14.5); WHITE BLOOD COUNT 12.1 10^3/uL (4.3-11.0)
[2018-11-23 06:29] LABS: ALBUMIN 3.2 GM/DL (3.2-4.5); BILIRUBIN,TOTAL 0.5 MG/DL (0.1-1.0); CALCIUM 9.1 MG/DL (8.5-10.1); CREATININE SERUM 1.22 MG/DL (0.60-1.30); POTASSIUM 2.9 MMOL/L (3.6-5.0); TOTAL PROTEIN 5.3 GM/DL (6.4-8.2)
--- NOTE | 2018-11-23 08:23 | History & Physicial ([facility]) ---
HPI History of Present Illness: 63 yo male reports he was vomiting blood x 3 days and then yesterday when he was trying to have a bowel movement, he stood up from the toilet and blacked out , does not recall anything after. He does know he hit his head on the door frame. He reportedly has history of hepatitis C, but denies have trouble with liver or bleeding in past. Chart review from clinic notes history of positive IgM for Hep A, but no positive Hep C testing although he has had elevated LFTs since 2014. Source: patient Exam Limitations: other (speech somewhat difficult to understand) Date seen by provider: Nov 23, 2018 Time Seen by Provider: 06:30 Attending Physician Jacqueline Burris MD PCP Christiane Delgado MD Consult Date of Admission Nov 22, 2018 at 12:09 Home Medications Home Medications Reviewed patient Home Medication Reconciliation performed by pharmacy medication reconciliations freezer laboratory technician and/or nursing. Patients Allergies have been reviewed. Allergies Coded Allergies: No Known Drug Allergies (Unverified , 05/28/15) [id number] Hx Patient Social History Alcohol Use: Past History Recreational Drug Use: Yes Smoking Status: Never a Smoker Former smoker/When Quit: Oct 14, 2009 2nd Hand Smoke Exposure: No Recent Foreign Travel: No Contact w/other who traveled: No Recent Hopitalizations: No Recent Infectious Disease Expo: No Physical Abuse Screen: No Sexual Abuse: No Past Medical History PMHx: CAD DMII HTN GERD Cleft palate Inguinal hernia PSurgHx: PSurgHx: Oral surgeries for cleft lip/palate Heart cath Family Medical History Significant Family History: No Pertinent Family Hx, Heart Disease, Cancer, CAD Under 55 Years Old Family History: Cardiovascular disease 19 FATHER Cerebral embolism G8 BROTHER Lung cancer 19 FATHER Myocardial infarction G8 BROTHER, Onset:50's - 60 G8 BROTHER, Onset:50's - 60 Review of Systems ([facility]) Constitutional: No fever EENTM: no symptoms reported Respiratory: no symptoms reported Cardiovascular: no symptoms reported Gastrointestinal: see HPI; No abdominal pain; vomiting Genitourinary: no symptoms reported Musculoskeletal: no symptoms reported Skin: no symptoms reported Psychiatric/Neurological: No Symptoms Reported Reviewed Test Results Reviewed Test Results Lab Laboratory Tests Test 11/22/18 11:26 11/22/18 13:01 11/22/18 15:30 11/22/18 15:53 Range/Units White Blood Count 25.9 H 4.3-11.0 10^3/uL Red Blood Count 2.62 L 4.35-5.85 10^6/uL Hemoglobin 6.9 *L 13.3-17.7 G/DL Hematocrit 22 L 40-54 % Mean Corpuscular Volume 82 80-99 FL Mean Corpuscular Hemoglobin 26 25-34 PG Mean Corpuscular Hemoglobin Concent 32 32-36 G/DL Red Cell Distribution Width 15.2 H 10.0-14.5 % Platelet Count 354 130-400 10^3/uL Mean Platelet Volume 11.5 H 7.4-10.4 FL Neutrophils (%) (Auto) 76 H 42-75 % Lymphocytes (%) (Auto) 14 12-44 % Monocytes (%) (Auto) 10 0-12 % Eosinophils (%) (Auto) 0 0-10 % Basophils (%) (Auto) 0 0-10 % Neutrophils # (Auto) 19.6 H 1.8-7.8 X 10^3 Lymphocytes # (Auto) 3.7 1.0-4.0 X 10^3 Monocytes # (Auto) 2.6 H 0.0-1.0 X 10^3 Eosinophils # (Auto) 0.0 0.0-0.3 10^3/uL Basophils # (Auto) 0.0 0.0-0.1 10^3/uL Neutrophils % (Manual) 79 % Lymphocytes % (Manual) 8 % Monocytes % (Manual) 6 % Eosinophils % (Manual) 5 % Band Neutrophils 2 % Nucleated Red Blood Cells 1 Toxic Granulation 1+ Polychromasia SLIGHT Hypochromasia SLIGHT Blood Morphology Comment NORMAL Prothrombin Time 16.6 H 12.2-14.7 SEC INR Comment 1.3 0.8-1.4 Activated Partial Thromboplast Time 24 24-35 SEC Sodium Level 140 135-145 MMOL/L Potassium Level 3.2 L 3.6-5.0 MMOL/L Chloride Level 97 L 98-107 MMOL/L Carbon Dioxide Level 26 21-32 MMOL/L Anion Gap 17 H 5-14 MMOL/L Blood Urea Nitrogen 81 H 7-18 MG/DL Creatinine 1.58 H 0.60-1.30 MG/DL Estimat Glomerular Filtration Rate 45 BUN/Creatinine Ratio 51 Glucose Level 174 H 70-105 MG/DL Calcium Level 10.5 H 8.5-10.1 MG/DL Corrected Calcium 10.6 H 8.5-10.1 MG/DL Total Bilirubin 0.3 0.1-1.0 MG/DL Aspartate Amino Transf (AST/SGOT) 25 5-34 U/L Alanine Aminotransferase (ALT/SGPT) 17 0-55 U/L Alkaline Phosphatase 28 L 40-136 U/L Troponin I 0.126 <0.028 NG/ML Total Protein 6.2 L 6.4-8.2 GM/DL Albumin 3.9 3.2-4.5 GM/DL Lipase 24 8-78 U/L Lactic Acid Level 3.06 *H 2.70 *H 0.50-2.00 MMOL/L Urine Color YELLOW Urine Clarity CLEAR Urine pH 5 5-9 Urine Specific [place] 1.015 L 1.016-1.022 Urine Protein NEGATIVE NEGATIVE Urine Glucose (UA) NEGATIVE NEGATIVE Urine Ketones NEGATIVE NEGATIVE Urine Nitrite NEGATIVE NEGATIVE Urine Bilirubin NEGATIVE NEGATIVE Urine Urobilinogen NORMAL NORMAL MG/DL Urine Leukocyte Esterase NEGATIVE NEGATIVE Urine RBC (Auto) NEGATIVE NEGATIVE Urine RBC NONE /HPF Urine WBC NONE /HPF Urine Squamous Epithelial Cells 0-2 /HPF Urine Crystals NONE /LPF Urine Bacteria NEGATIVE /HPF Urine Casts NONE /LPF Urine Hyaline Casts RARE /LPF Urine Mucus NEGATIVE /LPF Urine Culture Indicated NO Test 11/22/18 16:40 11/22/18 20:50 11/23/18 05:54 Range/Units Troponin I 0.109 <0.028 NG/ML Hemoglobin 8.0 L 7.4 L 13.3-17.7 G/DL Hematocrit 25 L 23 L 40-54 % White Blood Count 12.1 H 4.3-11.0 10^3/uL Red Blood Count 2.76 L 4.35-5.85 10^6/uL Mean Corpuscular Volume 84 80-99 FL Mean Corpuscular Hemoglobin 27 25-34 PG Mean Corpuscular Hemoglobin Concent 32 32-36 G/DL Red Cell Distribution Width 14.8 H 10.0-14.5 % Platelet Count 184 130-400 10^3/uL Mean Platelet Volume 10.8 H 7.4-10.4 FL Neutrophils (%) (Auto) 71 42-75 % Lymphocytes (%) (Auto) 16 12-44 % Monocytes (%) (Auto) 12 0-12 % Eosinophils (%) (Auto) 0 0-10 % Basophils (%) (Auto) 0 0-10 % Neutrophils # (Auto) 8.6 H 1.8-7.8 X 10^3 Lymphocytes # (Auto) 2.0 1.0-4.0 X 10^3 Monocytes # (Auto) 1.5 H 0.0-1.0 X 10^3 Eosinophils # (Auto) 0.0 0.0-0.3 10^3/uL Basophils # (Auto) 0.0 0.0-0.1 10^3/uL Sodium Level 139 135-145 MMOL/L Potassium Level 2.9 L 3.6-5.0 MMOL/L Chloride Level 100 98-107 MMOL/L Carbon Dioxide Level 30 21-32 MMOL/L Anion Gap 9 5-14 MMOL/L Blood Urea Nitrogen 45 H 7-18 MG/DL Creatinine 1.22 0.60-1.30 MG/DL Estimat Glomerular Filtration Rate 60 BUN/Creatinine Ratio 37 Glucose Level 126 H 70-105 MG/DL Calcium Level 9.1 8.5-10.1 MG/DL Corrected Calcium 9.7 8.5-10.1 MG/DL Total Bilirubin 0.5 0.1-1.0 MG/DL Aspartate Amino Transf (AST/SGOT) 21 5-34 U/L Alanine Aminotransferase (ALT/SGPT) 14 0-55 U/L Alkaline Phosphatase 26 L 40-136 U/L Total Protein 5.3 L 6.4-8.2 GM/DL Albumin 3.2 3.2-4.5 GM/DL Radiology CT head/cervical spine 11/22/18: DRAFT IMPRESSION: Senescent findings of the brain without CT evidence of acute intracranial abnormality. There is a mucous retention cyst or polyp in the right maxillary sinus with polypoid density in the left nasal cavity with adjacent osseous irregularity. This may be chronic and clinical correlation is recommended. Direct visualization of this site is recommended to exclude other underlying pathology. IMPRESSION: Loss of cervical lordosis may be secondary to muscle spasm or position. There are degenerative changes most pronounced at the C5-C6 level without other evidence of acute abnormality in the cervical spine. CT abdomen pelvis 11/22/18- IMPRESSION: 1. No definite evidence of abdominal or pelvic visceral injury. 2. Bilateral inguinal hernias, largest on the left containing multiple bowel loops extending into the scrotal sac. No definite bowel obstruction is seen. CXR 11/22/18- unremarkable Physical Exam-([facility]) Physical Exam Vital Signs VS - Last 72 Hours, by Label 11/22/18 11/22/18 11/22/18 11/22/18 11:12 13:16 13:30 15:00 Temp 96.6 96.6 96.6 96.6 Pulse 125 112 113 114 Resp 20 12 14 20 B/P (MAP) 117/93 (101) 119/77 119/77 96/66 Pulse Ox 99 96 93 96 O2 Delivery Room Air 11/22/18 11/22/18 11/22/18 11/22/18 15:15 15:45 16:00 16:00 Temp 96.6 96.6 96.7 96.7 Pulse 113 112 110 110 Resp 16 18 18 16 B/P (MAP) 140/82 120/90 126/71 (89) 136/71 Pulse Ox 96 95 95 96 11/22/18 11/22/18 11/22/18 11/22/18 16:00 16:37 17:00 18:00 Temp 98.7 98.7 Pulse 116 116 115 110 Resp 16 16 8 9 B/P (MAP) 132/82 (99) 132/82 132/82 (99) Pulse Ox 95 95 94 97 O2 Delivery Room Air Room Air Room Air Room Air 11/22/18 11/22/18 11/22/18 11/22/18 18:13 19:00 19:54 20:00 Temp 97.8 Pulse 109 115 112 Resp 12 21 B/P (MAP) 132/82 141/86 (104) Pulse Ox 94 99 O2 Delivery Room Air Room Air Room Air 11/22/18 11/23/18 11/23/18 11/23/18 20:30 00:00 00:29 01:00 Temp 98.6 98.2 Pulse 114 105 104 Resp 20 20 B/P (MAP) 128/61 100/72 (81) Pulse Ox 95 98 O2 Delivery Room Air Room Air 11/23/18 11/23/18 11/23/18 11/23/18 04:00 07:00 07:00 08:00 Pulse 104 101 98 106 Resp 17 18 21 B/P (MAP) 115/69 (84) 130/78 (95) 147/80 (102) Pulse Ox 97 97 97 O2 Delivery Room Air Room Air Room Air 11/23/18 11/23/18 11/23/18 09:00 09:00 10:00 Pulse 95 105 Resp 20 19 B/P (MAP) 110/68 (82) 121/68 (85) Pulse Ox 94 96 O2 Delivery Room Air Room Air Room Air Capillary Refill : Less Than 3 Seconds General Appearance: no apparent distress Respiratory: lungs clear, normal breath sounds Cardiovascular: regular rate, rhythm, no murmur Gastrointestinal: normal bowel sounds, non tender, soft Extremities: no pedal edema Neurologic/Psychiatric: alert, normal mood/affect, other (speech difficult to understand related to underlying cleft palate) Skin: normal color, warm/dry Assessment/Plan Assessment/Plan Admission Status: Inpatient Order (span 2 midnights) Reason for Inpatient Admission: Suspected active GI bleeding with marked anemia as well as suspected sepsis, need for blood transfusion and close monitoring in ICU with possible need for emergent treatment. (1) Sepsis Status: Acute Assessment & Plan: Unclear etiology- CXR and UA unremarkable, no ascites on CT. Blood cultures pending. Zosyn started. Qualifiers: Qualified Codes: A41.9 - Sepsis, unspecified organism (2) Diabetes mellitus, type 2 Status: Chronic Assessment & Plan: Hold home metformin, sliding scale insulin. Qualifiers: Qualified Codes: E11.65 - Type 2 diabetes mellitus with hyperglycemia (3) GIH (gastrointestinal hemorrhage) Status: Acute Assessment & Plan: Suspected, Surgery consulted. Monitoring H&H. s/p transfusion. Qualifiers: Qualified Codes: K92.0 - Hematemesis (4) Hypertension Status: Chronic Assessment & Plan: Hold home anti-hypertensives due to borderline low BP. Qualifiers: Qualified Codes: I10 - Essential (primary) hypertension (5) Coronary artery disease Status: Chronic Qualifiers: (6) Fatty liver Status: Chronic Assessment & Plan: Noted on US 2014, has had elevated LFTs, no ascites on CT this admission. Reported history of hep C, but no supporting labs found, will check hep panel. (7) DVT prophylaxis Status: Acute Assessment & Plan: No pharmacologic ppx given concern for active bleeding. Clinical Quality Measures DVT/VTE Risk/Contraindication: Risk Factor Score Per Nursin RFS Level Per Nursing on Admit: 4+=Very High JACQUELINE BURRIS MD Nov 23, 2018 08:23
[2018-11-23] MEDS ORDERED: SITA100T12 PO (09:09)
[2018-11-23] MEDS ORDERED: ESOM10SU PO (09:09)
[2018-11-23] MEDS ORDERED: METF-399 PO (09:09)
[2018-11-23] MEDS ORDERED: SUCR1TAB PO (09:09)
[2018-11-23] MEDS ORDERED: VERA120T6 PO (09:09)
[2018-11-23] MEDS: PANTOPRAZOLE 40 MG (PROTONIX) VIAL IV SCH ×2 (09:33→20:55)
--- NOTE | 2018-11-23 12:42 | Progress Note ---
Subjective Date Seen by a Provider: Nov 23, 2018 Time Seen by a Provider: 09:36 Subjective/Events-last exam patient has not had anymore emesis he states. He has been transfused 2 units packed red blood cells hemoglobin slightly decreased. He was on clear liquids but now nothing by mouth. Denies any significant abdominal pain. He aches. Denies any nausea vomiting fever sweats chills shortness or chest pain. Focused Exam Lactate Level 11/22/18 13:01: Lactic Acid Level 3.06*H 11/22/18 15:30: Lactic Acid Level 2.70*H Objective Exam Vital Signs Date Time Temp Pulse Resp B/P (MAP) Pulse Ox O2 Delivery O2 Flow Rate FiO2 11/23/18 10:00 105 19 121/68 (85) 96 Room Air 11/23/18 09:00 95 20 110/68 (82) 94 Room Air 11/23/18 09:00 Room Air 11/23/18 08:00 106 21 147/80 (102) 97 Room Air 11/23/18 07:00 98 18 130/78 (95) 97 Room Air 11/23/18 07:00 101 11/23/18 04:00 104 17 115/69 (84) 97 Room Air 11/23/18 01:00 104 11/23/18 00:29 98.2 11/23/18 00:00 105 20 100/72 (81) 98 Room Air 11/22/18 20:30 98.6 114 20 128/61 95 Room Air 11/22/18 20:00 112 21 141/86 (104) 99 Room Air 11/22/18 19:54 Room Air 11/22/18 19:00 115 11/22/18 18:13 97.8 109 12 132/82 94 Room Air 11/22/18 18:00 110 9 97 Room Air 11/22/18 17:00 115 8 132/82 (99) 94 Room Air 11/22/18 16:37 98.7 116 16 132/82 95 Room Air 11/22/18 16:00 98.7 116 16 132/82 (99) 95 Room Air 11/22/18 16:00 96.7 110 16 136/71 96 11/22/18 16:00 96.7 110 18 126/71 (89) 95 11/22/18 15:45 96.6 112 18 120/90 95 11/22/18 15:15 96.6 113 16 140/82 96 11/22/18 15:00 96.6 114 20 96/66 96 11/22/18 13:30 96.6 113 14 119/77 93 11/22/18 13:16 96.6 112 12 119/77 96 Room Air I & O 11/23/18 07:00 Intake Total 2720 ml Output Total 1200 ml Balance 1520 ml Capillary Refill : Less Than 3 Seconds General Appearance: No Apparent Distress, WD/WN HEENT: PERRL/EOMI Neck: Full Range of Motion, Normal Inspection Respiratory: Chest Non Tender, No Accessory Muscle Use, No Respiratory Distress Cardiovascular: Tachycardia Gastrointestinal: normal bowel sounds, non tender, soft Extremity: Normal Capillary Refill, Normal Inspection Neurologic/Psychiatric: Alert, Oriented x3, No Motor/Sensory Deficits Skin: Normal Color, Warm/Dry Lymphatic: No Adenopathy Results Lab Laboratory Tests 11/22/18 13:01: Lactic Acid Level 3.06*H 11/22/18 15:30: Lactic Acid Level 2.70*H 11/22/18 15:53: Urine Color YELLOW, Urine Clarity CLEAR, Urine pH 5, Urine Specific [place] 1.015L, Urine Protein NEGATIVE, Urine Glucose (UA) NEGATIVE, Urine Ketones NEGATIVE, Urine Nitrite NEGATIVE, Urine Bilirubin NEGATIVE, Urine Urobilinogen NORMAL, Urine Leukocyte Esterase NEGATIVE, Urine RBC (Auto) NEGATIVE, Urine RBC NONE, Urine WBC NONE, Urine Squamous Epithelial Cells 0-2, Urine Crystals NONE, Urine Bacteria NEGATIVE, Urine Casts NONE, Urine Hyaline Casts RARE, Urine Mucus NEGATIVE, Urine Culture Indicated NO 11/22/18 16:40: Troponin I 0.109 11/22/18 20:50: Hemoglobin 8.0L, Hematocrit 25L 11/23/18 05:54: Hemoglobin 7.4L, Hematocrit 23L, White Blood Count 12.1H, Red Blood Count 2.76L , Mean Corpuscular Volume 84, Mean Corpuscular Hemoglobin 27, Mean Corpuscular Hemoglobin Concent 32, Red Cell Distribution Width 14.8H, Platelet Count 184, Mean Platelet Volume 10.8H, Neutrophils (%) (Auto) 71, Lymphocytes (%) (Auto) 16 , Monocytes (%) (Auto) 12, Eosinophils (%) (Auto) 0, Basophils (%) (Auto) 0, Neutrophils # (Auto) 8.6H, Lymphocytes # (Auto) 2.0, Monocytes # (Auto) 1.5H, Eosinophils # (Auto) 0.0, Basophils # (Auto) 0.0, Sodium Level 139, Potassium Level 2.9L, Chloride Level 100, Carbon Dioxide Level 30, Anion Gap 9, Blood Urea Nitrogen 45H, Creatinine 1.22, Estimat Glomerular Filtration Rate 60, BUN/ Creatinine Ratio 37, Glucose Level 126H, Calcium Level 9.1, Corrected Calcium 9.7, Total Bilirubin 0.5, Aspartate Amino Transf (AST/SGOT) 21, Alanine Aminotransferase (ALT/SGPT) 14, Alkaline Phosphatase 26L, Total Protein 5.3L, Albumin 3.2 Assessment/Plan Assessment/Plan Assessment/Plan patient 63-year-old male with hematemesis of coffee-ground appearing vomitus, anemia secondary to GI bleed Epigastric abdominal pain Syncopal episode Hepatitis C Patient placed on Protonix. Patient transfused packed red blood cells made nothing by mouth. Patient if continues to drop will transfuse as needed and may need EGD. Patient understands plan. All questions answered. Clinical Quality Measures DVT/VTE Risk/Contraindication: Risk Factor Score Per Nursin RFS Level Per Nursing on Admit: 4+=Very High ELENA CALL DO Nov 23, 2018 12:42
[2018-11-23 12:45] LABS: HEMOGLOBIN 6.8 G/DL (13.3-17.7)
[2018-11-23] MEDS ORDERED: NS IV 500 ML 500 ML ONE ×2 (13:06→16:23)
[2018-11-23] MEDS: POTASSIUM CL 10MEQ/50ML IVPB 50 ML IV SCH ×3 (14:01→16:10)
[2018-11-23] MEDS: inSUlin ASPART (NovoLOG) 1 UNIT/0.01 ML (CHARGE PER UNIT) SC SCH ×2 (15:49→21:15)
[2018-11-23] MEDS ORDERED: EPINEPHrine INJECTION 1 MG/ML AMP ONE (16:30)
[2018-11-23] MEDS ORDERED: PROPOFOL INJECTION 50 ML IV ONE (17:48)
--- NOTE | 2018-11-23 17:48 | Anesthesia-General Post-Op ---
MAC Patient Condition Mental Status/LOC: Same as Preop Cardiovascular: Satisfactory Nausea/Vomiting: Absent Respiratory: Satisfactory Pain: Controlled Complications: Absent Post Op Complications Complications None Follow Up Care/Instructions Patient Instructions None needed. Anesthesiology Discharge Order Discharge Order Patient is doing well, no complaints, stable vital signs, no apparent adverse anesthesia problems. No complications reported per nursing. DELL SOUSA CRNA Nov 23, 2018 17:48
[2018-11-23] MEDS ORDERED: HURRICAINE EXT TUBE (BENZOCAINE) XX ONE (18:00)
--- NOTE | 2018-11-23 18:47 | Progress Note-Post Operative ---
Post-Operative Progess Note Surgeon (s)/Pick Pulling Machine Operator (s) Surgeon ELENA CALL DO Pick Pulling Machine Operator: na Pre-Operative Diagnosis hematemesis Post-Operative Diagnosis severe gastritis Procedure & Operative Findings Date of Procedure 11/23/18 Procedure Performed/Findings egd c biopsy antrum Anesthesia Type per retail sales specialist Estimated Blood Loss Estimated blood loss (mL): none Specimens/Packing Specimens Removed antrum ELENA CALL DO Nov 23, 2018 18:47
[2018-11-24] VITALS (16 sets, daily range): BP systolic 123–169; BP diastolic 76–95
--- NOTE | 2018-11-24 01:29 | NUR ---
2347-PT RESTING IN BED, EYES CLOSED, O2 SAT 86% THIS RN WOKE PT & PLACED HIM ON O2 @ 2L NC PT O2 SAT PROMPTLY RETURNS TO 94% 235--PT RESTING IN BED, EYES CLOSED, O2 SAT 73%, O2 INCREASED TO 3L, PT IN SEMI FOWLERS-O2 SAT RETURNED TO 93% PROMPTLY 235-PT RESTING IN BED, EYES CLOSED, O2 SAT 68%, O2 INCREASED TO 4L, THIS RN WOKE PT & ENCOURAGED HIM TO TAKE SOME DEEP BREATHES, PT IN HIGH FOWLERS- PT O2 SAT RETURNED TO 94% 0039-PT RESTING IN BED EYES CLOSED-PT IN HIGH FOWLERS POSITION-O2 SAT 57%-50%-THIS RN TURNED O2 UP 10 L NC ENCOURAGED PT TO DEEP BREATHES-SATURATION RETURNED TO 92% PROMPTLY 0041-O2 TURNED DOWN TO 5L NC-PT SAT 97% 0044- THIS RN CALLED DR. BAR TO INFORM HER OF EVENTS THAT HAVE OCCURRED WITH THIS PT THIS RN RECEIVED NEW ORDERS 0046-THIS RN CONTACTED [facility] IN RT-TO PLACE PT ON CPAP-[facility] NOTIFIED OF CXR ORDER 0110-PT PLACED ON CPAP-PRESSURE OF 10 AT 30%-PT TOLERATING WELL-PT AGREES TO TREATMENT PLAN & DENIES ANY QUESTIONS OR CONCERNS AT THIS TIME
--- NOTE | 2018-11-24 03:24 | OPERATIVE REPORT ---
DATE OF SERVICE: 11/23/2018 PREOPERATIVE DIAGNOSIS: Hematemesis. POSTOPERATIVE DIAGNOSIS: Severe gastritis. PROCEDURE: EGD with biopsy of the antrum. SURGEON: Elena Reyes DO ANESTHESIA: Per RETAIL REPRESENTATIVE. ESTIMATED BLOOD LOSS: None. COMPLICATIONS: None. INDICATIONS: The patient is a 63-year-old male who presents to the hospital with hematemesis. He has been anemic and has received blood transfusions. The patient did have a drop in hemoglobin. He understands risks and benefits of procedure and wished to proceed with procedure. Consent was signed in the chart. PROCEDURE: The patient was taken to the OR, was maintained in the intensive care unit. He was placed in left lateral recumbent position. Timeout was performed. Once anesthetic effect took place the scope was inserted in mouth, down the esophagus, stomach and into the duodenum without difficulty. There were no polyps, masses or ulcerations or bleeding within the duodenum. Scope was slowly retracted back to the stomach where it was further insufflated. Severe gastritis was present. There is no active bleeding present at this time. Biopsy of the antrum was obtained. Scope was retroflexed noting no other pathology. No polyps, mass or ulcerations. The scope was slowly retracted back to normal position and then slowly retracted back to the distal esophagus, which had normal appearance. Scope was slowly retracted back to completely remove, noting no other pathology. RECOMMENDATIONS: The patient to continue on current medical regimen. We will keep him n.p.o. for now and follow hemoglobin. If he continues to have a significant blood loss we would proceed with colonoscopy. Job ID: [id number] DocumentID: [id number] Dictated Date: 11/23/2018 18:45:38 Critical Power Install Technician Date: 11/24/2018 03:24:18 Dictated By: ELENA REYES DO
[2018-11-24] MEDS ORDERED: RT-ALBUTEROL/IPRATROPIUM 3 ML (DUONEB) VIAL INH PRN (03:30)
[2018-11-24 05:14] LABS: BASOPHILS % (AUTO) 1 % (0-10); EOSINOPHILS # (AUTO) 0.1 10^3/uL (0.0-0.3); EOSINOPHILS % (AUTO) 1 % (0-10); HEMATOCRIT 25 % (40-54); HEMOGLOBIN 8.1 G/DL (13.3-17.7); LYMPHOCYTES # (AUTO) 1.8 X 10^3 (1.0-4.0); LYMPHOCYTES % (AUTO) 24 % (12-44); MEAN CORPUSCULAR HEMOGLOBIN 27 PG (25-34); MEAN CORPUSCULAR HGB CONC 32 G/DL (32-36); MEAN CORPUSCULAR VOLUME 84 FL (80-99); MEAN PLATELET VOLUME 10.6 FL (7.4-10.4); MONOCYTES # (AUTO) 0.8 X 10^3 (0.0-1.0); MONOCYTES % (AUTO) 10 % (0-12); NEUTROPHILS # (AUTO) 4.9 X 10^3 (1.8-7.8); NEUTROPHILS % (AUTO) 65 % (42-75); PLATELET COUNT 133 10^3/uL (130-400); RED CELL DISTRIBUTION WIDTH 15.7 % (10.0-14.5); WHITE BLOOD COUNT 7.6 10^3/uL (4.3-11.0)
--- NOTE | 2018-11-24 05:26 | Diagnostic Imaging Report ---
INDICATION: Low oxygen saturation COMPARISON: 12/02/2018 FINDINGS: Single frontal view of the chest demonstrates normal heart size and pulmonary vascularity. The lungs are well aerated and clear. No large pleural effusion or pneumothorax is seen. The visualized osseous structures show no acute abnormalities. Right internal jugular central venous catheter is again identified with tip in the high SVC near the junction of the innominate veins. IMPRESSION: 1. No acute cardiopulmonary process. Dictated by: Dictated on workstation # [id number]
[2018-11-24 05:33] LABS: ALANINE AMINOTRANSFERASE 14 U/L (0-55); ALBUMIN 3.1 GM/DL (3.2-4.5); ALKALINE PHOSPHATASE 29 U/L (40-136); BILIRUBIN,TOTAL 0.5 MG/DL (0.1-1.0); BUN/CREATININE RATIO 20; CALCIUM 8.9 MG/DL (8.5-10.1); CARBON DIOXIDE 27 MMOL/L (21-32); CHLORIDE 108 MMOL/L (98-107); CREATININE SERUM 0.85 MG/DL (0.60-1.30); GFR ESTIMATED > 60; GLUCOSE 105 MG/DL (70-105); PHOSPHORUS 1.4 MG/DL (2.3-4.7); POTASSIUM 3.3 MMOL/L (3.6-5.0); SODIUM 143 MMOL/L (135-145); TOTAL PROTEIN 4.9 GM/DL (6.4-8.2)
[2018-11-24] MEDS: NS IV 1000 ML 1,000 ML IV SCH ×3 (05:48→22:51)
[2018-11-24] MEDS: inSUlin ASPART (NovoLOG) 1 UNIT/0.01 ML (CHARGE PER UNIT) SC SCH ×4 (05:49→21:23)
[2018-11-24] MEDS: PIPERACILLIN/TAZO 4.5 GM/NS 100 ML IV SCH ×6 (06:07→23:08)
--- NOTE | 2018-11-24 06:41 | Pulmonary Consultation ---
History of Present Illness History of Present Illness Date of Consultation 11/24/18 06:37 Date of Admission Allergies and Home Medications Allergies Coded Allergies: No Known Drug Allergies (Unverified , 05/28/15) Home Medications Carvedilol 25 Mg Tablet, 25 MG PO BID, (Reported) Clonidine HCl 0.1 Mg Tablet, 0.1 MG PO BID, (Reported) Esomeprazole Magnesium 10 Mg Suspdr.pkt, 20 MG PO DAILY, (Reported) Lisinopril/Hydrochlorothiazide 1 Each Tablet, 1 EACH PO BID, (Reported) Metformin HCl 1,000 Mg Tablet, 1,000 MG PO BID, (Reported) Potassium Chloride 10 Meq Tablet.er, 10 MEQ PO DAILY Prescribed by: ALIZA REESE on 05/29/15 1106 Sitagliptin Phosphate 100 Mg Tablet, 100 MG PO DAILY, (Reported) Sucralfate 1 Gm Tablet, 1 GM PO BID, (Reported) Verapamil HCl 120 Mg Tablet, 120 MG PO BID, (Reported) Past Kpqoizo-Clvnby-Yaavyj Hx Patient Social History Alcohol Use: Past History Recreational Drug Use: Yes Smoking Status: Never a Smoker 2nd Hand Smoke Exposure: No Recent Foreign Travel: No Contact w/Someone Who Travel: No Recent Infectious Disease Expo: No Recent Hopitalizations: No Physical Abuse: No Sexual Abuse: No Mistreated: No Fear: No Seasonal Allergies Seasonal Allergies: Yes Past Medical History Surgeries: Yes (cleft palate, ortho) Respiratory: Yes COPD Cardiac: Yes Hypertension Neurological: No Reproductive Disorders: No Genitourinary: Yes (pt went through dialysis 4 or 5 times, but no trouble since ) Renal Failure Gastrointestinal: Yes Abdominal Hernia, Gastroesophageal Reflux, Hepatitis Musculoskeletal: No Endocrine: Yes Diabetes, Non-Insulin dep Are Your Blood Sugars Over 250: No HEENT: No Cancer: No Psychosocial: No Integumentary: No Blood Disorders: No Adverse Reaction/Blood Tranf: No Family Medical History Cardiovascular disease 19 FATHER Cerebral embolism G8 BROTHER Lung cancer 19 FATHER Myocardial infarction G8 BROTHER, Onset:50's - 60 G8 BROTHER, Onset:50's - 60 No Pertinent Family Hx, Heart Disease, Cancer, CAD Under 55 Years Old Sepsis Event Evaluation Height, Weight, BMI Height: 5'9.00" Weight: 220lbs. 0.0oz. 99.245521en; 33.5 BMI Method:Stated Exam Exam Vital Signs Date Time Temp Pulse Resp B/P (MAP) Pulse Ox O2 Delivery O2 Flow Rate FiO2 11/24/18 05:45 79 18 92 NIV Bilevel 35.00 11/24/18 05:00 80 8 139/89 (106) 94 NIV Bilevel 21.00 11/24/18 04:00 73 14 131/77 (95) 95 NIV Bilevel 21.00 11/24/18 03:43 75 17 95 NIV Bilevel 21.00 11/24/18 03:41 73 18 100 30.00 11/24/18 03:00 79 21 145/86 (105) 99 NIV Bilevel 30.00 11/24/18 02:00 80 20 138/78 (98) 98 NIV Bilevel 30.00 11/24/18 02:00 80 17 100 30.00 11/24/18 01:14 87 16 98 NIV Bilevel 30.00 11/24/18 01:00 87 11/24/18 01:00 85 99 11/24/18 01:00 87 17 123/77 (92) 99 Nasal Cannula 3.00 11/24/18 01:00 85 10 99 30.00 11/24/18 00:00 86 13 128/77 (94) 98 Nasal Cannula 3.00 11/23/18 23:51 98 17 94 Nasal Cannula 3.00 11/23/18 23:49 101 16 96 Nasal Cannula 2.00 11/23/18 23:49 98.6 11/23/18 23:00 93 15 109/69 (82) 95 Room Air 11/23/18 22:00 98 17 130/72 (91) 95 Room Air 11/23/18 21:00 98.9 99 20 144/79 (100) 97 Room Air 11/23/18 21:00 98.9 99 20 144/79 97 Room Air 11/23/18 20:00 95 25 125/71 (89) 98 Room Air 11/23/18 20:00 Room Air 11/23/18 19:43 99.3 11/23/18 19:00 100 15 131/62 (85) 96 Room Air 11/23/18 19:00 100 11/23/18 18:45 97.8 101 16 137/72 99 Room Air 2.00 11/23/18 18:29 97.9 99 16 143/79 99 Nasal Cannula 2.00 11/23/18 18:00 96 16 139/74 (95) 100 Room Air 11/23/18 17:00 97 11 118/75 (89) 94 Room Air 11/23/18 16:00 100 16 136/74 95 Room Air 11/23/18 16:00 98 21 145/74 (97) 95 Room Air 11/23/18 16:00 98.6 11/23/18 15:00 97 20 139/75 (96) 94 Room Air 11/23/18 14:00 98 22 136/74 (94) 94 Room Air 11/23/18 13:35 98.1 95 16 128/75 94 Nasal Cannula 11/23/18 13:19 98.0 99 14 137/73 9 Room Air 11/23/18 13:15 99 11/23/18 13:00 101 17 146/81 (102) 93 Room Air 11/23/18 12:00 101 21 106/64 (78) 95 Room Air 11/23/18 11:00 101 20 122/68 (86) 97 Room Air 11/23/18 10:00 105 19 121/68 (85) 96 Room Air 11/23/18 09:00 95 20 110/68 (82) 94 Room Air 11/23/18 09:00 Room Air 11/23/18 08:00 106 21 147/80 (102) 97 Room Air 11/23/18 07:00 98 18 130/78 (95) 97 Room Air 11/23/18 07:00 101 I & O 11/24/18 07:00 Intake Total 475 ml Output Total 3150 ml Balance -2675 ml Height & Weight Height: 5'9.00" Weight: 220lbs. 0.0oz. 99.105657bi; 33.5 BMI Method:Stated General Appearance: No Apparent Distress, WD/WN HEENT: PERRL/EOMI Neck: Full Range of Motion, Normal Inspection Respiratory: Chest Non Tender, No Accessory Muscle Use, No Respiratory Distress Cardiovascular: Tachycardia Capillary Refill: Less Than 3 Seconds Gastrointestinal: normal bowel sounds, non tender, soft Extremity: Normal Capillary Refill, Normal Inspection Neurologic/Psychiatric: Alert, Oriented x3, No Motor/Sensory Deficits Skin: Normal Color, Warm/Dry Lymphatic: No Adenopathy Results Lab Laboratory Tests 11/22/18 11:26 11/22/18 20:50 11/23/18 05:54 11/23/18 12:35 11/23/18 23:15 11/24/18 05:05 Assessment/Plan Assessment/Plan Sepsis Acute respiratory failure hypoxia -Currently on noninvasive ventilation Morbid obesity r/o OHS -Check ABG later today when pt is off BIPAP -Will try to qualify pt for home vent to mask DM II GIB -Surgery following HTN Fatty liver disease AUTUMN ROMERO DO Nov 24, 2018 06:41
[2018-11-24] MEDS ORDERED: POTASSIUM PHOSPHATE INJ 30 MM in NS (IVPB) 250 ML IV NR (06:45)
[2018-11-24] MEDS: RT-ALBUTEROL/IPRATROPIUM 3 ML (DUONEB) VIAL INH SCH ×2 (07:08→20:32)
[2018-11-24] MEDS: METOCLOPRAMIDE 10 MG (REGLAN) TAB PO SCH ×3 (08:03→21:29)
[2018-11-24] MEDS: PANTOPRAZOLE 40 MG (PROTONIX) VIAL IV SCH (08:03)
--- NOTE | 2018-11-24 08:52 | Progress Note-Hospitalist ---
Subjective HPI/CC On Admission Date Seen by Provider: Nov 24, 2018 Time Seen by Provider: 09:30 Subjective/Events-last exam Pt is hungry. Clear liquid diet only so will advance to soft bland diet due to gastritis on EGD. Received 4 units of packed red blood cells during this hospital stay. Will transfer to the floor. Denies any pain. Restarted most home meds. Will monitor blood sugar and blood pressure. Will not need Telemetry. Review of Systems General: Fatigue Focused Exam Lactate Level 11/22/18 13:01: Lactic Acid Level 3.06*H 11/22/18 15:30: Lactic Acid Level 2.70*H Objective Exam Vital Signs Vital Signs Date Time Temp Pulse Resp B/P (MAP) Pulse Ox O2 Delivery O2 Flow Rate FiO2 11/24/18 15:38 99.1 11/24/18 13:08 88 20 165/89 (114) 96 Room Air 11/24/18 12:00 35.00 Capillary Refill : Less Than 3 Seconds General Appearance: No Apparent Distress, WD/WN, Chronically ill, Obese HEENT: PERRL/EOMI Neck: Full Range of Motion, Normal Inspection Respiratory: Chest Non Tender, Lungs Clear, Normal Breath Sounds, No Accessory Muscle Use, No Respiratory Distress Cardiovascular: Regular Rate, Rhythm, Tachycardia Gastrointestinal: Normal Bowel Sounds, Soft, Tenderness (epigastric) Extremity: Normal Capillary Refill, Normal Inspection Neurologic/Psychiatric: Alert, Oriented x3, No Motor/Sensory Deficits Skin: Normal Color, Warm/Dry Lymphatic: No Adenopathy Results/Procedures Lab Laboratory Tests 11/23/18 23:15 11/24/18 05:05 Patient resulted labs reviewed. Assessment/Plan Assessment and Plan Assess & Plan/Chief Complaint GIB s/p 4 units of blood Sepsis HTN HLP DM Plan: Monitor hgb PPI [place] diet Diagnosis/Problems Diagnosis/Problems (1) Sepsis Status: Acute Qualifiers: Sepsis type: sepsis due to unspecified organism Qualified Codes: A41.9 - Sepsis, unspecified organism (2) GIH (gastrointestinal hemorrhage) Status: Acute Qualifiers: GI bleed type/associated pathology: gastrointestinal hemorrhage with hematemesis Qualified Codes: K92.0 - Hematemesis (3) Hypertension Status: Chronic Qualifiers: Hypertension type: essential hypertension Qualified Codes: I10 - Essential (primary) hypertension (4) Diabetes mellitus, type 2 Status: Chronic Qualifiers: Diabetes mellitus termite treater insulin use: without termite treater use Diabetes mellitus complication status: with hyperglycemia Qualified Codes: E11.65 - Type 2 diabetes mellitus with hyperglycemia (5) GERD (gastroesophageal reflux disease) Status: Chronic Qualifiers: Esophagitis presence: with esophagitis Qualified Codes: K21.0 - Gastro- esophageal reflux disease with esophagitis (6) Coronary artery disease Status: Chronic Qualifiers: Coronary Disease-Associated Artery/Lesion type: [place] artery [place] vs. transplanted heart: [place] heart Associated angina: without angina Qualified Codes: I25.10 - Atherosclerotic heart disease of [place] coronary artery without angina pectoris (7) Cleft palate Status: Chronic (8) Fatty liver Status: Chronic Clinical Quality Measures DVT/VTE Risk/Contraindication: Risk Factor Score Per Nursin RFS Level Per Nursing on Admit: 4+=Very High ROSA WHITE DO Nov 24, 2018 08:52
[2018-11-24] MEDS ORDERED: ACETAMINOPHEN 500 MG TAB (TYLENOL) PO PRN (10:00)
[2018-11-24] MEDS ORDERED: CALCIUM CARBONATE 500 MG (TUMS) TAB.CHEW PO PRN (10:00)
[2018-11-24] MEDS ORDERED: ALPRAZolam 0.25 MG (XANAX) TAB PO PRN (10:00)
[2018-11-24] MEDS ORDERED: diphenhydrAMINE 25 MG TAB (BENADRYL) PO PRN (10:00)
[2018-11-24] MEDS ORDERED: MELATONIN 3 MG TABLET PO PRN (10:00)
[2018-11-24] MEDS ORDERED: MECL-106 PO (10:21)
[2018-11-24] MEDS ORDERED: ATOR20TA66 PO (10:21)
[2018-11-24] MEDS ORDERED: ASPI-809 PO (10:21)
--- NOTE | 2018-11-24 10:23 | NUR ---
SPOKE WITH THE PATIENT ABOUT HIS MEDICATIONS. HE HAD HIS BOTTLES WITH HIM AND I CALLED [facility] TO VERIFY WHAT HAS BEEN FILLED RECENTLY. [facility] FILLED: 10-24-18 COREG 25MG BID 10-24-18 SUCRALFATE 1GM BID 10-24-18 METFORMIN 1000MG BID 10-24-18 LISINOPRIL HCTZ 20-25 BID 10-24-18 CLONIDINE 0.1MG BID 10-24-18 JANUVIA 100MG DAILY 10-24-18 VERAPAMIL 120MG BID HE ALSO HAS A BOTTLE OF LIPITOR 20MG DAILY #90 FILLED 09-18-18 FROM THE REPOSITORY. HE TAKES HEADACHE RELIEF (ASPIRIN, TYLENOL, CAFFEINE) BID OTC WELL MECLIZINE 25MG BID. HE STATES SHE IS SUPPOSED TO TAKE POTASSIUM AND NEXIUM AND PROMETHAZINE HOWEVER HE CAN NOT AFFORD THOSE. HE HAS AN EMPTY BOTTLE OF PROMETHAZINE FROM [facility] BUT STATES HE HAS BEEN OUT OF NEXIUM AND POTASSIUM FOR A YEAR.
--- NOTE | 2018-11-24 13:59 | Physical Therapy Evaluation ---
PT Evaluation-General Medical Diagnosis Admission Date Nov 22, 2018 at 12:09 Medical Diagnosis: GI bleed Onset Date: Nov 22, 2018 Therapy Diagnosis Therapy Diagnosis: decreased mobility Height/Weight Height (Feet): 5 Height (Inches): 9.00 Weight (Pounds): 220 Weight (Ounces): 0.0 Precautions Precautions/Isolations: Standard Precautions Weight Bear Status Right Lower Extremity: Right Full Weight Bearing Left Lower Extremity: Left Full Weight Bearing Referral Physician: Dr. Cao Reason for Referral: Evaluation/Treatment Medical History Pertinent Medical History: COPD, DM, GERD, HTN Additional Medical History Hepatitis Current History Pt ER via EMS due to syncopal event. Pt reports vomiting blood for 3 days. Reviewed History: Yes Social History Home: Single Level Current Living Status: Spouse Entry Into Home: Stairs With Railing PT Steps Into Home: 3 Prior/Core FIM Prior Level of Function Therapy Code Descriptions/Definitions Functional [place] Measure: 0=Not Assessed/NA 4=Minimal Assistance 1=Total Assistance 5=Supervision or Setup 2=Maximal Assistance 6=Modified [place] 3=Moderate Assistance 7=Complete [place] Therapy Quality Codes: 6 Independent with activity with or without an assistive device 5 Patient requires set up or clean up by helper. Patient completes activity by themselves 4 Supervision or touching assist (CGA). [place] provide cues , steadying assist 3 The helper provides less than half the effort to complete the activity 2 The helper provides more than half the effort to complete the activity 1 Dependent. The helper does all the effort to complete an activity 7 Patient refused to complete or attempt activity 9 The patient did not perform the activity before the current illness or injury 88 Not attempted due to Medical conditions or safety concerns Functional Abilities and Goals: Independent: Patient completed the activities by him/herself, with or without an assistive device, with no assistance from a helper. Needed Some Help: Patient needed partial assistance from another person to complete activities. Dependent: A helper completed the activities for the patient. Unknown: Not Applicable: Bed Mobility: 7 Transfers (B,C,W/C) (FIM): 7 Gait: 7 Stairs: 7 Indoor Mobility (Ambulation): Independent Stairs: Independent Prior Devices Use: None PT Evaluation-Current Subjective Pt was in bed and agreed to PT. Pt/Family Goals Pt to return home. Objective Patient Orientation: Person, Place, Situation, Normal For Age Attachments: Oliver Catheter, IV ROM/Strength ROM Lower Extremities NT Strength Lower Extremities NT Integumentary/Posture Bowel Incontinence: No Bladder Incontinence: Oliver Cath Sensory Vision: Functional Hearing: Functional Sensation Lower Extremities NT Transfers Therapy Code Descriptions/Definitions Functional [place] Measure: 0=Not Assessed/NA 4=Minimal Assistance 1=Total Assistance 5=Supervision or Setup 2=Maximal Assistance 6=Modified [place] 3=Moderate Assistance 7=Complete [place] Transfers (B, C, W/C) (FIM): 4 Scootin Supine to/from Sit: 6 Sit to/from Stand: 4 Gait Mode of Locomotion: Walk Anticipated Mode of Locomotion: Walk Gait (FIM): 2 Distance (FIM): 7=235-47 ft Distance: 125' Gait Level of Assist: 4 Gait Assistive Device: FWW Balance Sitting Static: Good Sitting Dynamic: Good Standing Static: Good Standing Dynamic: Good Assessment/Needs Pt was able to perform bed mobility mod indep. Pt was able to sit<>stand to FWW with CGA and VC for hand placement. Pt amb with FWW 125' with CGA for safety. Pt returned to room and is in recliner with all needs met. Rehab Potential: Good Post Rehab Potential-Barriers: co-morbidities PT Short Term Goals Short Term Goals Time Frame: Dec 01, 2018 Transfers (B,C,W/C) (FIM): 7 Gait (FIM): 6 Distance (FIM): 3=150 ft Gait Distance Comment: 300' Gait Level of Assist: 6 Gait Assistive Device: FWW PT Plan Problem List Problem List: Activity Tolerance, Functional Strength, Safety, Balance, Gait, Transfer, Bed Mobility, ROM Treatment/Plan Treatment Plan: Continue Plan of Care Treatment Plan: Bed Mobility, Education, Functional Activity K[place], Functional Strength, Gait, Safety, Therapeutic Exercise, Transfers Treatment Duration: Dec 01, 2018 Frequency: 6 times per week Estimated Hrs Per Day: .25 hour per day Patient and/or Family Agrees t: Yes Safety Risks/Education Patient Education: Gait Training, Transfer Techniques, Correct Positioning, Safety Issues Teaching Recipient: Patient Teaching Methods: Demonstration, Discussion Discharge Recommendations Therapy D/C Recommendations: Home w/ Family Support, Home Independently Time/GCodes Time In: 1303 Time Out: 1319 Total Billed Treatment Time: 16 Total Billed Treatment 1 visit EVlow 16 min ARTURO SCHOFIELD PT Nov 24, 2018 13:59
[2018-11-24] MEDS: SUCRALFATE 1 GM (CARAFATE) TAB PO SCH (15:45)
[2018-11-24 15:49] LABS: ABG OXYGEN SATURATION 97 % (94-100); ABG PCO2 38 MMHG (35-45); ABG PH 7.46 (7.37-7.43); ABG PO2 94 MMHG (79-93); ABG TCO2 27.6 MMOL/L (21.0-31.0)
[2018-11-24 15:50] LABS: ALLENS TEST POSITIVE; PATIENT TEMP 99.1; VENTILATOR NO
--- NOTE | 2018-11-24 16:06 | NUR ---
pt transferred to 422 via chair w/ staff/personal belongings. report given to chandni coles, no questions/concerns voiced.
--- NOTE | 2018-11-24 17:00 | Progress Note ---
Subjective Date Seen by a Provider: Nov 24, 2018 Time Seen by a Provider: 09:50 Subjective/Events-last exam Patient no new complaints. Hgb stable. No more hematemesis. Denies any abdominal pain today. NPO Focused Exam Lactate Level 11/22/18 13:01: Lactic Acid Level 3.06*H 11/22/18 15:30: Lactic Acid Level 2.70*H Objective Exam Vital Signs Date Time Temp Pulse Resp B/P (MAP) Pulse Ox O2 Delivery O2 Flow Rate FiO2 11/24/18 15:38 99.1 11/24/18 13:08 88 20 165/89 (114) 96 Room Air 11/24/18 13:00 88 11/24/18 12:20 99.1 11/24/18 12:00 82 20 140/76 (97) 93 NIV Bilevel 35.00 11/24/18 12:00 99.8 11/24/18 11:00 84 17 144/92 (109) 98 NIV Bilevel 35.00 11/24/18 10:00 79 16 131/85 (100) 95 NIV Bilevel 35.00 11/24/18 09:29 Room Air 11/24/18 09:00 92 7 145/86 (105) 96 NIV Bilevel 35.00 11/24/18 08:06 97.6 11/24/18 08:02 98.8 11/24/18 08:00 84 17 142/85 (104) 98 NIV Bilevel 35.00 11/24/18 07:08 96 Room Air 11/24/18 07:00 85 16 158/95 (116) 99 NIV Bilevel 35.00 11/24/18 07:00 89 11/24/18 06:47 101 19 93 Room Air 11/24/18 06:00 82 15 140/88 (105) 100 NIV Bilevel 35.00 11/24/18 05:45 79 18 92 NIV Bilevel 35.00 11/24/18 05:00 80 8 139/89 (106) 94 NIV Bilevel 21.00 11/24/18 04:00 73 14 131/77 (95) 95 NIV Bilevel 21.00 11/24/18 03:43 75 17 95 NIV Bilevel 21.00 11/24/18 03:41 73 18 100 30.00 11/24/18 03:00 79 21 145/86 (105) 99 NIV Bilevel 30.00 11/24/18 02:00 80 20 138/78 (98) 98 NIV Bilevel 30.00 11/24/18 02:00 80 17 100 30.00 11/24/18 01:14 87 16 98 NIV Bilevel 30.00 11/24/18 01:00 87 11/24/18 01:00 85 99 11/24/18 01:00 87 17 123/77 (92) 99 Nasal Cannula 3.00 11/24/18 01:00 85 10 99 30.00 11/24/18 00:00 86 13 128/77 (94) 98 Nasal Cannula 3.00 11/23/18 23:51 98 17 94 Nasal Cannula 3.00 11/23/18 23:49 101 16 96 Nasal Cannula 2.00 11/23/18 23:49 98.6 11/23/18 23:00 93 15 109/69 (82) 95 Room Air 11/23/18 22:00 98 17 130/72 (91) 95 Room Air 11/23/18 21:00 98.9 99 20 144/79 (100) 97 Room Air 11/23/18 21:00 98.9 99 20 144/79 97 Room Air 11/23/18 20:00 95 25 125/71 (89) 98 Room Air 11/23/18 20:00 Room Air 11/23/18 19:43 99.3 11/23/18 19:00 100 15 131/62 (85) 96 Room Air 11/23/18 19:00 100 11/23/18 18:45 97.8 101 16 137/72 99 Room Air 2.00 11/23/18 18:29 97.9 99 16 143/79 99 Nasal Cannula 2.00 11/23/18 18:00 96 16 139/74 (95) 100 Room Air 11/23/18 17:00 97 11 118/75 (89) 94 Room Air I & O 11/24/18 07:00 Intake Total 475 ml Output Total 3150 ml Balance -2675 ml Capillary Refill : Less Than 3 Seconds General Appearance: No Apparent Distress, WD/WN HEENT: PERRL/EOMI Neck: Full Range of Motion, Normal Inspection Respiratory: Chest Non Tender, No Accessory Muscle Use, No Respiratory Distress Cardiovascular: Regular Rate, Rhythm Gastrointestinal: non tender, soft, no organomegaly, other (b/l inguinal hernia ) Extremity: Normal Capillary Refill, Normal Inspection Neurologic/Psychiatric: Alert, Oriented x3, No Motor/Sensory Deficits Skin: Normal Color, Warm/Dry Lymphatic: No Adenopathy Results Lab Laboratory Tests 11/23/18 18:55: 11/23/18 21:15: Glucometer 105 11/23/18 23:15: Hemoglobin 8.0L, Hematocrit 25L 11/24/18 05:05: Hemoglobin 8.1L, Hematocrit 25L, White Blood Count 7.6, Red Blood Count 3.01L, Mean Corpuscular Volume 84, Mean Corpuscular Hemoglobin 27, Mean Corpuscular Hemoglobin Concent 32, Red Cell Distribution Width 15.7H, Platelet Count 133, Mean Platelet Volume 10.6H, Neutrophils (%) (Auto) 65, Lymphocytes (%) (Auto) 24 , Monocytes (%) (Auto) 10, Eosinophils (%) (Auto) 1, Basophils (%) (Auto) 1, Neutrophils # (Auto) 4.9, Lymphocytes # (Auto) 1.8, Monocytes # (Auto) 0.8, Eosinophils # (Auto) 0.1, Basophils # (Auto) 0.0, Sodium Level 143, Potassium Level 3.3L, Chloride Level 108H, Carbon Dioxide Level 27, Anion Gap 8, Blood Urea Nitrogen 17, Creatinine 0.85, Estimat Glomerular Filtration Rate > 60, BUN/ Creatinine Ratio 20, Glucose Level 105, Calcium Level 8.9, Corrected Calcium 9.6 , Phosphorus Level 1.4L, Magnesium Level 2.0, Total Bilirubin 0.5, Aspartate Amino Transf (AST/SGOT) 19, Alanine Aminotransferase (ALT/SGPT) 14, Alkaline Phosphatase 29L, Total Protein 4.9L, Albumin 3.1L 11/24/18 10:38: Glucometer 100 11/24/18 11:22: Lab Scanned Report Transfusion Reaction Form 11/24/18 15:43: Blood Gas Puncture Site LEFT RADIAL, Blood Gas Patient Temperature 99.1, Arterial Blood pH 7.46H, Arterial Blood Partial Pressure CO2 38, Arterial Blood Partial Pressure O2 94H, Arterial Blood HCO3 27, Arterial Blood Total CO2 27.6, Arterial Blood Oxygen Saturation 97, Arterial Blood Base Excess 3.0H, Jass Test POSITIVE, Blood Gas Ventilator Setting NO, Blood Gas Inspired Oxygen N/A 2/11/19 15:49: Glucometer 85 Microbiology 11/22/18 Blood Culture - Preliminary, Resulted No growth Assessment/Plan Assessment/Plan Assessment/Plan patient 63-year-old male with hematemesis of coffee-ground appearing vomitus, anemia secondary to GI bleed Epigastric abdominal pain Syncopal episode Hepatitis C Patient on Protonix. Patient transfused packed red blood cells, transfus prn s/p egd c biopsy antrum found to have gastritis will start on clears follow hgb and advance as long as stable if continues to worsen would consider repeat egd and colonoscopy Patient understands plan. All questions answered. Clinical Quality Measures DVT/VTE Risk/Contraindication: Risk Factor Score Per Nursin RFS Level Per Nursing on Admit: 4+=Very High ELENA CALL DO Nov 24, 2018 16:59
[2018-11-24] MEDS: lisINopril 20 MG (PRINIVIL) TABLET PO SCH (17:19)
[2018-11-24] MEDS: metFORMIN 500 MG (GLUCOPHAGE) TAB PO SCH (17:19)
[2018-11-24] MEDS: HYDROCHLOROTHIAZIDE 25 MG (HCTZ) TAB PO SCH (17:19)
[2018-11-24] MEDS: CARVEDILOL 12.5 MG (COREG) TABLET PO SCH (21:29)
[2018-11-24] MEDS: cloNIDine 0.1 MG (CATAPRES) TAB PO SCH (21:29)
[2018-11-24] MEDS: PANTOPRAZOLE 40 MG (PROTONIX) TAB PO SCH (21:29)
[2018-11-25] VITALS (7 sets, daily range): BP systolic 99–165; BP diastolic 53–97
[2018-11-25] MEDS: inSUlin ASPART (NovoLOG) 1 UNIT/0.01 ML (CHARGE PER UNIT) SC SCH ×4 (06:04→21:39)
[2018-11-25 06:26] LABS: HEPATITIS C ANTIBODY C Non-Reactive (Non-Reactive)
--- NOTE | 2018-11-25 06:26 | Pulmonary Progress Note ---
Sepsis Event Evaluation Height, Weight, BMI Height: 5'9.00" Weight: 220lbs. 0.0oz. 99.471412xl; 33.5 BMI Method:Stated Focused Exam Lactate Level 11/22/18 13:01: Lactic Acid Level 3.06*H 11/22/18 15:30: Lactic Acid Level 2.70*H Exam Exam Vital Signs Date Time Temp Pulse Resp B/P (MAP) Pulse Ox O2 Delivery O2 Flow Rate FiO2 11/25/18 04:00 97.6 95 20 110/61 (77) 95 Trach Collar 2.00 11/25/18 00:00 98.8 75 20 126/69 (88) 95 Room Air 11/24/18 20:33 96 Room Air 11/24/18 20:30 95 Room Air 11/24/18 20:00 98.6 100 16 169/91 (117) 98 Room Air 11/24/18 15:38 99.1 11/24/18 13:08 88 20 165/89 (114) 96 Room Air 11/24/18 13:00 88 11/24/18 12:20 99.1 11/24/18 12:00 82 20 140/76 (97) 93 NIV Bilevel 35.00 11/24/18 12:00 99.8 11/24/18 11:00 84 17 144/92 (109) 98 NIV Bilevel 35.00 11/24/18 10:00 79 16 131/85 (100) 95 NIV Bilevel 35.00 11/24/18 09:29 Room Air 11/24/18 09:00 92 7 145/86 (105) 96 NIV Bilevel 35.00 11/24/18 08:06 97.6 11/24/18 08:02 98.8 11/24/18 08:00 84 17 142/85 (104) 98 NIV Bilevel 35.00 11/24/18 07:08 96 Room Air 11/24/18 07:00 85 16 158/95 (116) 99 NIV Bilevel 35.00 11/24/18 07:00 89 11/24/18 06:47 101 19 93 Room Air I & O 11/25/18 07:00 Intake Total 2490 ml Output Total 3600 ml Balance -1110 ml Height & Weight Height: 5'9.00" Weight: 220lbs. 0.0oz. 99.261130kw; 33.5 BMI Method:Stated General Appearance: No Apparent Distress, WD/WN, Chronically ill, Obese HEENT: PERRL/EOMI Neck: Full Range of Motion, Normal Inspection Respiratory: Chest Non Tender, Lungs Clear, Normal Breath Sounds, No Accessory Muscle Use, No Respiratory Distress Cardiovascular: Regular Rate, Rhythm, Tachycardia Capillary Refill: Less Than 3 Seconds Gastrointestinal: non tender, soft, no organomegaly, other (b/l inguinal hernia ) Extremity: Normal Capillary Refill, Normal Inspection Neurologic/Psychiatric: Alert, Oriented x3, No Motor/Sensory Deficits Skin: Normal Color, Warm/Dry Lymphatic: No Adenopathy Results Lab Laboratory Tests 11/23/18 12:35 11/23/18 23:15 11/24/18 05:05 Assessment/Plan Assessment/Plan Sepsis -Repeat labs this AM -Zosyn change to Augmentin Acute respiratory failure hypoxia -Currently on noninvasive ventilation Morbid obesity r/o OHS -C02 38 - pt does not qualify for home vent to mask -Will do out patient PSG DM II Gastritis/ GIB S/p 4 units -Surgery following HTN Fatty liver disease AUTUMN ROMERO DO Nov 25, 2018 06:26
[2018-11-25] MEDS: NS IV 1000 ML 1,000 ML IV SCH ×3 (06:51→23:10)
[2018-11-25] MEDS: PIPERACILLIN/TAZO 4.5 GM/NS 100 ML IV SCH ×2 (06:52)
[2018-11-25] MEDS ORDERED: KCL 10 MEQ TAB (MICRO K) PO SCH (07:00)
[2018-11-25 07:04] LABS: BASOPHILS % (AUTO) 0 % (0-10); EOSINOPHILS # (AUTO) 0.2 10^3/uL (0.0-0.3); EOSINOPHILS % (AUTO) 4 % (0-10); HEMATOCRIT 25 % (40-54); HEMOGLOBIN 7.9 G/DL (13.3-17.7); LYMPHOCYTES # (AUTO) 1.3 X 10^3 (1.0-4.0); LYMPHOCYTES % (AUTO) 22 % (12-44); MEAN CORPUSCULAR HEMOGLOBIN 27 PG (25-34); MEAN CORPUSCULAR HGB CONC 32 G/DL (32-36); MEAN CORPUSCULAR VOLUME 85 FL (80-99); MEAN PLATELET VOLUME 10.5 FL (7.4-10.4); MONOCYTES # (AUTO) 0.5 X 10^3 (0.0-1.0); MONOCYTES % (AUTO) 9 % (0-12); NEUTROPHILS # (AUTO) 3.8 X 10^3 (1.8-7.8); NEUTROPHILS % (AUTO) 65 % (42-75); PLATELET COUNT 133 10^3/uL (130-400); RED CELL DISTRIBUTION WIDTH 15.6 % (10.0-14.5); WHITE BLOOD COUNT 5.9 10^3/uL (4.3-11.0)
[2018-11-25 07:20] LABS: BUN/CREATININE RATIO 7; CALCIUM 9.4 MG/DL (8.5-10.1); CARBON DIOXIDE 28 MMOL/L (21-32); CHLORIDE 107 MMOL/L (98-107); CREATININE SERUM 0.81 MG/DL (0.60-1.30); GFR ESTIMATED > 60; GLUCOSE 102 MG/DL (70-105); MAGNESIUM 1.5 MG/DL (1.8-2.4); PHOSPHORUS 1.5 MG/DL (2.3-4.7); POTASSIUM 3.1 MMOL/L (3.6-5.0); SODIUM 140 MMOL/L (135-145)
[2018-11-25] MEDS: VERAPAMIL SR 240 MG (CALAN SR) TAB PO SCH (08:28)
[2018-11-25] MEDS: cloNIDine 0.1 MG (CATAPRES) TAB PO SCH ×2 (08:28→21:58)
[2018-11-25] MEDS: CARVEDILOL 12.5 MG (COREG) TABLET PO SCH ×2 (08:29→21:58)
[2018-11-25] MEDS: HYDROCHLOROTHIAZIDE 25 MG (HCTZ) TAB PO SCH ×2 (08:29→17:15)
[2018-11-25] MEDS: SUCRALFATE 1 GM (CARAFATE) TAB PO SCH ×2 (08:29→17:15)
[2018-11-25] MEDS: PANTOPRAZOLE 40 MG (PROTONIX) TAB PO SCH ×2 (08:29→21:58)
[2018-11-25] MEDS: LINAGLIPTIN (TRADJENTA) 5 MG TABLET PO SCH (08:29)
[2018-11-25] MEDS: METOCLOPRAMIDE 10 MG (REGLAN) TAB PO SCH ×3 (08:29→21:58)
[2018-11-25] MEDS: metFORMIN 500 MG (GLUCOPHAGE) TAB PO SCH ×2 (08:30→17:14)
[2018-11-25] MEDS: lisINopril 20 MG (PRINIVIL) TABLET PO SCH ×2 (08:30→17:15)
[2018-11-25] MEDS ORDERED: ESOMEPRAZOLE MAGNESIUM 20 MG PO SCH (09:00)
--- NOTE | 2018-11-25 09:26 | Progress Note-Hospitalist ---
Subjective HPI/CC On Admission Date Seen by Provider: Nov 25, 2018 Time Seen by Provider: 09:00 Subjective/Events-last exam Pt is doing much better. Will check iron level. Will give iron infusion. Potassium 3.1 will give supplement. Social work consult for preparation of discharge tomorrow. Having loose stools. at home can take care of him. Will advance diet to bland diet. Will discontinue catheter. Review of Systems General: Fatigue Focused Exam Lactate Level Objective Exam Vital Signs Vital Signs Date Time Temp Pulse Resp B/P (MAP) Pulse Ox O2 Delivery O2 Flow Rate FiO2 11/25/18 17:20 98.9 78 20 128/73 (91) 98 Room Air 11/25/18 04:00 2.00 Capillary Refill : Less Than 3 Seconds General Appearance: No Apparent Distress, WD/WN, Chronically ill, Obese, Other (improved, sitting in chair) HEENT: PERRL/EOMI Neck: Full Range of Motion, Normal Inspection Respiratory: Chest Non Tender, Lungs Clear, Normal Breath Sounds, No Accessory Muscle Use, No Respiratory Distress Cardiovascular: Regular Rate, Rhythm, Tachycardia Gastrointestinal: Normal Bowel Sounds, Soft, Tenderness (epigastric) Extremity: Normal Capillary Refill, Normal Inspection Neurologic/Psychiatric: Alert, Oriented x3, No Motor/Sensory Deficits Skin: Normal Color, Warm/Dry Lymphatic: No Adenopathy Results/Procedures Lab Laboratory Tests 11/25/18 06:55 Patient resulted labs reviewed. Assessment/Plan Assessment and Plan Assess & Plan/Chief Complaint GIB s/p 4 units of blood Severe iron deficiency receiving iron infusion s/p sepsis HTN HLP DM Plan: Monitor hgb Venofer PPI [place] diet DC cath PT DC Wed Diagnosis/Problems Diagnosis/Problems (1) Sepsis Status: Acute Qualifiers: Sepsis type: sepsis due to unspecified organism Qualified Codes: A41.9 - Sepsis, unspecified organism (2) GIH (gastrointestinal hemorrhage) Status: Acute Qualifiers: GI bleed type/associated pathology: gastrointestinal hemorrhage with hematemesis Qualified Codes: K92.0 - Hematemesis (3) Hypertension Status: Chronic Qualifiers: Hypertension type: essential hypertension Qualified Codes: I10 - Essential (primary) hypertension (4) Diabetes mellitus, type 2 Status: Chronic Qualifiers: Diabetes mellitus assistant terminal manager insulin use: without care home use Diabetes mellitus complication status: with hyperglycemia Qualified Codes: E11.65 - Type 2 diabetes mellitus with hyperglycemia (5) GERD (gastroesophageal reflux disease) Status: Chronic Qualifiers: Esophagitis presence: with esophagitis Qualified Codes: K21.0 - Gastro- esophageal reflux disease with esophagitis (6) Coronary artery disease Status: Chronic Qualifiers: Coronary Disease-Associated Artery/Lesion type: [place] artery [place] vs. transplanted heart: [place] heart Associated angina: without angina Qualified Codes: I25.10 - Atherosclerotic heart disease of [place] coronary artery without angina pectoris (7) Cleft palate Status: Chronic (8) Fatty liver Status: Chronic Clinical Quality Measures DVT/VTE Risk/Contraindication: Risk Factor Score Per Nursin RFS Level Per Nursing on Admit: 4+=Very High ROSA WHITE DO Nov 25, 2018 09:25
[2018-11-25] MEDS ORDERED: KCL 10 MEQ TAB (MICRO K) PO NR (09:30)
[2018-11-25] MEDS ORDERED: IRON SUCROSE 200 MG/10 ML (VENOFER) VIAL IV NR (09:30)
[2018-11-25] MEDS: RT-ALBUTEROL/IPRATROPIUM 3 ML (DUONEB) VIAL INH SCH ×2 (09:46→22:54)
--- NOTE | 2018-11-25 09:58 | Physical Therapy Daily Note ---
PT Daily Note-Current Subjective Pt in bed and agrees to PT. Reports that he is ready to go home. Pain Numeric Pain Scale: 0-No Pain Location: No Pain Reported Mental Status Patient Orientation: Person, Place, Situation, Normal For Age Attachments: Oliver Catheter, IV Transfers Therapy Code Descriptions/Definitions Functional [place] Measure: 0=Not Assessed/NA 4=Minimal Assistance 1=Total Assistance 5=Supervision or Setup 2=Maximal Assistance 6=Modified [place] 3=Moderate Assistance 7=Complete [place] Therapy Quality Codes: 6 Independent with activity with or without an assistive device 5 Patient requires set up or clean up by helper. Patient completes activity by themselves 4 Supervision or touching assist (CGA). [place] provide cues , steadying assist 3 The helper provides less than half the effort to complete the activity 2 The helper provides more than half the effort to complete the activity 1 Dependent. The helper does all the effort to complete an activity 7 Patient refused to complete or attempt activity 9 The patient did not perform the activity before the current illness or injury 88 Not attempted due to Medical conditions or safety concerns Transfers (B, C, W/C) (FIM): 6 Scootin Supine to/from Sit: 6 Sit to/from Stand: 6 Weight Bearing Right Lower Extremity: Right Full Weight Bearing Left Lower Extremity: Left Full Weight Bearing Gait Training Gait (FIM): 6 Distance (FIM): 3=150 ft Distance: 400' Gait Level of Assist: 6 Gait Persons Needed: 1 Gait Assistive Device: FWW Pt uses wide APRIL with ER of LE Assessment Current Status: Good Progress Pt requests to use commode and is able to transfer from EOB to commode with FWW indep. Pt was returned to recliner by nurse. Pt was able to transfer from recliner to FWW indep. Pt amb 100' with FWW and then 300' with no AD. PT assisted with IV and catheter. Pt returned to recliner and has all needs met. PT Short Term Goals Short Term Goals Time Frame: Dec 01, 2018 Transfers (B,C,W/C) (FIM): 7 Gait (FIM): 6 Distance (FIM): 3=150 ft Gait Distance Comment: 300' Gait Level of Assist: 6 Gait Assistive Device: FWW PT Plan Problem List Problem List: Activity Tolerance, Safety, Balance, Gait Treatment/Plan Treatment Plan: Continue Plan of Care Treatment Plan: Bed Mobility, Education, Functional Activity [place]iley, Functional Strength, Gait, Safety, Therapeutic Exercise, Transfers Treatment Duration: Dec 01, 2018 Frequency: 6 times per week Estimated Hrs Per Day: .25 hour per day Patient and/or Family Agrees t: Yes Time/GCodes Time In: 911 Time Out: 925 Total Billed Treatment Time: 14 Total Billed Treatment 1 visit FA 14 min ARTURO SCHOFIELD PT Nov 25, 2018 09:58
--- NOTE | 2018-11-25 11:46 | Occupational Therapy Eval ---
OT Evaluation-General/PLF Medical Diagnosis Admission Date Nov 22, 2018 at 12:09 Medical Diagnosis: GI bleed Onset Date: Nov 22, 2018 Therapy Diagnosis Therapy Diagnosis: decreased self care skills Height/Weight Height (Feet): 5 Height (Inches): 9.00 Weight (Pounds): 219 Weight (Ounces): 3.0 Precautions Precautions/Isolations: Standard Precautions Safety Interventions: None Referral Physician: Dr. Cao Medical History Pertinent Medical History: COPD, DM, GERD, HTN Additional Medical History hernia, hepatitis, cleft palate Reviewed History: Yes Social History Home: Single Level Current Living Status: Spouse Entry Into Home: Stairs With Railing Steps Into Home: 3 ADL-Prior Level of Function Therapy Code Descriptions/Definitions Functional [place] Measure: 0=Not Assessed/NA 4=Minimal Assistance 1=Total Assistance 5=Supervision or Setup 2=Maximal Assistance 6=Modified [place] 3=Moderate Assistance 7=Complete [place] Therapy Quality Codes: 6 Independent with activity with or without an assistive device 5 Patient requires set up or clean up by helper. Patient completes activity by themselves 4 Supervision or touching assist (CGA). [place] provide cues , steadying assist 3 The helper provides less than half the effort to complete the activity 2 The helper provides more than half the effort to complete the activity 1 Dependent. The helper does all the effort to complete an activity 7 Patient refused to complete or attempt activity 9 The patient did not perform the activity before the current illness or injury 88 Not attempted due to Medical conditions or safety concerns Functional Abilities and Goals: Independent: Patient completed the activities by him/herself, with or without an assistive device, with no assistance from a helper. Needed Some Help: Patient needed partial assistance from another person to complete activities. Dependent: A helper completed the activities for the patient. Unknown: Not Applicable: ADL PLOF Comments Pt reports being independent prior to admission. Did not use any assistive devices. Self Care: Independent DME/Equipment: Tub/Shower Drive Self: Yes OT Current Status Subjective Pt sitting in chair, agrees to therapy. States he is ready to go home. Mental Status/Objective Patient Orientation: Person, Place, Situation Attachments: IV Current Glasses/Contacts: Yes (does not have them here) Hearing Aids: No Dentures/Partials: No Hand Dominance: Right Upper Extremity ROM Grossly WFL Upper Extremity Coordination Intact Upper Extremity Sensation Intact per pt report Upper Extremity Strength Grossly WFL ADL-Treatment ADL-Current Pt participated in UE assessment while seated. Requests to use BSC. Sit to stand from chair with modified independence. Transfer to BSC with good balance. Pt requests assist to complete thorough toileting hygiene. Transfer back to chair with SBA for safety and to manage IV tubing. Education provided regarding role of OT and plan of care. Pt states understanding and is in agreement. Pt sitting in chair with needs met after session. Therapy Code Descriptions/Definitions Functional [place] Measure: 0=Not Assessed/NA 4=Minimal Assistance 1=Total Assistance 5=Supervision or Setup 2=Maximal Assistance 6=Modified [place] 3=Moderate Assistance 7=Complete [place] Therapy Quality Codes: 6 Independent with activity with or without an assistive device 5 Patient requires set up or clean up by helper. Patient completes activity by themselves 4 Supervision or touching assist (CGA). [place] provide cues , steadying assist 3 The helper provides less than half the effort to complete the activity 2 The helper provides more than half the effort to complete the activity 1 Dependent. The helper does all the effort to complete an activity 7 Patient refused to complete or attempt activity 9 The patient did not perform the activity before the current illness or injury 88 Not attempted due to Medical conditions or safety concerns Education OT Patient Education: Rehab process Teaching Recipient: Patient Teaching Methods: Discussion Response to Teaching: Verbalize Understanding OT Short Term Goals Short Term Goals Transfers (B,C,W/C) (FIM): 7 1=Demonstrate adherence to instructed precautions during ADL tasks. 2=Patient will verbalize/demonstrate understanding of assistive devices/ modifications for ADL. 3=Patient will improve strength/tolerance for activity to enable patient to perform ADL's. OT Fdc Goals Grinder Set Up Operator Thread Goals Time Frame: Dec 02, 2018 Grooming(FIM): 6 Bathing(FIM): 5 Upper Body Dressing(FIM): 6 Lower Body Dressing(FIM): 6 Toileting(FIM): 6 Toilet/Commode Transfer(FIM): 6 Additional Goals: 1-Demonstrate ADL Tasks, 2-Verbalize Understanding, 3- ImproveStrength/[place] 1=Demonstrate adherence to instructed precautions during ADL tasks. 2=Patient will verbalize/demonstrate understanding of assistive devices/ modifications for ADL. 3=Patient will improve strength/tolerance for activity to enable patient to perform ADL's. OT Education/Plan Problem List/Assessment Assessment: Decreased Activ Tolerance, Dependent Transfers, Impaired Self-Care Skills Pt to benefit from skilled OT intervention for ADL training, transfers, strengthening, and safety education to increase level of independence and allow safe discharge plan. Discharge Recommendations Plan/Recommendations: Continue POC Treatment Plan/Plan of Care Treatment,Training & Education: Yes Patient would benefit from OT for education, treatment and training to promote independence in ADL's, mobility, safety and/or upper extremity function for ADL' s. Plan of Care: ADL Retraining, Functional Mobility, UE Funct Exercise/Act Treatment Duration: Dec 02, 2018 Frequency: 5 times per week Estimated Hrs Per Day: .25 hour per day Rehab Potential: Good Time/GCodes Start Time: 10:54 Stop Time: 11:20 Total Time Billed (hr/min): 26 Billed Treatment Time 1 visit, EVL(15minutes), ADL(11minutes) TAYLER WINTER OT Nov 25, 2018 11:46
[2018-11-25] MEDS: KCL 10 MEQ TAB (MICRO K) PO SCH (17:14)
[2018-11-25] MEDS: AUGMENTIN 875 MG TAB (AMOXICILLIN/CLAVULANATE) PO SCH (17:15)
--- NOTE | 2018-11-25 18:34 | Progress Note ---
Subjective Date Seen by a Provider: Nov 25, 2018 Time Seen by a Provider: 10:06 Subjective/Events-last exam patient states she's doing well. Denies any blood per rectum. He said no hematemesis. Patient tolerating diet. His hemoglobin stable. Denies nausea vomiting fever sweats chills shortness of breath or chest pain. No abdominal pain. Objective Exam Vital Signs Date Time Temp Pulse Resp B/P (MAP) Pulse Ox O2 Delivery O2 Flow Rate FiO2 11/25/18 17:20 98.9 78 20 128/73 (91) 98 Room Air 11/25/18 12:00 97.8 66 20 132/82 (99) 98 Room Air 11/25/18 09:46 96 Room Air 11/25/18 09:00 95 Room Air 11/25/18 08:00 98.1 79 20 165/97 (119) 96 Room Air 11/25/18 04:00 97.6 95 20 110/61 (77) 95 Trach Collar 2.00 11/25/18 00:00 98.8 75 20 126/69 (88) 95 Room Air 11/24/18 20:33 96 Room Air 11/24/18 20:30 95 Room Air 11/24/18 20:00 98.6 100 16 169/91 (117) 98 Room Air I & O 11/25/18 07:00 Intake Total 2690 ml Output Total 5200 ml Balance -2510 ml Capillary Refill : Less Than 3 Seconds General Appearance: No Apparent Distress, WD/WN, Chronically ill, Obese HEENT: PERRL/EOMI Neck: Full Range of Motion, Normal Inspection Respiratory: Chest Non Tender, Lungs Clear, Normal Breath Sounds, No Accessory Muscle Use, No Respiratory Distress Cardiovascular: Regular Rate, Rhythm, Tachycardia Gastrointestinal: non tender, soft, no organomegaly, other (b/l inguinal hernia ) Extremity: Normal Capillary Refill, Normal Inspection Neurologic/Psychiatric: Alert, Oriented x3, No Motor/Sensory Deficits Skin: Normal Color, Warm/Dry Lymphatic: No Adenopathy Results Lab Laboratory Tests 11/24/18 21:04: Glucometer 141H 11/25/18 06:04: Glucometer 103 11/25/18 06:55: White Blood Count 5.9, Red Blood Count 2.95L, Hemoglobin 7.9L, Hematocrit 25L, Mean Corpuscular Volume 85, Mean Corpuscular Hemoglobin 27, Mean Corpuscular Hemoglobin Concent 32, Red Cell Distribution Width 15.6H, Platelet Count 133, Mean Platelet Volume 10.5H, Neutrophils (%) (Auto) 65, Lymphocytes (%) (Auto) 22 , Monocytes (%) (Auto) 9, Eosinophils (%) (Auto) 4, Basophils (%) (Auto) 0, Neutrophils # (Auto) 3.8, Lymphocytes # (Auto) 1.3, Monocytes # (Auto) 0.5, Eosinophils # (Auto) 0.2, Basophils # (Auto) 0.0, Sodium Level 140, Potassium Level 3.1L, Chloride Level 107, Carbon Dioxide Level 28, Anion Gap 5, Blood Urea Nitrogen 6L, Creatinine 0.81, Estimat Glomerular Filtration Rate > 60, BUN/ Creatinine Ratio 7, Glucose Level 102, Calcium Level 9.4, Phosphorus Level 1.5L , Magnesium Level 1.5L, B-Type Natriuretic Peptide 71.9 11/25/18 08:55: Iron Level 19L 11/25/18 11:16: Glucometer 129H 11/25/18 17:16: Glucometer 114H Microbiology 11/22/18 Blood Culture - Preliminary, Resulted No growth Assessment/Plan Assessment/Plan Assessment/Plan patient 63-year-old male with hematemesis of coffee-ground appearing vomitus, anemia secondary to GI bleed Epigastric abdominal pain Syncopal episode Hepatitis C Patient on Protonix. Patient transfused packed red blood cells, transfus prn s/p egd c biopsy antrum found to have gastritis diet advance today Clinical Quality Measures DVT/VTE Risk/Contraindication: Risk Factor Score Per Nursin RFS Level Per Nursing on Admit: 4+=Very High ELENA CALL DO Nov 25, 2018 18:34
[2018-11-26 03:28] LABS: BASOPHILS % (AUTO) 0 % (0-10); EOSINOPHILS # (AUTO) 0.2 10^3/uL (0.0-0.3); EOSINOPHILS % (AUTO) 3 % (0-10); HEMATOCRIT 26 % (40-54); HEMOGLOBIN 8.6 G/DL (13.3-17.7); LYMPHOCYTES # (AUTO) 1.1 X 10^3 (1.0-4.0); LYMPHOCYTES % (AUTO) 17 % (12-44); MEAN CORPUSCULAR HEMOGLOBIN 28 PG (25-34); MEAN CORPUSCULAR HGB CONC 34 G/DL (32-36); MEAN CORPUSCULAR VOLUME 84 FL (80-99); MEAN PLATELET VOLUME 9.3 FL (7.4-10.4); MONOCYTES # (AUTO) 0.8 X 10^3 (0.0-1.0); MONOCYTES % (AUTO) 12 % (0-12); NEUTROPHILS # (AUTO) 4.4 X 10^3 (1.8-7.8); NEUTROPHILS % (AUTO) 67 % (42-75); PLATELET COUNT 270 10^3/uL (130-400); RED CELL DISTRIBUTION WIDTH 14.1 % (10.0-14.5); WHITE BLOOD COUNT 6.6 10^3/uL (4.3-11.0)
[2018-11-26 03:47] LABS: ALANINE AMINOTRANSFERASE 25 U/L (0-55); ALBUMIN 2.8 GM/DL (3.2-4.5); ALKALINE PHOSPHATASE 47 U/L (40-136); BILIRUBIN,TOTAL 0.6 MG/DL (0.1-1.0); BUN/CREATININE RATIO 16; CALCIUM 8.1 MG/DL (8.5-10.1); CARBON DIOXIDE 21 MMOL/L (21-32); CHLORIDE 101 MMOL/L (98-107); CREATININE SERUM 0.81 MG/DL (0.60-1.30); GFR ESTIMATED > 60; GLUCOSE 88 MG/DL (70-105); SODIUM 136 MMOL/L (135-145); TOTAL PROTEIN 5.3 GM/DL (6.4-8.2)
[2018-11-26 04:00] VITALS: BP 122/72
[2018-11-26] MEDS: inSUlin ASPART (NovoLOG) 1 UNIT/0.01 ML (CHARGE PER UNIT) SC SCH (05:50)
[2018-11-26] MEDS: lisINopril 20 MG (PRINIVIL) TABLET PO SCH (06:33)
[2018-11-26] MEDS: AUGMENTIN 875 MG TAB (AMOXICILLIN/CLAVULANATE) PO SCH (06:33)
[2018-11-26] MEDS: HYDROCHLOROTHIAZIDE 25 MG (HCTZ) TAB PO SCH (06:33)
[2018-11-26] MEDS: SUCRALFATE 1 GM (CARAFATE) TAB PO SCH (06:34)
[2018-11-26] MEDS: metFORMIN 500 MG (GLUCOPHAGE) TAB PO SCH (06:34)
[2018-11-26] MEDS: KCL 10 MEQ TAB (MICRO K) PO SCH (06:34)
[2018-11-26] MEDS: RT-ALBUTEROL/IPRATROPIUM 3 ML (DUONEB) VIAL INH SCH (07:43)
[2018-11-26 08:00] VITALS: BP 139/97
--- NOTE | 2018-11-26 08:01 | Pulmonary Progress Note ---
Sepsis Event Evaluation Height, Weight, BMI Height: 5'9.00" Weight: 215lbs. 8.0oz. 97.236405sq; 33.5 BMI Method:Stated Exam Exam Vital Signs Date Time Temp Pulse Resp B/P (MAP) Pulse Ox O2 Delivery O2 Flow Rate FiO2 11/26/18 07:45 95 Room Air 11/26/18 04:00 98.4 83 18 122/72 (89) 96 Room Air 11/25/18 23:34 98.9 89 24 137/80 (99) 95 Room Air 11/25/18 21:00 95 Room Air 11/25/18 20:57 98.9 82 24 151/82 (105) 97 Room Air 11/25/18 17:20 98.9 78 20 128/73 (91) 98 Room Air 11/25/18 12:00 97.8 66 20 132/82 (99) 98 Room Air 11/25/18 09:46 96 Room Air 11/25/18 09:00 95 Room Air I & O 11/26/18 07:00 Intake Total 2553 ml Output Total 3995 ml Balance -1442 ml Height & Weight Height: 5'9.00" Weight: 215lbs. 8.0oz. 97.014999mx; 33.5 BMI Method:Stated General Appearance: No Apparent Distress, WD/WN, Chronically ill, Obese, Other (improved, sitting in chair) HEENT: PERRL/EOMI Neck: Full Range of Motion, Normal Inspection Respiratory: Chest Non Tender, Lungs Clear, Normal Breath Sounds, No Accessory Muscle Use, No Respiratory Distress Cardiovascular: Regular Rate, Rhythm, Tachycardia Capillary Refill: Less Than 3 Seconds Gastrointestinal: non tender, soft, no organomegaly, other (b/l inguinal hernia ) Extremity: Normal Capillary Refill, Normal Inspection Neurologic/Psychiatric: Alert, Oriented x3, No Motor/Sensory Deficits Skin: Normal Color, Warm/Dry Lymphatic: No Adenopathy Results Lab Laboratory Tests 11/25/18 06:55 11/26/18 03:06 Assessment/Plan Assessment/Plan Sepsis - much improved -Augmentin Acute respiratory failure hypoxia -Monitor -SVNS Morbid obesity r/o OHS -C02 38 - pt does not qualify for home vent to mask -Will do out patient PSG DM II Gastritis/ GIB S/p 4 units -Surgery following HTN Fatty liver disease AUTUMN ROMERO DO Nov 26, 2018 08:01
--- NOTE | 2018-11-26 08:42 | Physical Therapy Daily Note ---
PT Daily Note-Current Subjective Pt in recliner and agrees to PT. Reports he should be dismissed today. Mental Status Patient Orientation: Person, Place, Situation, Normal For Age Attachments: IV Transfers Therapy Code Descriptions/Definitions Functional [place] Measure: 0=Not Assessed/NA 4=Minimal Assistance 1=Total Assistance 5=Supervision or Setup 2=Maximal Assistance 6=Modified [place] 3=Moderate Assistance 7=Complete [place] Therapy Quality Codes: 6 Independent with activity with or without an assistive device 5 Patient requires set up or clean up by helper. Patient completes activity by themselves 4 Supervision or touching assist (CGA). [place] provide cues , steadying assist 3 The helper provides less than half the effort to complete the activity 2 The helper provides more than half the effort to complete the activity 1 Dependent. The helper does all the effort to complete an activity 7 Patient refused to complete or attempt activity 9 The patient did not perform the activity before the current illness or injury 88 Not attempted due to Medical conditions or safety concerns Transfers (B, C, W/C) (FIM): 7 Scootin Sit to/from Stand: 7 Weight Bearing Right Lower Extremity: Right Full Weight Bearing Left Lower Extremity: Left Full Weight Bearing Gait Training Gait (FIM): 7 Distance (FIM): 3=150 ft Distance: 400' Gait Level of Assist: 7 Gait Persons Needed: 1 Gait Assistive Device: None Assessment Current Status: Good Progress Pt was able to perform sit<>stand transfer from recliner indep. Pt amb 400' indep with no AD and PT assisting with IV pole. Pt does amb with in toeing and slight hyperextension of knees. Pt returned to room and has all needs met. PT Short Term Goals Short Term Goals Time Frame: Dec 01, 2018 Transfers (B,C,W/C) (FIM): 7 Gait (FIM): 6 Distance (FIM): 3=150 ft Gait Distance Comment: 300' Gait Level of Assist: 6 Gait Assistive Device: FWW PT Plan Problem List Problem List: Activity Tolerance, Functional Strength, Safety, Balance, Gait Treatment/Plan Treatment Plan: Continue Plan of Care Treatment Plan: Bed Mobility, Education, Functional Activity [place], Functional Strength, Gait, Safety, Therapeutic Exercise, Transfers Treatment Duration: Dec 01, 2018 Frequency: 6 times per week Estimated Hrs Per Day: .25 hour per day Patient and/or Family Agrees t: Yes Safety Risks/Education Patient Education: Gait Training, Transfer Techniques, Correct Positioning, Safety Issues Teaching Recipient: Patient Teaching Methods: Demonstration, Discussion Response to Teaching: Reinforcement Needed Time/GCodes Time In: 828 Time Out: 836 Total Billed Treatment Time: 8 Total Billed Treatment 1 visit GT 8 min LILI FERGUSON PT Nov 26, 2018 08:42
[2018-11-26] MEDS: cloNIDine 0.1 MG (CATAPRES) TAB PO SCH (08:50)
[2018-11-26] MEDS: NS IV 1000 ML 1,000 ML IV SCH (08:50)
[2018-11-26] MEDS: LINAGLIPTIN (TRADJENTA) 5 MG TABLET PO SCH (08:50)
[2018-11-26] MEDS: VERAPAMIL SR 240 MG (CALAN SR) TAB PO SCH (08:50)
[2018-11-26] MEDS: PANTOPRAZOLE 40 MG (PROTONIX) TAB PO SCH (08:50)
[2018-11-26] MEDS: METOCLOPRAMIDE 10 MG (REGLAN) TAB PO SCH (08:50)
[2018-11-26] MEDS: CARVEDILOL 12.5 MG (COREG) TABLET PO SCH (08:50)
[2018-11-26] MEDS ORDERED: METO10TA3 PO (10:23)
[2018-11-26] MEDS ORDERED: PANT40TA3 PO (10:23)
[2018-11-26] MEDS ORDERED: FERR325T18 PO (10:23)
[2018-11-26] MEDS ORDERED: POTA10CA43 PO (10:23)
--- NOTE | 2018-11-26 10:24 | Discharge Summary-Hospitalist ---
Diagnosis/Chief Complaint Date of Admission Nov 22, 2018 at 12:09 Date of Discharge Discharge Date: Nov 26, 2018 Discharge Diagnosis (1) Sepsis Status: Resolved (2) GIH (gastrointestinal hemorrhage) Status: Resolved (3) Hypertension Status: Chronic (4) Diabetes mellitus, type 2 Status: Chronic (5) GERD (gastroesophageal reflux disease) Status: Chronic (6) Coronary artery disease Status: Chronic (7) Cleft palate Status: Chronic (8) Fatty liver Status: Chronic Discharge Summary Discharge Physical Exam Allergies: Coded Allergies: No Known Drug Allergies (Unverified , 05/28/15) Vitals & I&Os Vital Signs Date Time Temp Pulse Resp B/P (MAP) Pulse Ox O2 Delivery O2 Flow Rate FiO2 11/26/18 11:53 83 18 139/97 95 Room Air 11/26/18 08:00 98.0 11/25/18 04:00 2.00 General Appearance: No Apparent Distress, WD/WN, Chronically ill, Obese, Other (improved, sitting in chair) HEENT: PERRL/EOMI Respiratory: Chest Non Tender, Lungs Clear, Normal Breath Sounds, No Accessory Muscle Use, No Respiratory Distress Cardiovascular: Regular Rate, Rhythm, Tachycardia Gastrointestinal: Normal Bowel Sounds, Soft, Tenderness (epigastric) Extremity: Normal Capillary Refill, Normal Inspection Skin: Normal Color, Warm/Dry Neurologic/Psychiatric: Alert, Oriented x3, No Motor/Sensory Deficits Hospital Course Was the Problem List Reviewed?: Yes Hospital course: Pt had an uneventful hospital course, he was admitted for GI bleed from gastritis, received four units of blood and resulted iron level was 19, so required iron infusion. Pt was found to have elevated white count, and elevated lactic acid. Maintained on broad spectrum antibiotics, and switched to Augmentin and that was completed during hospital stay. Pt was deemed stable for discharge from general surgery and pulmonology and he will have close follow-up with [facility]. Labs (last 24 hrs) Laboratory Tests 11/25/18 21:37: Glucometer 122H 11/26/18 03:06: White Blood Count 6.6, Red Blood Count 3.06L, Hemoglobin 8.6L, Hematocrit 26L, Mean Corpuscular Volume 84, Mean Corpuscular Hemoglobin 28, Mean Corpuscular Hemoglobin Concent 34, Red Cell Distribution Width 14.1, Platelet Count 270, Mean Platelet Volume 9.3, Neutrophils (%) (Auto) 67, Lymphocytes (%) (Auto) 17, Monocytes (%) (Auto) 12, Eosinophils (%) (Auto) 3, Basophils (%) (Auto) 0, Neutrophils # (Auto) 4.4, Lymphocytes # (Auto) 1.1, Monocytes # (Auto) 0.8, Eosinophils # (Auto) 0.2, Basophils # (Auto) 0.0, Sodium Level 136, Potassium Level 3.0L, Chloride Level 101, Carbon Dioxide Level 21, Anion Gap 14, Blood Urea Nitrogen 13, Creatinine 0.81, Estimat Glomerular Filtration Rate > 60, BUN/ Creatinine Ratio 16, Glucose Level 88, Calcium Level 8.1L, Corrected Calcium 9.1 , Total Bilirubin 0.6, Aspartate Amino Transf (AST/SGOT) 34, Alanine Aminotransferase (ALT/SGPT) 25, Alkaline Phosphatase 47, Total Protein 5.3L, Albumin 2.8L 11/26/18 05:48: Glucometer 108 Microbiology 11/22/18 Blood Culture - Preliminary, Resulted No growth Patient resulted labs reviewed. Pending Labs Discussion & Recommendations Discharge Planning: <30 minutes discharge planning Discharge Home Medications: Active Scripts Active Potassium Chloride 10 Meq Capsule.er 10 Meq PO BID Ferrous Sulfate 325 Mg Tablet 325 Mg PO Q48H Metoclopramide HCl 10 Mg Tablet 10 Mg PO TID Pantoprazole Sodium 40 Mg Tablet.dr 40 Mg PO BID Reported Meclizine HCl 25 Mg Tablet 25 Mg PO BID Headache Relief Caplet (Aspirin/Acetaminophen/Caffeine) 1 Each Tablet 1 Tab PO BID Atorvastatin Calcium 20 Mg Tablet 20 Mg PO HS Sucralfate 1 Gm Tablet 1 Gm PO BID Verapamil HCl 120 Mg Tablet 120 Mg PO BID Januvia (Sitagliptin Phosphate) 100 Mg Tablet 100 Mg PO DAILY Metformin HCl 1,000 Mg Tablet 1,000 Mg PO BID Lisinopril-Hctz 20-25 mg Tab (Lisinopril/Hydrochlorothiazide) 1 Each Tablet 1 Tab PO BID Carvedilol 25 Mg Tablet 25 Mg PO BID Clonidine HCl 0.1 Mg Tablet 0.1 Mg PO BID Instructions to patient/family Please see electronic discharge instructions given to patient. Clinical Quality Measures DVT/VTE Risk/Contraindication: Risk Factor Score Per Nursin RFS Level Per Nursing on Admit: 4+=Very High Problem Qualifiers (1) Sepsis: Sepsis type: sepsis due to unspecified organism Qualified Codes: A41.9 - Sepsis, unspecified organism (2) GIH (gastrointestinal hemorrhage): GI bleed type/associated pathology: gastrointestinal hemorrhage with hematemesis Qualified Codes: K92.0 - Hematemesis (3) Hypertension: Hypertension type: essential hypertension Qualified Codes: I10 - Essential ( primary) hypertension (4) Diabetes mellitus, type 2: Diabetes mellitus buttermaker insulin use: without jail use Diabetes mellitus complication status: with hyperglycemia Qualified Codes: E11.65 - Type 2 diabetes mellitus with hyperglycemia (5) GERD (gastroesophageal reflux disease): Esophagitis presence: with esophagitis Qualified Codes: K21.0 - Gastro- esophageal reflux disease with esophagitis (6) Coronary artery disease: Coronary Disease-Associated Artery/Lesion type: [place] artery [place] vs. transplanted heart: [place] heart Associated angina: without angina Qualified Codes: I25.10 - Atherosclerotic heart disease of [place] coronary artery without angina pectoris ROSA WHITE DO Nov 26, 2018 10:24
[2018-11-26 11:53] VITALS: BP 139/97
== END 2018-11-26 10:55 | disposition home or self-care (01) | DRG 871 ==
LOC: EDUNIT# 11:09 → ER 11:11 → ICU 12:09 → 4TH 11-24 16:10
PROVIDERS: ADMIT Family Medicine; ATTEND Family Medicine
PROC: 0DB78ZX Excision of Stomach, Pylorus, Via Natural or Artificial Opening Endoscopic, Diagnostic (ICD-10-PCS; principal; 2018-11-24)
DX: A41.9 Sepsis, unspecified organism (principal); K29.51 Unspecified chronic gastritis with bleeding; J96.01 Acute respiratory failure with hypoxia; D50.0 Iron deficiency anemia secondary to blood loss (chronic); E66.01 Morbid (severe) obesity due to excess calories; I25.10 Atherosclerotic heart disease of native coronary artery without angina pectoris; E11.65 Type 2 diabetes mellitus with hyperglycemia; I10 Essential (primary) hypertension; K21.0 Gastro-esophageal reflux disease with esophagitis; K76.0 Fatty (change of) liver, not elsewhere classified; R06.6 Hiccough; E78.5 Hyperlipidemia, unspecified; J44.9 Chronic obstructive pulmonary disease, unspecified; Z68.32 Body mass index [BMI] 32.0-32.9, adult; Z86.19 Personal history of other infectious and parasitic diseases; Z79.84 Long term (current) use of oral hypoglycemic drugs
CPT/HCPCS: 36415; 36430; 36600; 51702; 70450; 71045; 72125; 74176; 80048; 80053; 80074; 81000; 82805; 82962; 83540; 83605; 83690; 83735; 83880; 84100; 84484; 85007; 85014; 85018; 85025; 85027; 85610; 85730; 86850; 86900; 86901; 86920; 87040; 93005; 94640; 94660; 94760

== ENCOUNTER → 2020-06-29 | Outpatient (CLI) | payer MEDICARE ==
[~2020-06-29] MED LIST changes: +ASPI-809 PO; +ATOR20TA66 PO; +ESOM10SU PO; +FERR325T18 PO; -LISI1TAB10 PO; +LISI1TAB26 PO; +MECL-149 PO; +METF-399 PO; +METO10TA3 PO; +PANT40TA52 PO; +POTA10CA43 PO; +SUCR1TAB PO; +VERA120T10 PO; +VERA120T15 PO; -VERA120T84 PO
== END ==
LOC: CARD 09:23
PROVIDERS: ATTEND Family Medicine
DX: I51.7 Cardiomegaly (principal)
CPT/HCPCS: 93306

== ENCOUNTER → 2020-07-14 | Outpatient (CLI) | payer MEDICARE ==
[~2020-07-14] MED LIST changes: +HOLD METFORMIN - RECEIVED CONTRAST 20 ML VIAL IV SCH; +IOHEXOL 350 MG/ML 100 ML (OMNIPAQUE 350) VIAL IV ONE; +NS 100 ML (IVPB) BAG IV ONE
[2020-07-14 08:30] LABS: BUN/CREATININE RATIO 13; CREATININE SERUM 1.12 MG/DL (0.60-1.30); GFR ESTIMATED > 60
--- NOTE | 2020-07-14 09:32 | Diagnostic Imaging Report ---
EXAMINATION: CT Abdomen and Pelvis with intravenous contrast. TECHNIQUE: Multiple contiguous axial images were obtained through the abdomen and pelvis after the uneventful administration of intravenous contrast. All CT scans use one or more of the following dose optimizing techniques: automated exposure control, MA and/or KvP adjustment based on a patient size and exam type, or iterative reconstruction. HISTORY: EPIGASTRIC ABDOMINAL TENDERNESS COMPARISON: CT abdomen/pelvis 11/22/2018 FINDINGS: Lung bases: The lung bases are clear. Solid organs: Diffuse hypoattenuation of the liver compatible with hepatic steatosis. Focal fatty sparing near the gallbladder. The gallbladder is normal. There is no biliary ductal dilation. Pancreas is normal. Spleen is normal. Adrenal glands are normal. The kidneys are normal without hydronephrosis. Bowel: There is a small fat-containing paraesophageal hernia. Within the herniated fat, there is a 1.8 x 1.1 cm focus of fluid or possibly small lymph node which is nonspecific (series 2 image 11). A small hiatal hernia is present. Loops of colon within the large left inguinal hernia currently which are only partially visualized. No findings of obstruction. Peritoneum: There is no intraperitoneal free fluid or free air. No suspicious retroperitoneal lymphadenopathy. Vasculature: Calcification of the aorta without aneurysm. Musculoskeletal: There is a large left inguinal hernia which contains mesenteric fat as well as multiple loops of partially visualized colon. Degenerative changes of the spine without suspicious osseous lesion or compression fracture. Pelvis: The prostate gland is enlarged. The urinary bladder is normal. IMPRESSION: 1. No acute abnormality abdomen or pelvis. 2. A large left inguinal hernia containing multiple loops of nonobstructed bowel. 3. Hepatic steatosis. Dictated by: Dictated on workstation # [id number]
== END ==
LOC: RAD 07:59
PROVIDERS: ATTEND Surgery
DX: K76.0 Fatty (change of) liver, not elsewhere classified (principal); K40.90 Unilateral inguinal hernia, without obstruction or gangrene, not specified as recurrent
CPT/HCPCS: 36415; 74177; 82565; 84520

== ENCOUNTER → 2020-08-03 | Outpatient (CLI) | payer MEDICARE ==
[~2020-08-03] VITALS: Ht 175 cm; Wt 118.0 kg
[~2020-08-03] MED LIST changes: +CATHETER FLUSH 10 ML SYR IV PRN; -HOLD METFORMIN - RECEIVED CONTRAST 20 ML VIAL IV SCH; -IOHEXOL 350 MG/ML 100 ML (OMNIPAQUE 350) VIAL IV ONE; -NS 100 ML (IVPB) BAG IV ONE; +REGADENOSON 0.4 MG/5 ML SYR (LEXISCAN) IV ONE
--- NOTE | 2020-08-03 08:41 | Diagnostic Imaging Report ---
EXAMINATION: CT Lung Screening. INDICATION: 30 pack-year smoking history. TECHNIQUE: Noncontrast, low-dose CT imaging performed according to the lung cancer screening protocol. Auto Exposure Controls were utilize during the CT exam to meet ALARA standards for radiation dose reduction. COMPARISON: None. COMPARISON: There are no prior CT chest examinations available for comparison. FINDINGS: In the medial aspect of the left lung base, there are two contiguous nodules (image 171/series 2). The more medial is calcified and most likely benign. This nodule measures 7.5 mm. The more lateral nodule is not calcified and measures 8.5 mm. I do suspect this is a benign process. Even so, I would recommend that a short-term (3 month) followup CT chest exam be performed for further study. There is no other parenchymal lung mass identified. There is no sign of failure, pneumonia, or pleural effusion. The heart size is within normal limits. There are coronary artery calcifications evident. There is a 3.2 cm calcification in the subcarinal region. Most likely, this is a sequela of prior granulomatous infection. There is no obvious mediastinal or hilar adenopathy. The thyroid gland was partially obscured by streak artifact. The sections through the upper abdomen show that the liver is of lower density than usually seen. This does suggest fatty metamorphosis. There is no acute abnormality of the upper abdomen. The bone windows are unremarkable for a fracture or destructive lesion. IMPRESSION: 1. There are two contiguous nodules in the left lung base. The calcified nodule is most likely benign and the other nodule is probably secondary to a benign process as well. A [address] low dose screening exam would be recommended for further study. 2. There is no other parenchymal lung mass identified. 3. There is no sign of an acute cardiopulmonary abnormality. 4. There is coronary artery disease although the heart itself is not enlarged. LUNG-RADS CATEGORY:4 MODIFIER: OTHER SIGNIFICANT FINDINGS: Dictated by: Dictated on workstation # [id number]
[2020-08-03 09:05] VITALS: BP 169/100
--- NOTE | 2020-08-03 12:42 | Cardiology Stress Test Report ---
Stress Test Report Date of Procedure/Referring: Date of Procedure: Aug 03, 2020 PCP Christiane Delgado MD Admitting Physician Christiane Delgado MD Indications: Chest pain Baseline Heart Rate: 78 Baseline Blood Pressure: Blood Pressure Systolic: 169 Blood Pressure Diastolic: 100 Baseline Vitals Vital Signs Date Time Temp Pulse Resp B/P (MAP) Pulse Ox O2 Delivery O2 Flow Rate FiO2 08/03/20 09:05 78 169/100 (123) 98 Baseline EKG: Baseline EKG: normal sinus rhythm Summary After explaining the procedure to the patient, he signed a consent and then brought to the stress nuclear laboratory. Patient received 0.4 mg Lexiscan for stress test, ECG, heart rate and blood pressure were monitored continuously. Resting and stress dose of radio tracer were injected, imaging was acquired and reviewed in short axis, horizontal long axis and vertical long axis views. TID: 0.89 SSS: 4 SDS: 0 EF: 57 1. Patient tolerated Lexiscan well 2. Fixed defect involving the mid to apical inferior wall with no significant ischemia or infarction 3. Normal left ventricular size with normal contractility, EF 57 percent TALISHA RAWLS MD Aug 03, 2020 12:42
== END ==
LOC: CARD 07:30
PROVIDERS: ATTEND Family Medicine
DX: Z87.891 Personal history of nicotine dependence (principal); Z12.2 Encounter for screening for malignant neoplasm of respiratory organs; R07.89 Other chest pain; R91.8 Other nonspecific abnormal finding of lung field; I25.10 Atherosclerotic heart disease of native coronary artery without angina pectoris
CPT/HCPCS: 78452; 93017; A9502; G0297

== ENCOUNTER 2020-10-06 20:16 | Emergency (ER) | payer MEDICARE ==
[~2020-10-06] VITALS: Ht 175 cm; Wt 118.0 kg
[~2020-10-06 20:16] MED LIST changes: -CATHETER FLUSH 10 ML SYR IV PRN; +CLN.1T PO; -CLON0.1T PO; -REGADENOSON 0.4 MG/5 ML SYR (LEXISCAN) IV ONE
[2020-10-06 20:33] LABS: BASOPHILS # (AUTO) 0.1 10^3/uL (0.0-0.1); BASOPHILS % (AUTO) 1 % (0-10); EOSINOPHILS # (AUTO) 0.2 10^3/uL (0.0-0.3); EOSINOPHILS % (AUTO) 2 % (0-10); HEMATOCRIT 47 % (40-54); HEMOGLOBIN 14.3 g/dL (13.3-17.7); LYMPHOCYTES # (AUTO) 1.3 10^3/uL (1.0-4.0); LYMPHOCYTES % (AUTO) 10 % (12-44); MEAN CORPUSCULAR HEMOGLOBIN 25 pg (25-34); MEAN CORPUSCULAR HGB CONC 31 g/dL (32-36); MEAN CORPUSCULAR VOLUME 82 fL (80-99); MEAN PLATELET VOLUME 10.5 fL (9.0-12.2); MONOCYTES # (AUTO) 0.6 10^3/uL (0.0-1.0); MONOCYTES % (AUTO) 4 % (0-12); NEUTROPHILS % (AUTO) 83 % (42-75); PLATELET COUNT 242 10^3/uL (130-400); WHITE BLOOD COUNT 13.3 10^3/uL (4.3-11.0)
--- NOTE | 2020-10-06 20:35 | ED GI ---
General Chief Complaint: Abdominal/GI Problems Stated Complaint: POSS GI BLEED Source of Information: Patient Exam Limitations: No Limitations History of Present Illness Date Seen by Provider: Oct 06, 2020 Time Seen by Provider: 20:09 Initial Comments The patient presents to the ER by EMS from home with chief complaint of bright red blood per rectum approximately 1 hour prior to arrival. He had his gallbladder out about 10 to 14 days ago at [place]. Primary care by Dr. Augustine and denies any chest pain or shortness of air. He has some lower abdominal discomfort. He has had GI bleeds in the past and had to have transfusions. He is not on blood thinners. He does have diabetes but does not use insulin. He denies any fever cough chills shortness of air or sick contacts. The patient states he has a chronic hernia in his scrotum. It is not bothering him today. He has not taken anything for the diarrhea. Patient states he has had the inguinal hernia for about 25 years and is not having any pain but he thinks when he was straining with the diarrhea he may of pushed on it a little too hard. It is not bothering him now. Allergies and Home Medications Allergies Coded Allergies: No Known Drug Allergies (Unverified , 05/28/15) Home Medications Aspirin/Acetaminophen/Caffeine 1 Each Tablet, 1 TAB PO BID, (Reported) Atorvastatin Calcium 20 Mg Tablet, 20 MG PO HS, (Reported) Carvedilol 25 Mg Tablet, 25 MG PO BID, (Reported) Clonidine HCl 0.1 Mg Tablet, 0.1 MG PO BID, (Reported) Ferrous Sulfate 325 Mg Tablet, 325 MG PO Q48H Prescribed by: ROSA WHITE on 11/26/18 1023 Lisinopril/Hydrochlorothiazide 1 Each Tablet, 1 TAB PO BID, (Reported) Meclizine HCl 25 Mg Tablet, 25 MG PO BID, (Reported) Metformin HCl 1,000 Mg Tablet, 1,000 MG PO BID, (Reported) Metoclopramide HCl 10 Mg Tablet, 10 MG PO TID Prescribed by: ROSA WHITE on 11/26/18 1023 Pantoprazole Sodium 40 Mg Tablet.dr, 40 MG PO BID Prescribed by: ROSA WHITE on 11/26/18 1023 Potassium Chloride 10 Meq Capsule.er, 10 MEQ PO BID Prescribed by: ROSA WHITE on 11/26/18 1023 Sitagliptin Phosphate 100 Mg Tablet, 100 MG PO DAILY, (Reported) Sucralfate 1 Gm Tablet, 1 GM PO BID, (Reported) Verapamil HCl 120 Mg Tablet, 120 MG PO BID, (Reported) Patient Home Medication List Home Medication List Reviewed: Yes Review of Systems Review of Systems Constitutional: No chills, No diaphoresis EENTM: No Blurred Vision, No Mouth Pain Respiratory: Denies Cough, Denies SOA at Rest Cardiovascular: Denies Chest Pain, Denies Lightheadedness Gastrointestinal: See HPI, Abdominal Pain; Denies Constipated; Diarrhea; Denies Difficulty Swallowing, Denies Nausea Genitourinary: Denies Burning, Denies Discharge Musculoskeletal: No back pain, No joint pain All Other Systems Reviewed Negative Unless Noted: Yes Past [id number]-[id number]-Venwba Hx Patient Social History Alcohol Use: Denies Use Recreational Drug Use: No Smoking Status: Former Smoker Type Used: Cigarettes Former Smoker, Quit: Sep 13, 2013 2nd Hand Smoke Exposure: No Recent Hopitalizations: No Seasonal Allergies Seasonal Allergies: Yes Past Medical History Surgeries: Yes (cleft palate, ortho) Respiratory: Yes COPD Cardiac: Yes Hypertension Neurological: No Reproductive Disorders: No Genitourinary: Yes (pt went through dialysis 4 or 5 times, but no trouble since) Renal Failure Gastrointestinal: Yes Abdominal Hernia, Gastroesophageal Reflux, Hepatitis Musculoskeletal: No Endocrine: Yes Diabetes, Non-Insulin dep HEENT: No Cancer: No Psychosocial: No Integumentary: No Blood Disorders: No Adverse Reaction/Blood Tranf: No Family Medical History Cardiovascular disease 19 FATHER Cerebral embolism G8 BROTHER Lung cancer 19 FATHER Myocardial infarction G8 BROTHER, Onset:50's - 60 G8 BROTHER, Onset:50's - 60 No Pertinent Family Hx, Heart Disease, Cancer, CAD Under 55 Years Old Physical Exam Vital Signs Vital Signs - First Documented 10/06/20 20:18 Temp 36.0 Pulse 94 Resp 20 B/P (MAP) 122/85 (97) O2 Delivery Room Air Capillary Refill : Height/Weight/BMI Height: 5'9.00" Weight: 215lbs. 8.0oz. 97.810717zw; 38.53 BMI Method:Stated General Appearance: WD/WN, no apparent distress HEENT: PERRL/EOMI, pharynx normal Neck: full range of motion, normal inspection Respiratory: lungs clear, normal breath sounds, no respiratory distress, no accessory muscle use Cardiovascular: normal peripheral pulses, regular rate, rhythm Gastrointestinal: normal bowel sounds, non tender, soft, no organomegaly Genital/Rectal: other (No dorothea blood, or masses at the rectal verge. No fissures or significant hemorrhoids. The scrotum is full of hernia contents.) Extremities: normal range of motion, normal capillary refill Progress/Results/Core Measures Results/Orders Lab Results Laboratory Tests Test 10/06/20 20:20 Range/Units White Blood Count 13.3 H 4.3-11.0 10^3/uL Red Blood Count 5.68 H 4.30-5.52 10^6/uL Hemoglobin 14.3 13.3-17.7 g/dL Hematocrit 47 40-54 % Mean Corpuscular Volume 82 80-99 fL Mean Corpuscular Hemoglobin 25 25-34 pg Mean Corpuscular Hemoglobin Concent 31 L 32-36 g/dL Red Cell Distribution Width 15.2 H 10.0-14.5 % Platelet Count 242 130-400 10^3/uL Mean Platelet Volume 10.5 9.0-12.2 fL Immature Granulocyte % (Auto) 1 % Neutrophils (%) (Auto) 83 H 42-75 % Lymphocytes (%) (Auto) 10 L 12-44 % Monocytes (%) (Auto) 4 0-12 % Eosinophils (%) (Auto) 2 0-10 % Basophils (%) (Auto) 1 0-10 % Neutrophils # (Auto) 11.0 H 1.8-7.8 10^3/uL Lymphocytes # (Auto) 1.3 1.0-4.0 10^3/uL Monocytes # (Auto) 0.6 0.0-1.0 10^3/uL Eosinophils # (Auto) 0.2 0.0-0.3 10^3/uL Basophils # (Auto) 0.1 0.0-0.1 10^3/uL Immature Granulocyte # (Auto) 0.1 0.0-0.1 10^3/uL Sodium Level 133 L 135-145 MMOL/L Potassium Level 3.8 3.6-5.0 MMOL/L Chloride Level 98 98-107 MMOL/L Carbon Dioxide Level 23 21-32 MMOL/L Anion Gap 12 5-14 MMOL/L Blood Urea Nitrogen 19 H 7-18 MG/DL Creatinine 1.39 H 0.60-1.30 MG/DL Estimat Glomerular Filtration Rate 52 BUN/Creatinine Ratio 14 Glucose Level 259 H 70-105 MG/DL Calcium Level 10.7 H 8.5-10.1 MG/DL Corrected Calcium 10.5 H 8.5-10.1 MG/DL Total Bilirubin 0.5 0.1-1.0 MG/DL Aspartate Amino Transf (AST/SGOT) 98 H 5-34 U/L Alanine Aminotransferase (ALT/SGPT) 215 H 0-55 U/L Alkaline Phosphatase 186 H 40-136 U/L Total Protein 7.9 6.4-8.2 GM/DL Albumin 4.2 3.2-4.5 GM/DL Lipase 49 8-78 U/L My Orders Orders - ENEDINA FELIPE Cbc With Automated Diff (10/06/20 20:28) Comprehensive Metabolic Panel (10/06/20 20:28) Lipase (10/06/20 20:28) Pantoprazole Injection (Protonix Injecti (10/06/20 20:45) Ed Iv/Invasive Line Start (10/06/20 20:39) Ns Iv 500 Ml (Sodium Chloride 0.9%) (10/06/20 20:45) Loperamide Tablet (Imodium Tablet) (10/06/20 20:45) Loperamide Tablet (Imodium Tablet) (10/06/20 20:39) Fecal Occult Bedside (10/06/20 20:57) Ct Abdomen/Pelvis W (10/06/20 21:06) Medications Given in ED Current Medications Medications Dose Ordered Sig/Kobi Route Start Time Stop Time Status Last Admin Dose Admin Loperamide HCl 4 mg ONCE ONCE PO 10/06/20 20:45 10/06/20 20:46 DC 10/06/20 20:48 4 MG Pantoprazole 40 mg ONCE ONCE IV 10/06/20 20:45 10/06/20 20:46 DC 10/06/20 20:49 40 MG Sodium Chloride 500 ml @ 0 mls/hr Q0M ONCE IV 10/06/20 20:45 10/06/20 20:46 DC 10/06/20 20:48 500 MLS/HR Vital Signs/I&O 10/06/20 20:18 Temp 36.0 Pulse 94 Resp 20 B/P (MAP) 122/85 (97) O2 Delivery Room Air Fecal Occult: Positive Progress Progress Note #1: Time: 20:33 Progress Note Vital signs are aseptic. Plan to give him some pantoprazole check a fecal occult blood test and hemoglobin. Fecal occult blood test is positive. No rectal masses. Progress Note #2: Time: 21:13 Progress Note The labs are okay. The patient's had a couple episodes of diarrhea with no dorothea blood in it. His inguinal hernia is not bothering him presently and it is thought that it is likely not to be strangulated given its not tender. It has not changed size in the last several years. We recommend he follow-up with Dr. Bennett his surgeon to have this hernia repaired and he agrees with that plan. We have also recommended follow-up with the surgeon to discuss colonoscopy if indicated. We have given return precautions and were going to allow him to discharge home. 4 mg Imodium were given. Departure Impression Primary Impression: Diarrhea Qualified Codes: R19.7 - Diarrhea, unspecified Additional Impression: Occult blood positive stool Disposition: 01 HOME, SELF-CARE Condition: Stable Departure-Patient Inst. Decision time for Depature: 21:15 Referrals: NURIA AUGUSTINE MD (PCP/Family) Primary Care Physician Patient Instructions: Diarrhea, Adult ED, Dealing with Diarrhea from the Drugs You Take, Bloody Stools Add. Discharge Instructions: Since you have some blood in your stools it would be reasonable to have Dr. Bennett the surgeon discuss a colonoscopy with you. Return to the nearest ER if you begin to have shortness of breath or chest pain. Drink plenty of fluids to keep from becoming dehydrated. Imodium 1 tablet every 4 hours as necessary for loose watery stools. Discussed with Dr. Bennett having your inguinal hernia repaired as well. All discharge instructions reviewed with patient and/or family. Voiced understanding. ENEDINA FELIPE Oct 06, 2020 20:35
[2020-10-06] MEDS ORDERED: LOPERAMIDE 2 MG (IMODIUM) TABLET ONE (20:39)
[2020-10-06] MEDS ORDERED: NS IV 500 ML 500 ML IV ONE (20:45)
[2020-10-06] MEDS ORDERED: LOPERAMIDE 2 MG (IMODIUM) TABLET PO ONE (20:45)
[2020-10-06] MEDS ORDERED: PANTOPRAZOLE 40 MG (PROTONIX) VIAL IV ONE (20:45)
[2020-10-06 20:46] LABS: ALBUMIN 4.2 GM/DL (3.2-4.5); BILIRUBIN,TOTAL 0.5 MG/DL (0.1-1.0); CALCIUM 10.7 MG/DL (8.5-10.1); CREATININE SERUM 1.39 MG/DL (0.60-1.30); POTASSIUM 3.8 MMOL/L (3.6-5.0); TOTAL PROTEIN 7.9 GM/DL (6.4-8.2)
[2020-10-06] MEDS ORDERED: RX-LOPERAMIDE 2 MG (IMODIUM) CAP PPK#4 PO ONE ×2 (21:25→21:30)
[2020-10-06 21:31] VITALS: BP 146/97
== END 2020-10-06 21:34 | disposition home or self-care (01) ==
LOC: EDUNIT# 20:16 → ER 20:18
DX: R19.7 Diarrhea, unspecified (principal); K92.1 Melena; I10 Essential (primary) hypertension; K21.9 Gastro-esophageal reflux disease without esophagitis; E11.9 Type 2 diabetes mellitus without complications; Z82.49 Family history of ischemic heart disease and other diseases of the circulatory system; Z80.1 Family history of malignant neoplasm of trachea, bronchus and lung; Z87.891 Personal history of nicotine dependence; Z79.82 Long term (current) use of aspirin; Z79.84 Long term (current) use of oral hypoglycemic drugs
CPT/HCPCS: 36415; 80053; 82274; 83690; 85025

== ENCOUNTER → 2020-12-15 | Outpatient (CLI) | payer MEDICARE ==
[~2020-12-15] MED LIST changes: -METO10TA3 PO; +MTC10T PO
--- NOTE | 2020-12-15 14:19 | Diagnostic Imaging Report ---
EXAMINATION: CT Chest without contrast (lung screening). TECHNIQUE: Multiple contiguous axial images were obtained through the chest without the use of intravenous contrast according to lung cancer screening protocol. All CT scans use one or more of the following dose optimizing techniques: automated exposure control, MA and/or KvP adjustment based on a patient size and exam type, or iterative reconstruction. HISTORY: 30 pack year history of smoking. COMPARISON: 08/03/2020. FINDINGS: There is no edema or pneumonia. No pleural effusion. No pneumothorax. There is a stable bilobed nodule in the left lung base that is partially calcified in total measuring 10 mm in average diameter. It is unchanged from 11/22/2018. It cannot be considered benign. No other nodules are seen. There is no axillary or supraclavicular lymphadenopathy. There is no mediastinal lymphadenopathy. Heart size is normal. There are mild coronary artery calcifications. No pericardial effusion. Aorta is normal in caliber. Limited views of the upper abdomen are unremarkable. There are no suspicious osseus lesions. IMPRESSION: 1. Partially calcified bilobed left lower lobe pulmonary artery is unchanged and can be considered benign. Continued annual follow-up is recommended. LUNG-RADS CATEGORY: 2 MODIFIER: None. Dictated by: Dictated on workstation # [id number]
== END ==
LOC: RAD 13:36
PROVIDERS: ATTEND Family Medicine
DX: Z12.2 Encounter for screening for malignant neoplasm of respiratory organs (principal); Z87.891 Personal history of nicotine dependence; J98.4 Other disorders of lung
CPT/HCPCS: 71271

== ENCOUNTER → 2022-10-24 | Outpatient (CLI) | payer MEDICARE, MEDICAID ==
[~2022-10-24] MED LIST changes: -LISI1TAB26 PO; +LISI1TAB48 PO; -VERA120T10 PO; +VERA120T74 PO
== END ==
LOC: CARD 13:39
PROVIDERS: ATTEND Internal Medicine Cardiovascular Disease
DX: I11.9 Hypertensive heart disease without heart failure (principal)
CPT/HCPCS: 93306

== ENCOUNTER → 2022-11-14 | Outpatient (CLI) | payer MEDICARE, MEDICAID ==
[~2022-11-14] VITALS: Ht 175 cm; Wt 99.0 kg
[~2022-11-14] MED LIST changes: +CATHETER FLUSH 10 ML SYR IVP PRN; -POTA10CA43 PO; +POTA10CA44 PO; +REGADENOSON 0.4 MG/5 ML SYR (LEXISCAN) IV ONE
[2022-11-14 09:30] VITALS: BP 152/96
--- NOTE | 2022-11-14 14:06 | Cardiology Stress Test Report ---
Stress Test Report Date of Procedure/Referring: Date of Procedure: Nov 14, 2022 PCP Christiane Delgado MD Admitting Physician Admitting Physician: Attending Physician: Talisha Duran MD Indications: HTN Baseline Heart Rate: 80 Baseline Blood Pressure: Blood Pressure Systolic: 152 Blood Pressure Diastolic: 96 Baseline Vitals Vital Signs Date Time Temp Pulse Resp B/P (MAP) Pulse Ox O2 Delivery O2 Flow Rate FiO2 11/14/22 09:30 81 152/96 (114) Baseline EKG: Baseline EKG: NSR Summary After explaining the procedure to the patient, he signed a consent and then brought to the stress nuclear laboratory. Patient received 0.4 mg Lexiscan for stress test, ECG, heart rate and blood pressure were monitored continuously. Resting and stress dose of radio tracer were injected, imaging was acquired and reviewed in short axis, horizontal long axis and vertical long axis views. TID: 1.12 SSS: 10 SDS: 0 EF: 57 1. Patient tolerated Lexiscan well 2. Fixed defect involving the inferior wall with no reversibility probably due to extracardiac attenuation 3. Normal left ventricular size with normal contractility, ejection fraction 57%, inferior wall is yum[place] normally Copy Copies To 1: [facility] [place] TALISHA DURAN MD Nov 14, 2022 14:06
== END ==
LOC: CARD 08:06
PROVIDERS: ATTEND Internal Medicine Cardiovascular Disease
DX: I10 Essential (primary) hypertension (principal); I25.10 Atherosclerotic heart disease of native coronary artery without angina pectoris
CPT/HCPCS: 78452; 93017

== ENCOUNTER 2023-01-09 05:33 | Outpatient (CLI) | payer MEDICARE, MEDICAID ==
[~2023-01-09] VITALS: Ht 175.3 cm; Wt 99.1 kg
[~2023-01-09 05:33] MED LIST changes: -CATHETER FLUSH 10 ML SYR IVP PRN; -REGADENOSON 0.4 MG/5 ML SYR (LEXISCAN) IV ONE
[2023-01-09] MEDS ORDERED: SITA100T12 PO (12:26)
[2023-01-09] MEDS ORDERED: OMEP40CA6 PO (12:26)
[2023-01-09] MEDS ORDERED: LISI40TA9 PO (12:26)
[2023-01-09] MEDS ORDERED: AMLO-251 PO (12:26)
[2023-01-09] MEDS ORDERED: DOXA2TAB2 PO (12:26)
[2023-01-09] MEDS ORDERED: FURO20TA4 PO (12:26)
== END 2023-01-09 12:30 | disposition home or self-care (01) ==
LOC: PREOP 05:33
PROVIDERS: ATTEND Surgery
DX: Z01.818 Encounter for other preprocedural examination (principal)

== ENCOUNTER 2023-03-31 13:13 | Emergency (ER) | payer MEDICARE, MEDICAID ==
[~2023-03-31] VITALS: Ht 175.3 cm; Wt 100.7 kg
[~2023-03-31 13:13] MED LIST changes: +AMLO-251 PO; +DOXA2TAB2 PO; +FURO20TA4 PO; +LISI40TA9 PO; +OMEP40CA6 PO
[2023-03-31] MEDS ORDERED: HOLD METFORMIN - RECEIVED CONTRAST 20 ML VIAL IV SCH (13:45)
[2023-03-31] MEDS ORDERED: fentaNYL INJ 100 MCG/2 ML AMP IVP ONE (13:45)
[2023-03-31] MEDS ORDERED: IOHEXOL 350 MG/ML 100 ML (OMNIPAQUE 350) VIAL IV ONE (13:45)
[2023-03-31] MEDS ORDERED: NS 100 ML (IVPB) BAG IV ONE (13:45)
--- NOTE | 2023-03-31 13:47 | ED Abdominal Pain ---
General Chief Complaint: Abdominal/GI Problems Stated Complaint: AB PAIN Nursing Triage Note: PT AMB TO ED BY POV WITH C/O ABD PAIN. PT REPORTS GENERALIZED ABD PAIN X 1 MONTH, WORSE TODAY. DENIES N/V/D. LBM YESTERDAY, NORMAL FOR PT. DENIES URINARY SX. Source of Information: Patient Exam Limitations: No Limitations History of Present Illness Date Seen by Provider: Mar 31, 2023 Time Seen by Provider: 13:26 Initial Comments 67-year-old male presents to the ER with complaints of generalized abdominal pain that has been intermittent for several years. He states that it normally lasts about 15 to 20 minutes. Reports that it started again yesterday, states the pain was much worse than normal, reports the pain has not gone away. He reports intermittent diarrhea, last episode was 2 weeks ago. States that yesterday he had 1 hard stool, and 2 normal stools. Denies any blood in his stool currently. Denies fevers, chest pain, shortness of air, nausea, vomiting. He states that he previously had blood in his stool, was supposed to have a colonoscopy, but was not cleaned out enough for the procedure. He has not rescheduled a colonoscopy. Past medical history includes COPD, diabetes, hypertension. He has had his gallbladder removed, no other abdominal surgeries. Allergies and Home Medications Allergies Coded Allergies: oxycodone (Verified Adverse Reaction, Unknown, 03/31/23) Patient Home Medication List Home Medication List Reviewed: Yes Amlodipine Besylate (Amlodipine Besylate) 10 Mg Tablet, 10 MG PO DAILY, (Reported) Entered as Reported by: BARRY SMITH on 01/09/23 1226 Aspirin/Acetaminophen/Caffeine (Headache Relief Caplet) 1 Each Tablet, 1 TAB PO BID, (Reported) Entered as Reported by: AMOR MCCOLLUM on 11/24/18 1021 Carvedilol (Carvedilol) 25 Mg Tablet, 25 MG PO BID, (Reported) Entered as Reported by: MOMO SON on 05/28/15 1033 Doxazosin Mesylate (Doxazosin Mesylate) 2 Mg Tablet, 2 MG PO DAILY, (Reported) Entered as Reported by: BARRY SMITH on 01/09/23 1226 Furosemide (Furosemide) 20 Mg Tablet, 20 MG PO DAILY, (Reported) Entered as Reported by: BARRY SMITH on 01/09/23 1226 Lisinopril (Lisinopril) 40 Mg Tablet, 40 MG PO DAILY, (Reported) Entered as Reported by: BARRY SMITH on 01/09/23 1226 Metformin HCl (Metformin HCl) 1,000 Mg Tablet, 1,000 MG PO BID, (Reported) Entered as Reported by: JACQUELINE BAR on 11/23/18 0909 Omeprazole (Omeprazole) 40 Mg Capsule.dr, 40 MG PO DAILY, (Reported) Entered as Reported by: BARRY SMITH on 01/09/23 1226 Sitagliptin Phosphate (Januvia) 100 Mg Tablet, 100 MG PO DAILY, (Reported) Entered as Reported by: BARRY SMITH on 01/09/23 1226 Review of Systems Review of Systems Constitutional: see HPI Past Lqhgorh-Qwapoi-Icrsmd Hx Patient Social History Tobacco Use?: No Smoking Status: Former Smoker Use of E-Cig and/or Vaping dev: No Substance use?: No Alcohol Use?: No Pt feels they are or have been: No Immunizations Up To Date First/Initial COVID19 Vaccinat: NO Second COVID19 Vaccination Deonte: NO Third COVID19 Vaccination Date: NO Seasonal Allergies Seasonal Allergies: Yes Past Medical History Surgery/Hospitalization HX: HTN, DM2, COPD, HERNIA, MARTITA Surgeries: Yes (cleft palate, ortho) Gallbladder Respiratory: Yes COPD Cardiac: Yes Hypertension Neurological: No Reproductive Disorders: No Genitourinary: Yes Renal Failure Gastrointestinal: Yes Abdominal Hernia, Gastroesophageal Reflux, Hepatitis Musculoskeletal: No Endocrine: Yes Diabetes, Non-Insulin dep HEENT: No Cancer: No Psychosocial: No Integumentary: No Blood Disorders: No Adverse Reaction/Blood Tranf: No Family Medical History Cardiovascular disease 19 FATHER Cerebral embolism G8 BROTHER Lung cancer 19 FATHER Myocardial infarction G8 BROTHER, Onset:50's - 60 G8 BROTHER, Onset:50's - 60 No Pertinent Family Hx, Heart Disease, Cancer, CAD Under 55 Years Old Physical Exam Vital Signs Vital Signs - First Documented 03/31/23 13:21 Temp 36.6 Pulse 85 Resp 18 B/P (MAP) 121/80 (94) Pulse Ox 95 O2 Delivery Room Air Capillary Refill : Less Than 3 Seconds Height/Weight/BMI Height: 5'9.00" Weight: 215lbs. 8.0oz. 97.228469hs; 32.00 BMI Method:Stated General Appearance: WD/WN, no apparent distress Neck: supple, normal inspection Respiratory: lungs clear, normal breath sounds, no respiratory distress, no accessory muscle use Cardiovascular: regular rate, rhythm Gastrointestinal: normal bowel sounds, guarding (All 4 quadrants), tenderness (All 4 quadrants), hernia (Large inguinal hernia, no pain at site of hernia or in scrotum) Genital/Rectal: other (No pain with palpation of scrotum) Extremities: normal range of motion, normal inspection Neurologic/Psychiatric: alert, normal mood/affect Skin: normal color, warm/dry Progress/Results/Core Measures Results/Orders Lab Results Laboratory Tests Test 03/31/23 13:30 03/31/23 15:09 Range/Units White Blood Count 10.4 4.3-11.0 10^3/uL Red Blood Count 5.20 4.30-5.52 10^6/uL Hemoglobin 14.7 13.3-17.7 g/dL Hematocrit 44 40-54 % Mean Corpuscular Volume 85 80-99 fL Mean Corpuscular Hemoglobin 28 25-34 pg Mean Corpuscular Hemoglobin Concent 33 32-36 g/dL Red Cell Distribution Width 13.5 10.0-14.5 % Platelet Count 168 130-400 10^3/uL Mean Platelet Volume 11.0 9.0-12.2 fL Immature Granulocyte % (Auto) 1 % Neutrophils (%) (Auto) 75 42-75 % Lymphocytes (%) (Auto) 14 12-44 % Monocytes (%) (Auto) 7 0-12 % Eosinophils (%) (Auto) 3 0-10 % Basophils (%) (Auto) 1 0-10 % Neutrophils # (Auto) 7.8 1.8-7.8 10^3/uL Lymphocytes # (Auto) 1.4 1.0-4.0 10^3/uL Monocytes # (Auto) 0.7 0.0-1.0 10^3/uL Eosinophils # (Auto) 0.3 0.0-0.3 10^3/uL Basophils # (Auto) 0.1 0.0-0.1 10^3/uL Immature Granulocyte # (Auto) 0.1 0.0-0.1 10^3/uL Sodium Level 136 135-145 MMOL/L Potassium Level 4.0 3.6-5.0 MMOL/L Chloride Level 103 98-107 MMOL/L Carbon Dioxide Level 24 21-32 MMOL/L Anion Gap 9 5-14 MMOL/L Blood Urea Nitrogen 19 H 7-18 MG/DL Creatinine 0.95 0.60-1.30 MG/DL Estimat Glomerular Filtration Rate 89 BUN/Creatinine Ratio 20 Glucose Level 118 H 70-105 MG/DL Calcium Level 10.5 H 8.5-10.1 MG/DL Corrected Calcium 10.4 H 8.5-10.1 MG/DL Total Bilirubin 0.4 0.1-1.0 MG/DL Aspartate Amino Transf (AST/SGOT) 32 5-34 U/L Alanine Aminotransferase (ALT/SGPT) 51 0-55 U/L Alkaline Phosphatase 69 40-136 U/L Total Protein 7.2 6.4-8.2 GM/DL Albumin 4.1 3.2-4.5 GM/DL Lipase 47 8-78 U/L Urine Color YELLOW Urine Clarity CLEAR Urine pH 6.5 5-9 Urine Specific [place] <=1.005 1.016-1.022 Urine Protein TRACE H NEGATIVE Urine Glucose (UA) NEGATIVE NEGATIVE Urine Ketones NEGATIVE NEGATIVE Urine Nitrite NEGATIVE NEGATIVE Urine Bilirubin NEGATIVE NEGATIVE Urine Urobilinogen 0.2 < = 1.0 MG/DL Urine Leukocyte Esterase NEGATIVE NEGATIVE Urine RBC (Auto) NEGATIVE NEGATIVE Urine RBC RARE /HPF Urine WBC 0-2 /HPF Urine Squamous Epithelial Cells 0-2 /HPF Urine Crystals NONE /LPF Urine Bacteria NEGATIVE /HPF Urine Casts NONE /LPF Urine Mucus NEGATIVE /LPF Urine Culture Indicated NO My Orders Orders - OTONIEL DE LA CRUZ WAIT STAFF Ua Culture If Indicated (03/31/23 13:26) Comprehensive Metabolic Panel (03/31/23 13:41) Lipase (03/31/23 13:41) Ed Iv/Invasive Line Start (03/31/23 13:41) Cbc With Automated Diff (03/31/23 13:41) Ct Abdomen/Pelvis W (03/31/23 13:41) Fentanyl Inj (Sublimaze Injection) (03/31/23 13:45) Iohexol Injection (Omnipaque 350 Mg/Ml 1 (03/31/23 13:45) Received Contrast (Hold Metformin- Contr (03/31/23 13:45) Ns (Ivpb) (Sodium Chloride 0.9% Ivpb Bag (03/31/23 13:45) Ns Iv 1000 Ml (Sodium Chloride 0.9%) (03/31/23 14:45) Medications Given in ED Current Medications Medications Dose Ordered Sig/Kobi Route Start Time Stop Time Status Last Admin Dose Admin Fentanyl Citrate 50 mcg ONCE ONCE IVP 03/31/23 13:45 03/31/23 13:46 DC 03/31/23 14:04 50 MCG Iohexol 100 ml ONCE ONCE IV 03/31/23 13:45 03/31/23 13:46 DC 03/31/23 14:11 80 ML Sodium Chloride 100 ml ONCE ONCE IV 03/31/23 13:45 03/31/23 13:46 DC 03/31/23 14:11 100 ML Vital Signs/I&O 03/31/23 03/31/23 13:21 16:23 Temp 36.6 Pulse 85 84 Resp 18 16 B/P (MAP) 121/80 (94) 147/94 Pulse Ox 95 97 O2 Delivery Room Air Room Air Blood Pressure Mean: 94 Progress Progress Note : Progress Note Patient seen and evaluated, resting comfortably in bed, no acute distress. Based on exam and symptoms, work-up initiated including CBC, CMP, lipase, CT abdomen pelvis. Fentanyl ordered. [address] reviewed. CBC grossly normal. CMP shows slightly elevated BUN 19, glucose 118, slightly elevated calcium 10.5. Lipase normal. Urinalysis normal. CT shows large left inguinal hernia with multiple loops of small bowel and colon present in the inguinal canal and scrotum. Small bowel loops are distended with small bowel feces sign and surrounding inflammatory stranding which suggest chronic partial obstruction and likely some mild strangulation. I called and spoke with Dr. Call, surgery, regarding CT results. Since patient is not having any pain at the site of the hernia and in his scrotum, Dr. Call agrees that patient can be followed up outpatient in the clinic tomorrow. Results discussed with patient. Patient instructed to call the clinic first thing in the morning and that Dr. Call wants to see him tomorrow. Will discharge after IV fluids are completed. Discharge instructions and return precautions provided. Diagnostic Imaging Diagonstic Imaging: CT Plain Films/CT/US/NM/MRI: abdomen, pelvis Comments [facility], [place] NAME: RYAN RAYMOND [facility] REC#: [id number] PT STATUS: REG ER : 1955 PHYSICIAN: OTONIEL DE LA CRUZ APRN ADMIT DATE: 03/31/23/ER Signed Date of Exam:03/31/23 CT ABDOMEN/PELVIS W EXAMINATION: CT abdomen and pelvis with intravenous contrast. TECHNIQUE: Multiple contiguous axial images were obtained through the abdomen and pelvis after the uneventful administration of intravenous contrast. All CT scans use one or more of the following dose optimizing techniques: automated exposure control, MA and/or KvP adjustment based on patient size and exam type or iterative reconstruction. HISTORY: Generalized abdominal pain. COMPARISON: 07/14/2020. FINDINGS: Lung bases: The lung bases are clear. Solid organs: The liver is normal without focal lesion. The gallbladder is surgically absent. There is no biliary ductal dilation. Pancreas is normal. Spleen is normal. There is mild nodular thickening of both adrenal glands, unchanged. Bilateral renal cysts which require no follow-up. No hydronephrosis. Bowel: The stomach and small bowel are normal without obstruction. Multiple loops of colon and small bowel within a large left inguinal hernia. The small bowel within the hernia is dilated with small bowel feces sign and a transition point at the origin of the hernia. There is surrounding inflammatory stranding as well. There are no secondary signs of acute appendicitis. Peritoneum: There is no intraperitoneal free fluid or free air. No suspicious lymphadenopathy. Vasculature: Calcification of the aorta without aneurysm. Musculoskeletal: Degenerative changes of the spine without suspicious osseous lesion or compression fracture. Large left inguinal hernia containing multiple loops of small bowel and colon, as discussed above. There is a right-sided fat-containing inguinal hernia as well. Pelvis: The prostate gland is normal. Prominent filling defect along the posterior urinary bladder may relate to a prominent median lobe of the prostate gland. Finding of a similar appearance on 07/14/2020. IMPRESSION: Large left inguinal hernia with multiple loops of small bowel and colon present within the inguinal canal and scrotum. The small bowel loops are distended with small bowel feces sign and surrounding inflammatory stranding suggesting chronic partial obstruction and likely some mild strangulation. Recommend correlation with physical exam. Dictated by: Dictated on workstation # [id number] Dict: 03/31/23 1446 Trans: 03/31/23 1505 [facility] [id number] Interpreted by: AUSTIN ANDINO DO Electronically signed by: AUSTIN ANDINO DO 03/31/23 1505 Departure Impression Primary Impression: Inguinal hernia Disposition: 01 HOME, SELF-CARE Condition: Stable Departure-Patient Inst. Decision time for Depature: 16:12 Referrals: ELENA CALL HOLLY R MD (PCP/Family) Primary Care Physician Patient Instructions: Groin hernias Add. Discharge Instructions: Call Dr. Call's office first thing in the morning, he wants to see you in the office tomorrow. Return for severe pain, inability to have a bowel movement, if you are unable to pass gas, or any other new, concerning, or worsening symptoms. All discharge instructions reviewed with patient and/or family. Voiced understanding. OTONIEL DE LA CRUZ WAIT STAFF Mar 31, 2023 13:47
[2023-03-31 13:55] LABS: ALBUMIN 4.1 GM/DL (3.2-4.5)
[2023-03-31 13:56] LABS: BASOPHILS # (AUTO) 0.1 10^3/uL (0.0-0.1); BASOPHILS % (AUTO) 1 % (0-10); CALCIUM 10.5 MG/DL (8.5-10.1); EOSINOPHILS # (AUTO) 0.3 10^3/uL (0.0-0.3); EOSINOPHILS % (AUTO) 3 % (0-10); HEMATOCRIT 44 % (40-54); HEMOGLOBIN 14.7 g/dL (13.3-17.7); LYMPHOCYTES # (AUTO) 1.4 10^3/uL (1.0-4.0); LYMPHOCYTES % (AUTO) 14 % (12-44); MEAN CORPUSCULAR HEMOGLOBIN 28 pg (25-34); MEAN CORPUSCULAR HGB CONC 33 g/dL (32-36); MEAN CORPUSCULAR VOLUME 85 fL (80-99); MONOCYTES # (AUTO) 0.7 10^3/uL (0.0-1.0); MONOCYTES % (AUTO) 7 % (0-12); NEUTROPHILS # (AUTO) 7.8 10^3/uL (1.8-7.8); NEUTROPHILS % (AUTO) 75 % (42-75); PLATELET COUNT 168 10^3/uL (130-400); WHITE BLOOD COUNT 10.4 10^3/uL (4.3-11.0)
[2023-03-31 13:57] LABS: TOTAL PROTEIN 7.2 GM/DL (6.4-8.2)
[2023-03-31 13:59] LABS: BILIRUBIN,TOTAL 0.4 MG/DL (0.1-1.0)
[2023-03-31 14:01] LABS: CREATININE SERUM 0.95 MG/DL (0.60-1.30)
[2023-03-31] MEDS ORDERED: NS IV 1000 ML 1,000 ML IV SCH (14:45)
--- NOTE | 2023-03-31 15:03 | Diagnostic Imaging Report ---
EXAMINATION: CT abdomen and pelvis with intravenous contrast. TECHNIQUE: Multiple contiguous axial images were obtained through the abdomen and pelvis after the uneventful administration of intravenous contrast. All CT scans use one or more of the following dose optimizing techniques: automated exposure control, MA and/or KvP adjustment based on patient size and exam type or iterative reconstruction. HISTORY: Generalized abdominal pain. COMPARISON: 07/14/2020. FINDINGS: Lung bases: The lung bases are clear. Solid organs: The liver is normal without focal lesion. The gallbladder is surgically absent. There is no biliary ductal dilation. Pancreas is normal. Spleen is normal. There is mild nodular thickening of both adrenal glands, unchanged. Bilateral renal cysts which require no follow-up. No hydronephrosis. Bowel: The stomach and small bowel are normal without obstruction. Multiple loops of colon and small bowel within a large left inguinal hernia. The small bowel within the hernia is dilated with small bowel feces sign and a transition point at the origin of the hernia. There is surrounding inflammatory stranding as well. There are no secondary signs of acute appendicitis. Peritoneum: There is no intraperitoneal free fluid or free air. No suspicious lymphadenopathy. Vasculature: Calcification of the aorta without aneurysm. Musculoskeletal: Degenerative changes of the spine without suspicious osseous lesion or compression fracture. Large left inguinal hernia containing multiple loops of small bowel and colon, as discussed above. There is a right-sided fat-containing inguinal hernia as well. Pelvis: The prostate gland is normal. Prominent filling defect along the posterior urinary bladder may relate to a prominent median lobe of the prostate gland. Finding of a similar appearance on 07/14/2020. IMPRESSION: Large left inguinal hernia with multiple loops of small bowel and colon present within the inguinal canal and scrotum. The small bowel loops are distended with small bowel feces sign and surrounding inflammatory stranding suggesting chronic partial obstruction and likely some mild strangulation. Recommend correlation with physical exam. Dictated by: Dictated on workstation # [id number]
[2023-03-31 15:16] LABS: BILIRUBIN,URINE NEGATIVE (NEGATIVE); CLARITY,URINE CLEAR; COLOR,URINE YELLOW; GLUCOSE, URINE (UA) NEGATIVE (NEGATIVE); KETONES,URINE NEGATIVE (NEGATIVE); LEUKOCYTE ESTERASE ,URINE NEGATIVE (NEGATIVE); NITRITE,URINE NEGATIVE (NEGATIVE); PH,URINE 6.5 (5-9); PROTEIN,URINE TRACE (NEGATIVE)
[2023-03-31 15:29] LABS: BACTERIA,URINE NEGATIVE /HPF; RBC,URINE RARE /HPF; SQUAMOUS EPITHELIAL CELL,UR 0-2 /HPF; WBC,URINE 0-2 /HPF
[2023-03-31 16:23] VITALS: BP 147/94
== END 2023-03-31 16:23 | disposition home or self-care (01) ==
LOC: EDUNIT# 13:13 → ER 13:15
DX: K40.90 Unilateral inguinal hernia, without obstruction or gangrene, not specified as recurrent (principal); R79.89 Other specified abnormal findings of blood chemistry; E83.52 Hypercalcemia; Z90.49 Acquired absence of other specified parts of digestive tract; Z87.891 Personal history of nicotine dependence
CPT/HCPCS: 36415; 74177; 80053; 81000; 83690; 85025

== ENCOUNTER 2023-04-04 05:25 | Outpatient (CLI) | payer MEDICARE, MEDICAID ==
[~2023-04-04] VITALS: Ht 175.2 cm; Wt 106.6 kg
== END 2023-04-04 17:13 | disposition home or self-care (01) ==
LOC: PREOP 05:25
PROVIDERS: ATTEND Surgery
DX: Z01.818 Encounter for other preprocedural examination (principal)

== ENCOUNTER 2023-04-11 07:39 | Day surgery (SDC) | payer MEDICARE, MEDICAID ==
[2023-04-11] VITALS (14 sets, daily range): BP systolic 78–142; BP diastolic 41–80
[~2023-04-11] VITALS: Ht 175 cm; Wt 106.6 kg
[2023-04-11] MEDS ORDERED: SEVOFLURANE (ULTANE) 15 ML INHAL SOLN ONE (07:58)
[2023-04-11] MEDS ORDERED: ROCURONIUM 50 MG/5 ML (ZEMURON) VIAL IV ONE (07:58)
[2023-04-11] MEDS ORDERED: LIDOCAINE PF 2% 5 ML (XYLOCAINE) VIAL ONE (07:58)
[2023-04-11] MEDS ORDERED: fentaNYL INJ 100 MCG/2 ML AMP ONE (07:58)
[2023-04-11] MEDS ORDERED: proPOfol 200 MG/20 ML (DIPRIVAN) VIAL IV ONE (07:58)
[2023-04-11] MEDS ORDERED: ONDANSETRON 4 MG/2 ML (SDV) Z0FRAN ONE (07:58)
[2023-04-11] MEDS ORDERED: MIDAZOLAM 2 MG/2 ML (VERSED) VIAL ONE (07:59)
[2023-04-11] MEDS ORDERED: BUP/EPI 0.5% 1:200,000 (SENSORCAINE) 30 ML VIAL ONE (08:11)
--- NOTE | 2023-04-11 08:17 | Progress Note-Pre Operative ---
Pre-Operative Progress Note Date of Available H&P: Apr 11, 2023 Date H&P Reviewed: Apr 11, 2023 Time H&P Reviewed: 08:13 History & Physical: H&P Reviewed, Patient Examed, No changes noted Pre-Operative Diagnosis: incarcerated left inguinal hernia ELENA CALL DO Apr 11, 2023 08:17
[2023-04-11] MEDS ORDERED: ceFAZolin INJECTION 2,000 MG in NS (IVPB) 50 ML IV ONE (08:30)
[2023-04-11] MEDS: LACTATED RINGERS 1,000 ML IV PRN ×2 (08:41→10:22)
[2023-04-11] MEDS ORDERED: NEOSTIGMINE 3 MG/3 ML VIAL ONE (11:33)
[2023-04-11] MEDS ORDERED: GLYCOPYRROLATE 0.2 MG/ML (ROBINUL) 2 ML VIAL ONE (11:33)
[2023-04-11] MEDS ORDERED: ACHD5005 PO (12:00)
[2023-04-11] MEDS ORDERED: DOCU-143 PO (12:00)
--- NOTE | 2023-04-11 12:01 | Anesthesia-General Post-Op ---
General Patient Condition Mental Status/LOC: Same as Preop Cardiovascular: Satisfactory Nausea/Vomiting: Absent Respiratory: Satisfactory Pain: Controlled Complications: Absent Post Op Complications Complications None Follow Up Care/Instructions Patient Instructions None needed. Anesthesia/Patient Condition Patient Condition Patient is doing well, no complaints, stable vital signs, no apparent adverse anesthesia problems. No complications reported per nursing. KALIN LIN CRNA Apr 11, 2023 12:01
--- NOTE | 2023-04-11 12:02 | Discharge Inst-Simple/Standard ---
Discharge Inst-Standard Discharge Medications New, Converted or Re-Newed RX: Transmitted to Pharmacy Patient Instructions/Follow Up Plan of Care/Instructions/FU: 2 weeks jose Barros) Activity as Tolerated: No Discharge Diet: Regular Diet Other Inst to Patient Follow up Appt: Make appointment for 2 week. Instructions: No lifting greater than 10 pounds. No strenuous activity. May shower in 24 hours, no tub bath or soaking. Use incentive spirometer at home as directed. No Smoking Skin/Wound Care: You have special glue over your incision that will fall off on it's own. Symptoms to Report: Appetite Changes, Extremity Discoloration, Numbness/Tingling, Swelling In creased, Bleeding Excessive, Eyesight Changes, Pain Increased, Urine Color Change, Constipation(Persistent), Fever over 101 degree F, Pain/Pressure in chest, Urinating Difficulty, Cough Up/Vomit Blood, Heart Beat Irreg/Pounding, Pain/Pressure in jaw, Vaginal Bleeding Increase, Cramps in feet or legs, Lightheadedness, Pain/Pressure in shoulder, Diarrhea(Persistent), Memory Changes Suddenly, Questions/Concerns, Weight gain consecutive days, Dizziness/Fainting, Nausea/Vomiting, Shortness of Breath, Weight gain over 2 pounds If questions or concerns contact your physician Or seek help at emergency department. ELENA CALL DO Apr 11, 2023 12:02
--- NOTE | 2023-04-11 12:03 | Progress Note-Post Operative ---
Post-Operative Progess Note Surgeon (s)/Geometrician (s) Surgeon ELENA CALL DO Geometrician: Dr. Stock Pre-Operative Diagnosis incarcerated left inguinal hernia Post-Operative Diagnosis incarcerated left indirect and direct inguinal hernia Procedure & Operative Findings Date of Procedure 04/11/23 Procedure Performed/Findings open left incarcerated direct and indirect inguinal hernia Anesthesia Type general Estimated Blood Loss Estimated blood loss (mL): minimal Specimens/Packing Specimens Removed none ELENA CALL DO Apr 11, 2023 12:03
[2023-04-11] MEDS ORDERED: morphine INJ 10 MG/ML 1ML (SYR OR VIAL) IVP ONE (12:15)
[2023-04-11] MEDS: LACTATED RINGERS 1,000 ML IV SCH (17:10)
[2023-04-11] MEDS: fentaNYL INJ 100 MCG/2 ML AMP IVP PRN (21:23)
[2023-04-11] MEDS ORDERED: RT-ALBUTEROL SULF 2.5 MG/3 ML PRE-MIX VIAL INH PRN (22:15)
[2023-04-11] MEDS: ceFAZolin INJECTION 2,000 MG in NS (IVPB) 50 ML IV SCH (22:16)
[2023-04-12] VITALS: BP 112/71
[2023-04-12] MEDS: LACTATED RINGERS 1,000 ML IV SCH ×3 (03:33→23:25)
[2023-04-12 04:00] VITALS: BP 126/67
[2023-04-12] MEDS: ceFAZolin INJECTION 2,000 MG in NS (IVPB) 50 ML IV SCH (05:32)
[2023-04-12] MEDS: HYDROcodone/APAP 5 MG/325 MG (LORTAB) TAB PO PRN ×3 (05:37→20:28)
[2023-04-12] MEDS ORDERED: LIDOCAINE UROJET 2% GEL 10 ML PKG TOP ONE (06:30)
--- NOTE | 2023-04-12 06:54 | OPERATIVE REPORT ---
DATE OF SERVICE: 04/11/2023 PREOPERATIVE DIAGNOSIS: Incarcerated left inguinal hernia. POSTOPERATIVE DIAGNOSIS: Incarcerated left indirect and direct inguinal hernia. PROCEDURE: Open left incarcerated direct and indirect inguinal hernia. SURGEON: Elena Reyes DO PREDATORY HUNTER: Gary Stock DO., assisted in retraction, dissection, and closure and identification. INDICATIONS: The patient is a 67-year-old male with a left inguinal hernia that was incarcerated, [ ] large amount of bowel. He understands risks and benefits of procedure and wished to proceed. Consent was signed and in chart. DESCRIPTION OF PROCEDURE: The patient was taken to the operating suite where he was prepped and draped in sterile fashion. Timeout was performed. Local anesthetic was infiltrated above the left lower abdomen. Cautery was used to dissect down through subcutaneous tissues to the external oblique. We inspected the external ring was blown out with significant hernia contents going down to the scrotum. This was began to be bluntly dissected around. The hernia sac was opened with significant amount of omental fat and colon present within the hernia sac. The colon was then continued to be dissected out of the scrotum, which was approximately 2.5 feet of colon was able to be brought out through the incision after careful dissection. It was brought out. The external oblique had to be opened laterally and the internal ring was able to be visualized. Very [ ] with the hernia contents through this, the internal ring was opened and the colon was then continued to be mobilized and reduced. During trying to mobilize the colon, there were small rents in the mesentery, which was created a little bit of oozing. By doing this, the colon was able to be reduced. The spermatic cord was able to be dissected around and a Jaden drain was placed around it. The hernia sac was then reduced. There was a direct defect as well. The peritoneum was closed with 2-0 Vicryl. The transversalis fascia was then sutured to the shelving edge of the external oblique with a 2-0 Vicryl. This was after reducing the direct defect as well. A ProGrip mesh was then secured to Bryan's ligament and then incorporated around the spermatic cord and tucked under the external oblique. Lots of irrigation and suction was used. The external oblique was then closed using 3-0 Vicryl in a running fashion. Subcutaneous tissue was then reapproximated and the skin was then closed using 4-0 Monocryl in a running subcuticular fashion. The area was washed and dried and skin Affix was placed over the incisions. The patient tolerated the procedure well without any complications, taken to recovery room in stable condition. Job ID: [id number] DocumentID: [id number] Dictated Date: 04/11/2023 21:40:32 Intertype Operator Date: 04/12/2023 06:52:00 Dictated By: ELENA REYES DO
[2023-04-12] MEDS: TAMSULOSIN 0.4 MG (FLOMAX) CAP PO SCH (08:03)
[2023-04-12] MEDS: fentaNYL INJ 100 MCG/2 ML AMP IVP PRN (08:03)
[2023-04-12 08:54] VITALS: BP 119/74
--- NOTE | 2023-04-12 10:29 | Consultation - Hospitalist ---
HPI History of Present Illness: HPI/Chief Complaint Chief complaint: Postop complication with hypoxia and hypotension HPI: This is a 67-year-old male clinic patient of [facility] who I was consulted by Dr. Reyes following an inguinal hernia repair which was very complicated. He did have postop hypotension with hypoxia requiring IV fluid and oxygen supplement ation. Patient is a poor historian and really not forthcoming with any details. He also told me that he wanted to eat he had one of the nurses because they touched his postop site. Labs reviewed. Source: patient, RN/MD, old records Exam Limitations: no limitations Date Seen 04/12/23 Attending Physician Christiane Delgado MD PCP Admitting Physician: Attending Physician: Roger Reyes DO Referring Physician Date of Admission Home Medications & Allergies Home Medications Reviewed patient Home Medication Reconciliation performed by pharmacy medication reconciliations orthotic technician and/or nursing. Patients Allergies have been reviewed. Allergies Allergies Coded Allergies oxycodone (Verified Adverse Reaction, Unknown, 04/04/23) Past Ynsgvxi-Vnbbjj-Lrzlcb Hx Patient Social History Marrital Status: single Employed/Student: unemployed Smoking Status: Former Smoker Immunizations Up To Date First/Initial COVID19 Vaccinat: NO Second COVID19 Vaccination Deonte: NO Hepatitis A: No Hepatitis B: No Seasonal Allergies Seasonal Allergies: Yes Current Status Primary Language: Uzbek Is interpretation needed?: No Past Medical History Surgeries: Abdominal, Adenoidectomy, Gallbladder, Tonsillectomy COPD Hypertension Sexually Transmitted Disease: No Renal Failure Abdominal Hernia, Gastroesophageal Reflux, Hepatitis Diabetes, Non-Insulin dep Blood Disorders: No Adverse Reaction/Blood Tranf: No PMHx: CAD DMII HTN GERD Cleft palate Inguinal hernia PSurgHx: PSurgHx: Oral surgeries for cleft lip/palate Heart cath Family Medical History Cardiovascular disease 19 FATHER Cerebral embolism G8 BROTHER Lung cancer 19 FATHER Myocardial infarction G8 BROTHER, Onset:50's - 60 G8 BROTHER, Onset:50's - 60 No Pertinent Family Hx, Heart Disease, Cancer, CAD Under 55 Years Old Review of Systems Constitutional: see HPI Gastrointestinal: abdominal pain Physical Exam Physical Exam Vital Signs Vital Signs - First Documented 04/11/23 08:05 Temp 36.7 Pulse 79 Resp 20 B/P (MAP) 142/80 (100) Pulse Ox 96 O2 Delivery Room Air Capillary Refill : Less Than 3 Seconds Height, Weight, BMI Height: 5'9.00" Weight: 215lbs. 8.0oz. [id number]; 34.80 BMI Method:Stated General Appearance: No Apparent Distress, WD/WN, Chronically ill, Obese Eyes: Bilateral Eye Normal Inspection, Bilateral Eye PERRL HEENT: PERRL/EOMI, Normal ENT Inspection, Pharynx Normal Neck: Full Range of Motion, Normal Inspection, Non Tender, Supple, Carotid Bruit Respiratory: Chest Non Tender, Lungs Clear, Normal Breath Sounds, No Accessory Muscle Use, No Respiratory Distress Cardiovascular: Regular Rate, Rhythm, No Edema, No Gallop, No JVD, No Murmur, Normal Peripheral Pulses Gastrointestinal: No Organomegaly, No Pulsatile Mass, Abnormal Bowel Sounds Back: Normal Inspection, No CVA Tenderness, No Vertebral Tenderness Extremity: Normal Capillary Refill, Normal Inspection, Normal Range of Motion, Non Tender, No Calf Tenderness, No Pedal Edema Neurologic/Psychiatric: Alert, Oriented x3, No Motor/Sensory Deficits, Normal Mood/Affect Skin: Normal Color, Warm/Dry Lymphatic: No Adenopathy Results Results/Procedures Labs Laboratory Tests 04/12/23 10:41 Patient resulted labs reviewed. Assessment/Plan Assessment and Plan Assess & Plan/Chief Complaint Assessment: Status post complicated inguinal hernia repair Postop hypotension requiring IV fluid Postop hypoxia requiring oxygen supplementation Former smoker Diabetes Hypertension as an outpatient Cognitive deficit? Plan: Supportive care IV fluids Monitor blood pressure Monitor oxygen ROSA WHITE DO Apr 12, 2023 10:29
[2023-04-12 10:50] LABS: BASOPHILS % (AUTO) 0 % (0-10); EOSINOPHILS # (AUTO) 0.1 10^3/uL (0.0-0.3); EOSINOPHILS % (AUTO) 1 % (0-10); HEMATOCRIT 39 % (40-54); HEMOGLOBIN 12.7 g/dL (13.3-17.7); LYMPHOCYTES # (AUTO) 1.2 10^3/uL (1.0-4.0); LYMPHOCYTES % (AUTO) 14 % (12-44); MEAN CORPUSCULAR HEMOGLOBIN 28 pg (25-34); MEAN CORPUSCULAR HGB CONC 33 g/dL (32-36); MEAN CORPUSCULAR VOLUME 86 fL (80-99); MEAN PLATELET VOLUME 10.8 fL (9.0-12.2); MONOCYTES # (AUTO) 0.9 10^3/uL (0.0-1.0); MONOCYTES % (AUTO) 11 % (0-12); NEUTROPHILS # (AUTO) 6.7 10^3/uL (1.8-7.8); NEUTROPHILS % (AUTO) 74 % (42-75); PLATELET COUNT 141 10^3/uL (130-400)
[2023-04-12 11:03] LABS: ALBUMIN 3.4 GM/DL (3.2-4.5); POTASSIUM 3.8 MMOL/L (3.6-5.0)
[2023-04-12 11:04] LABS: CALCIUM 9.6 MG/DL (8.5-10.1)
[2023-04-12 11:06] LABS: TOTAL PROTEIN 6.2 GM/DL (6.4-8.2)
[2023-04-12 11:07] LABS: BILIRUBIN,TOTAL 0.5 MG/DL (0.1-1.0)
[2023-04-12 11:09] LABS: CREATININE SERUM 0.97 MG/DL (0.60-1.30)
[2023-04-12 12:21] VITALS: BP 142/78
--- NOTE | 2023-04-12 13:38 | Physical Therapy Evaluation ---
PT Evaluation-General Medical Diagnosis Admission Date April 11, 2023 Medical Diagnosis: left inguinal hernia Onset Date: Apr 11, 2023 Therapy Diagnosis Therapy Diagnosis: debility/weakness Height/Weight Height (Feet): 5 Height (Inches): 9.00 Weight (Pounds): 215 Weight (Ounces): 8.0 Precautions Precautions/Isolations: Standard Precautions Referral Physician: Kiley Reason for Referral: Evaluation/Treatment Medical History Pertinent Medical History: COPD, DM, GERD, HTN Current History s/p hernia repair Reviewed History: Yes Social History Entry Into Home: Stairs With Railing PT Steps Into Home: 8 Prior Prior Level of Function SCALE: Activities may be completed with or without assistive devices. 7-Qnbeavabpv-fowszgx completes the activity by him/herself with no assistance from a helper. 5-Set-up or Clean-up Assistance-helper sets up or cleans up; patient completes activity. [place] assists only prior to or following the activity. 4-Supervision or Touching Assistance-helper provides verbal cues and/or touching/steadying and/or contact guard assistance as patient completes activity. Assistance may be provided throughout the activity or intermittently. 3-Partial/Moderate Assistance-helper does LESS THAN HALF the effort. [place] lifts, holds or supports trunk or limbs, but provides less than half the effort. 2-Substantial/Maximal Assistance-helper does MORE THAN HALF the effort. [place] lifts or holds trunk or limbs and provides more than half the effort. 5-Issfmocet-kpwpow does ALL the effort. Patient does none of the effort to complete the activity. Or, the assistance of 2 or more helpers is required for the patient to complete the activity. If activity was not attempted, code reason: 7-Patient Refused. 9-Not Applicable-not attempted and the patient did not perform the activity before the current illness, exacerbation or injury. 10-Not Attempted due to Environmental Limitations-(lack of equipment, weather restraints, etc.). 88-Not Attempted due to Medical Conditions or Safety Concerns. Bed Mobility: 6 Transfers (B,C,W/C): 6 Gait: 6 Stairs: 6 Indoor Mobility (Ambulation): Independent Stairs: Independent Prior Devices Use: None PT Evaluation-Current Subjective Patient is very reluctant to participate with PT, however, after much encouragement, patient agrees. Pain Numeric Pain Scale: 10-Worst Possible Pain Location: Medial, Lower Location Body Site: Abdomen Pain Description: Acute Objective Patient Orientation: Normal For Age Attachments: Oliver Catheter, IV ROM/Strength ROM Lower Extremities bilateral LE WFL Strength Lower Extremities 4/5 grossly bilateral LE all planes Integumentary/Posture Integumentary refer to nursing notes Bladder Incontinence: Oliver Cath Posture trunk flexed posture in stand with FWW due to abdominal discomfort Neuromuscular (Tone, Coordination, Reflexes) grossly intact with all Sensory Vision: Functional Hearing: Impaired Transfers Lying to Sitting/Side of Bed(Q: 3 Sit to Stand (QC): 3 Chair/Tov-pr-Aoowu Xfer(QC): 3 Gait Mode of Locomotion: Walk Anticipated Mode of Locomotion: Walk Walk 10 feet (QC): 4 Walk 50 ft with 2 Turns(QC): 7 Gait Assistive Device: FWW Comments/Gait Description very slow, shuffle gait sequence Balance Sitting Static: Normal Sitting Dynamic: Normal Standing Static: Fair Standing Dynamic: Fair Assessment/Needs Patient will benefit from skilled PT to address functional strength and mobility to improve current LOF to safely return to home at maximum LOF. Rehab Potential: Fair PT Flue Blower Goals Flue Blower Goals PT Flue Blower Goals Time Frame: Apr 20, 2023 Roll Left & Right (QC): 6 Sit to Lying (QC): 6 Lying-Sitting on Side/Bed(QC): 6 Sit to Stand (QC): 6 Chair/Vsz-fw-Umlty Xfer(QC): 6 Toilet Transfer (QC): 6 Walk 10 feet (QC): 6 Walk 50ft with 2 Turns (QC): 6 Walk 150 ft (QC): 6 1 Step (curb) (QC): 4 4 Steps (QC): 4 12 Steps (QC): 4 PT Plan Problem List Problem List: Activity Tolerance, Functional Strength, Safety, Balance, Gait, Transfer, Bed Mobility Treatment/Plan Treatment Plan: Continue Plan of Care Treatment Plan: Bed Mobility, Education, Functional Activity Kiley, Functional Strength, Gait, Safety, Therapeutic Exercise, Transfers Treatment Duration: Apr 20, 2023 Frequency: 6 times per week Estimated Hrs Per Day: .25 hour per day Patient and/or Family Agrees t: Yes Time Time In: 1245 Time Out: 1305 DATE: Apr 12, 2023 Total Billed Treatment Time: 20 Total Billed Treatment 1 visit EVMod 20 min ARTURO SCHOFIELD PT Apr 12, 2023 13:38
--- NOTE | 2023-04-12 14:42 | Occupational Therapy Eval ---
OT Evaluation-General/PLF Medical Diagnosis Admission Date Medical Diagnosis: left inguinal hernia Onset Date: Apr 11, 2023 Therapy Diagnosis Therapy Diagnosis: weakness, post op restrictions w/ ADLS Height/Weight Height (Feet): 5 Height (Inches): 9.00 Weight (Pounds): 215 Weight (Ounces): 8.0 Precautions Precautions/Isolations: Standard Precautions Weight Bear Status Weight Bearing Restriction: Full Weight Bearing Location Restriction: LE Bilateral WBS (Ord/Comment): lifting post op restrictions Referral Physician: Kiley Referral Reason: Evaluation/Treatment Medical History Pertinent Medical History: COPD, DM, GERD, HTN Reviewed History: Yes Social History Home: Single Level (2 bedroom) Current Living Status: Spouse Entry Into Home: Stairs With Railing Steps Into Home: 8 ADL-Prior Level of Function SCALE: Activities may be completed with or without assistive devices. 5-Jbangxzqvt-fvgkwgg completes the activity by him/herself with no assistance from a helper. 5-Set-up or Clean-up Assistance-helper sets up or cleans up; patient completes activity. [place] assists only prior to or following the activity. 4-Supervision or Touching Assistance-helper provides verbal cues and/or touching/steadying and/or contact guard assistance as patient completes activity. Assistance may be provided throughout the activity or intermittently. 3-Partial/Moderate Assistance-helper does LESS THAN HALF the effort. [place] lifts, holds or supports trunk or limbs, but provides less than half the effort. 2-Substantial/Maximal Assistance-helper does MORE THAN HALF the effort. [place] l ifts or holds trunk or limbs and provides more than half the effort. 9-Kuhdkbihu-cftwmd does ALL the effort. Patient does none of the effort to complete the activity. Or, the assistance of 2 or more helpers is required for the patient to complete the activity. If activity was not attempted, code reason: 7-Patient Refused. 9-Not Applicable-not attempted and the patient did not perform the activity before the current illness, exacerbation or injury. 10-Not Attempted due to Environmental Limitations-(lack of equipment, weather restraints, etc.). 88-Not Attempted due to Medical Conditions or Safety Concerns. Self Care: Independent Functional Cognition: Independent DME/Equipment: Grab Bars, Tub/Shower DME/Equipment Comments reach GB from standard toilet Drive Self: No (friend) OT Current Status Subjective Agreeable to therapy, visitor present Pain Numeric Pain Scale: 9 (says the pain medication is not working) Mental Status/Objective Patient Orientation: Person, Place ([facility]), Time, Situation Attachments: IV, Oxygen (2 liters NC not used at home) Current Glasses/Contacts: Yes (bifocal not here) Hearing Aids: No Dentures/Partials: No (thrown away) Upper Extremity ROM BUE ROM WFLS LUE slow to range Upper Extremity Coordination Mild dexterity issues at times ADL-Treatment Eating (QC): 5 Oral Hygiene (QC): 5 Shower/Bathe Self (QC): 88 Upper Body Dressing (QC): 4 Lower Body Dressing (QC): 2 On/Off Footwear (QC): 2 Toileting Hygiene (QC): 2 Education OT Patient Education: Correct positioning, Modified ADL techniques, Progress toward Goal/Update tx plan, Purpose of tx/functional activities, Reviewed precautions, Rehab process, Safety issues, Transfer techniques, Use of adapted equipment Teaching Recipient: Patient Teaching Methods: Demonstration, Discussion Response to Teaching: Verbalize Understanding, Reinforcement Needed OT Assisted Goals Assisted Goals Eating (QC): 6 Oral Hygiene (QC): 6 Toileting Hygiene (QC): 6 Shower/Bathe Self (QC): 6 Upper Body Dressing (QC): 6 Lower Body Dressing (QC): 6 On/Off Footwear (QC): 6 1=Demonstrate adherence to instructed precautions during ADL tasks. 2=Patient will verbalize/demonstrate understanding of assistive devices/modifications for ADL. 3=Patient will improve strength/tolerance for activity to enable patient to perform ADL's. OT Education/Plan Problem List/Assessment Assessment: Decreased Activ Tolerance, Decreased UE Strength, Impaired Funct Balance, Impaired Self-Care Skills Discharge Recommendations Plan/Recommendations: Continue POC Treatment Plan/Plan of Care Patient would benefit from OT for education, treatment and training to promote independence in ADL's, mobility, safety and/or upper extremity function for ADL's. Plan of Care: ADL Retraining, Functional Mobility, Group Exercise/Act as Ind, UE Funct Exercise/Act Treatment Duration: Apr 19, 2023 Frequency: 3 times per week Estimated Hrs Per Day: .25 hour per day Agreement: Yes Rehab Potential: Fair Time Start Time: 14:00 Stop Time: 14:15 DATE: Apr 12, 2023 Total Time Billed (hr/min): 15 Billed Treatment Time EVM 15 min YANET JERONIMO OT Apr 12, 2023 14:42
[2023-04-12 16:00] VITALS: BP 138/75
[2023-04-12 19:00] VITALS: BP 126/78
--- NOTE | 2023-04-12 19:11 | Progress Note - Surgery ---
Subjective Date Seen by a Provider: Apr 12, 2023 Time Seen by a Provider: 17:10 Subjective/Events-last exam Patient feeling a little better today. Blood Pressure better. Pain still moderate but better than yesterday. No flatus or bm. Had urinary retention. Using IS minimally. Denies n/v fever sweats chills shortness of breath or chest pain at this time. Objective Exam Vital Signs Date Time Temp Pulse Resp B/P (MAP) Pulse Ox O2 Delivery O2 Flow Rate FiO2 04/12/23 16:00 37.2 82 18 138/75 (96) 97 Room Air 04/12/23 12:21 37.2 84 19 142/78 (99) 96 OxyMask 2.00 04/12/23 09:00 Room Air 04/12/23 08:54 36.9 83 19 119/74 (89) 94 OxyMask 2.00 04/12/23 04:00 37.2 83 18 126/67 (86) 91 OxyMask 2.00 2.00 04/12/23 00:00 36.9 83 18 112/71 (85) 94 OxyMask 2.00 2.00 04/11/23 22:01 37.8 87 93 04/11/23 21:25 OxyMask 2.00 04/11/23 20:01 37.8 87 18 130/71 (90) 93 OxyMask 2.00 I & O 04/12/23 07:00 Intake Total 2780 ml Output Total 551 ml Balance 2229 ml Capillary Refill : Less Than 3 Seconds General Appearance: No Apparent Distress (sitting in chair) HEENT: PERRL/EOMI, Normal ENT Inspection Neck: Normal Inspection Respiratory: Chest Non Tender, No Accessory Muscle Use, No Respiratory Distress Cardiovascular: Regular Rate, Rhythm, No JVD Gastrointestinal: soft, tenderness (incision c/d/i no signs of infection) Extremity: Non Tender, No Calf Tenderness Neurologic/Psychiatric: Alert, Oriented x3 Skin: Normal Color, Warm/Dry Lymphatic: No Adenopathy Results Lab Laboratory Tests 04/12/23 10:41: White Blood Count 9.0, Red Blood Count 4.52, Hemoglobin 12.7L, Hematocrit 39L, Mean Corpuscular Volume 86, Mean Corpuscular Hemoglobin 28, Mean Corpuscular Hemoglobin Concent 33, Red Cell Distribution Width 14.0, Platelet Count 141, Mean Platelet Volume 10.8, Immature Granulocyte % (Auto) 1, Neutrophils (%) (Auto) 74, Lymphocytes (%) (Auto) 14, Monocytes (%) (Auto) 11, Eosinophils (%) (Auto) 1, Basophils (%) (Auto) 0, Neutrophils # (Auto) 6.7, Lymphocytes # (Auto) 1.2, Monocytes # (Auto) 0.9, Eosinophils # (Auto) 0.1, Basophils # (Auto) 0.0, Immature Granulocyte # (Auto) 0.1, Sodium Level 136, Potassium Level 3.8, Chloride Level 103, Carbon Dioxide Level 25, Anion Gap 8, Blood Urea Nitrogen 13, Creatinine 0.97, Estimat Glomerular Filtration Rate 87, BUN/Creatinine Ratio 13, Glucose Level 117H, Calcium Level 9.6, Corrected Calcium 10.1, Total Bilirubin 0.5, Aspartate Amino Transf (AST/SGOT) 34, Alanine Aminotransferase (ALT/SGPT) 61H, Alkaline Phosphatase 63, Total Protein 6.2L, Albumin 3.4 Microbiology 04/11/23 MRSA Screen - Final, Complete MRSA not isolated Assessment/Plan Assessment/Plan Assessment/Plan s/p open left incarcerated direct/indirect inguinal hernia postoperative pain hypotension urinary retention Oliver placed and strarted on flomax pain control ambulate and use IS ELENA CALL DO Apr 12, 2023 19:11
[2023-04-13] VITALS: BP 119/70
[2023-04-13 04:00] VITALS: BP 137/85
[2023-04-13 06:22] LABS: BASOPHILS # (AUTO) 0.1 10^3/uL (0.0-0.1); BASOPHILS % (AUTO) 1 % (0-10); EOSINOPHILS # (AUTO) 0.1 10^3/uL (0.0-0.3); EOSINOPHILS % (AUTO) 2 % (0-10); HEMATOCRIT 37 % (40-54); HEMOGLOBIN 12.1 g/dL (13.3-17.7); LYMPHOCYTES # (AUTO) 1.4 10^3/uL (1.0-4.0); LYMPHOCYTES % (AUTO) 17 % (12-44); MEAN CORPUSCULAR HEMOGLOBIN 28 pg (25-34); MEAN CORPUSCULAR HGB CONC 32 g/dL (32-36); MEAN CORPUSCULAR VOLUME 87 fL (80-99); MEAN PLATELET VOLUME 10.7 fL (9.0-12.2); MONOCYTES # (AUTO) 0.9 10^3/uL (0.0-1.0); MONOCYTES % (AUTO) 11 % (0-12); NEUTROPHILS # (AUTO) 5.8 10^3/uL (1.8-7.8); NEUTROPHILS % (AUTO) 69 % (42-75); PLATELET COUNT 137 10^3/uL (130-400); WHITE BLOOD COUNT 8.4 10^3/uL (4.3-11.0)
[2023-04-13] MEDS: inSUlin ASPART (NovoLOG) 1 UNIT/0.01 ML (CHARGE PER UNIT) SC SCH ×2 (06:23→13:13)
[2023-04-13 06:28] LABS: ALBUMIN 3.3 GM/DL (3.2-4.5); POTASSIUM 3.7 MMOL/L (3.6-5.0)
[2023-04-13 06:30] LABS: CALCIUM 9.4 MG/DL (8.5-10.1)
[2023-04-13 06:31] LABS: TOTAL PROTEIN 6.1 GM/DL (6.4-8.2)
[2023-04-13 06:33] LABS: BILIRUBIN,TOTAL 0.5 MG/DL (0.1-1.0)
[2023-04-13 06:35] LABS: CREATININE SERUM 0.85 MG/DL (0.60-1.30)
--- NOTE | 2023-04-13 06:40 | Progress Note - Hospitalist ---
Subjective HPI/CC On Admission Date Seen by Provider: Apr 13, 2023 Time Seen by Provider: 11:00 Chief complaint: Postop complication with hypoxia and hypotension HPI: This is a 67-year-old male clinic patient of [facility] who I was consulted by Dr. Reyes following an inguinal hernia repair which was very complicated. He did h ave postop hypotension with hypoxia requiring IV fluid and oxygen supplementation. Patient is a poor historian and really not forthcoming with any details. He also told me that he wanted to eat he had one of the nurses because they touched his postop site. Labs reviewed. Subjective/Events-last exam Patient doing well but he does not think he is Oliver catheter will remain at discharge Labs reviewed No longer hypoxic Blood pressure stable Still very angry and threatening Review of Systems Gastrointestinal: Abdominal Pain Objective Exam Vital Signs Vital Signs Date Time Temp Pulse Resp B/P (MAP) Pulse Ox O2 Delivery O2 Flow Rate FiO2 04/13/23 14:30 04/13/23 11:31 36.5 83 18 91 Room Air 04/13/23 08:19 Capillary Refill : Less Than 3 Seconds General Appearance: No Apparent Distress, WD/WN, Chronically ill, Obese Respiratory: Lungs Clear, Normal Breath Sounds Cardiovascular: Regular Rate, Rhythm Neurologic/Psychiatric: Alert, Oriented x3, No Motor/Sensory Deficits, Normal Mood/Affect Results/Procedures Lab Laboratory Tests 04/13/23 06:15 Patient resulted labs reviewed. Assessment/Plan Assessment and Plan Assess & Plan/Chief Complaint Assessment: Status post complicated inguinal hernia repair Postop hypotension requiring IV fluid Postop hypoxia requiring oxygen supplementation Former smoker Diabetes Hypertension as an outpatient Cognitive deficit? Urinary retention requiring Oliver catheter Plan: Supportive care Hep-Lock Monitor blood pressure Monitor oxygen ROSA WHITE DO Apr 13, 2023 06:40
[2023-04-13 08:19] VITALS: BP 125/70
[2023-04-13] MEDS: HYDROcodone/APAP 5 MG/325 MG (LORTAB) TAB PO PRN (08:37)
[2023-04-13] MEDS: TAMSULOSIN 0.4 MG (FLOMAX) CAP PO SCH (08:37)
[2023-04-13] MEDS: LACTATED RINGERS 1,000 ML IV SCH (08:38)
[2023-04-13] MEDS ORDERED: ENOXAPARIN 40 MG/0.4 ML (LOVENOX) SYR SC SCH (09:00)
--- NOTE | 2023-04-13 11:05 | Physical Therapy Daily Note ---
PT Daily Note-Current Subjective Pt supine in bed upon arrival to room, reluctant to participate in PT; eventually agrees. Pain Section J - Health Conditions 1. Rarely or not at all 2. Occasionally 3. Frequently 4. Almost constantly 8. Unable to answer Pain Effect on Sleep: 2 Pain Interference with Therapy: 1 Pain Interference w/Day-to-Day: 2 Appearance Following session, pt up in chair with call light, tray table and phone within reach. All needs met Mental Status Patient Orientation: Person, Place, Time, Situation Attachments: Oliver Catheter Transfers SCALE: Activities may be completed with or without assistive devices. 2-Hrawuambjo-xuzilxi completes the activity by him/herself with no assistance from a helper. 5-Set-up or Clean-up Assistance-helper sets up or cleans up; patient completes activity. [place] assists only prior to or following the activity. 4-Supervision or Touching Assistance-helper provides verbal cues and/or touching/steadying and/or contact guard assistance as patient completes activity. Assistance may be provided throughout the activity or intermittently. 3-Partial/Moderate Assistance-helper does LESS THAN HALF the effort. [place] lifts, holds or supports trunk or limbs, but provides less than half the effort. 2-Substantial/Maximal Assistance-helper does MORE THAN HALF the effort. [place] lifts or holds trunk or limbs and provides more than half the effort. 0-Oxetgwwqu-nwhxhj does ALL the effort. Patient does none of the effort to complete the activity. Or, the assistance of 2 or more helpers is required for the patient to complete the activity. If activity was not attempted, code reason: 7-Patient Refused. 9-Not Applicable-not attempted and the patient did not perform the activity before the current illness, exacerbation or injury. 10-Not Attempted due to Environmental Limitations-(lack of equipment, weather restraints, etc.). 88-Not Attempted due to Medical Conditions or Safety Concerns. Roll Left & Right (QC): 4 Sit to Lying (QC): 4 Lying to Sitting/Side of Bed(Q: 4 Sit to Stand (QC): 3 min A sit to stand, SBA with all bed mobility; he does require increased time to achieve sitting Weight Bearing Right Lower Extremity: Right Weight Bearing/Tolerated Left Lower Extremity: Left Weight Bearing/Tolerated Gait Training Distance: 10' Gait Assistive Device: FWW Pt has slow, steady gait pattern to chair. no LOB Assessment Current Status: Good Progress Pt limited by pain; however, able to do all mobility tasks with min A to SBA. PT Prison Goals Agricultural Equipment Sales Engineer Goals PT Prison Goals Time Frame: Apr 20, 2023 Roll Left & Right (QC): 6 Sit to Lying (QC): 6 Lying-Sitting on Side/Bed(QC): 6 Sit to Stand (QC): 6 Chair/Acm-hm-Uelfg Xfer(QC): 6 Toilet Transfer (QC): 6 Walk 10 feet (QC): 6 Walk 50ft with 2 Turns (QC): 6 Walk 150 ft (QC): 6 1 Step (curb) (QC): 4 4 Steps (QC): 4 12 Steps (QC): 4 PT Plan Problem List Problem List: Activity Tolerance, Functional Strength, Safety, Balance, Gait, Transfer, Bed Mobility, ROM Treatment/Plan Treatment Plan: Continue Plan of Care Treatment Plan: Bed Mobility, Education, Functional Activity Kiley, Functional Strength, Gait, Safety, Therapeutic Exercise, Transfers Treatment Duration: Apr 20, 2023 Frequency: 6 times per week Estimated Hrs Per Day: .25 hour per day Patient and/or Family Agrees t: Yes Time Time In: 1033 Time Out: 1045 DATE: Apr 13, 2023 Total Billed Treatment Time: 12 Total Billed Treatment 1 visit, FA (12') CORNELIA CARRIZALES PT Apr 13, 2023 11:05
--- NOTE | 2023-04-13 11:09 | Progress Note - Surgery ---
Subjective Date Seen by a Provider: Apr 13, 2023 Time Seen by a Provider: 11:09 Subjective/Events-last exam Feeling better, pain better controlled. Some bowel function. Tolerating diet. Denies nausea vomiting fever sweats chills shortness of breath or chest pain at this time. Objective Exam Vital Signs Date Time Temp Pulse Resp B/P (MAP) Pulse Ox O2 Delivery O2 Flow Rate FiO2 04/13/23 08:19 37.0 83 18 125/70 (88) 98 Room Air 04/13/23 07:27 Room Air 04/13/23 04:00 92 20 137/85 (102) 92 Room Air 04/13/23 00:00 83 18 119/70 (86) 91 Room Air 04/12/23 20:15 92 Room Air 04/12/23 19:10 Room Air 04/12/23 19:00 85 16 126/78 (94) 92 Room Air 04/12/23 16:00 37.2 82 18 138/75 (96) 97 Room Air 04/12/23 12:21 37.2 84 19 142/78 (99) 96 OxyMask 2.00 I & O 04/13/23 07:00 Intake Total 1180 ml Output Total 1450 ml Balance -270 ml Capillary Refill : Less Than 3 Seconds General Appearance: No Apparent Distress, WD/WN, Chronically ill, Obese HEENT: PERRL/EOMI, Normal ENT Inspection, Pharynx Normal Neck: Full Range of Motion, Normal Inspection, Non Tender, Supple Respiratory: Chest Non Tender, No Accessory Muscle Use, No Respiratory Distress Cardiovascular: Regular Rate, Rhythm, No JVD, Normal Peripheral Pulses Gastrointestinal: soft, tenderness (incision c/d/i no signs of infection improving) Extremity: Normal Capillary Refill, Normal Inspection, Normal Range of Motion, Non Tender, No Calf Tenderness, No Pedal Edema Neurologic/Psychiatric: Alert, Oriented x3, No Motor/Sensory Deficits, Normal Mood/Affect Skin: Normal Color, Warm/Dry Lymphatic: No Adenopathy Results Lab Laboratory Tests 04/13/23 06:15: White Blood Count 8.4, Red Blood Count 4.28L, Hemoglobin 12.1L, Hematocrit 37L, Mean Corpuscular Volume 87, Mean Corpuscular Hemoglobin 28, Mean Corpuscular Hemoglobin Concent 32, Red Cell Distribution Width 13.8, Platelet Count 137, Mean Platelet Volume 10.7, Immature Granulocyte % (Auto) 1, Neutrophils (%) (Auto) 69, Lymphocytes (%) (Auto) 17, Monocytes (%) (Auto) 11, Eosinophils (%) (Auto) 2, Basophils (%) (Auto) 1, Neutrophils # (Auto) 5.8, Lymphocytes # (Auto) 1.4, Monocytes # (Auto) 0.9, Eosinophils # (Auto) 0.1, Basophils # (Auto) 0.1, Immature Granulocyte # (Auto) 0.1, Percent Immature Platelet Fraction 4.7, Sodium Level 137, Potassium Level 3.7, Chloride Level 104, Carbon Dioxide Level 25, Anion Gap 8, Blood Urea Nitrogen 9, Creatinine 0.85, Estimat Glomerular Filtration Rate 96, BUN/Creatinine Ratio 11, Glucose Level 109H, Calcium Level 9.4, Corrected Calcium 10.0, Total Bilirubin 0.5, Aspartate Amino Transf (AST/SGOT) 18, Alanine Aminotransferase (ALT/SGPT) 33, Alkaline Phosphatase 56, Total Protein 6.1L, Albumin 3.3 04/13/23 06:20: Glucometer 112H Microbiology 04/11/23 MRSA Screen - Final, Complete MRSA not isolated Assessment/Plan Assessment/Plan Assessment/Plan s/p open left incarcerated direct/indirect inguinal hernia postoperative pain hypotension-resolved urinary retention Oliver placed and on flomax pain control ambulate and use IS Having bowel function. Tolerating diet. We will DC home any issues be seen at that time. Discussed discharge instructions. ELENA CALL DO Apr 13, 2023 11:09
[2023-04-13 11:31] VITALS: BP 152/91
[2023-04-13] MEDS ORDERED: TMSL.4C PO (16:22)
== END 2023-04-13 14:30 | disposition home or self-care (01) ==
LOC: SDC 07:39 → 4TH 15:10 → SDC 04-13 14:30
PROVIDERS: ATTEND Surgery
DX: K40.30 Unilateral inguinal hernia, with obstruction, without gangrene, not specified as recurrent (principal); G89.18 Other acute postprocedural pain; I95.9 Hypotension, unspecified; R33.9 Retention of urine, unspecified; I10 Essential (primary) hypertension; J95.89 Other postprocedural complications and disorders of respiratory system, not elsewhere classified; I95.81 Postprocedural hypotension; E11.9 Type 2 diabetes mellitus without complications; Z28.310 Unvaccinated for COVID-19; Z87.891 Personal history of nicotine dependence; Z79.4 Long term (current) use of insulin; Z79.84 Long term (current) use of oral hypoglycemic drugs; Z79.899 Other long term (current) drug therapy
CPT/HCPCS: 36415; 80053; 82947; 85025; 87081; 94664

== ENCOUNTER 2023-04-14 17:48 | Emergency (ER) | payer MEDICARE, MEDICAID ==
[~2023-04-14] VITALS: Ht 175.3 cm; Wt 104.3 kg
[~2023-04-14 17:48] MED LIST changes: +ACHD5005 PO; +DOCU-143 PO; +TMSL.4C PO
[2023-04-14 17:52] VITALS: BP 151/77
--- NOTE | 2023-04-14 18:04 | ED GU-Male ---
General Stated Complaint: CATHETER ISSUES Source: patient Exam Limitations: no limitations (KEHINDE ELLRE) History of Present Illness Date Seen by Provider: Apr 14, 2023 Time Seen by Provider: 18:01 Initial Comments Patient is a 67-year-old male who presents ED by EMS for Oliver catheter dysfunction. Patient states over the past 2 to 3 hours he has urge to urinate but nothing is coming out of his Oliver catheter. Patient had a left inguinal hernia repair performed by Dr. Call on April 11. Patient denies of any specific abdominal pain, inguinal pain or testicle pain. States the swelling appears to be improving around his testicles he reports a mild pain and discomfort to the head of the penis. States his urine does feel a little dark. Denies any fever, chills, body aches, nausea, vomiting, diarrhea. EMS stated they went to his house around 130 this morning to help drain his catheter bag. Patient had about 100 mls in his catheter bag. (KEHINDE ELLER) Allergies and Home Medications Allergies Coded Allergies: oxycodone (Verified Adverse Reaction, Unknown, 04/04/23) Patient Home Medication List Home Medication List Reviewed: Yes (KEHINDE ELLER) Amlodipine Besylate (Amlodipine Besylate) 10 Mg Tablet, 10 MG PO DAILY, (Reported) Entered as Reported by: BARRY SMITH on 01/09/23 1226 Aspirin/Acetaminophen/Caffeine (Headache Relief Caplet) 1 Each Tablet, 1 TAB PO BID, (Reported) Entered as Reported by: AMOR MCCOLLUM on 11/24/18 1021 Carvedilol (Carvedilol) 25 Mg Tablet, 25 MG PO BID, (Reported) Entered as Reported by: MOMO SON on 05/28/15 1033 Docusate Sodium (Colace) 100 Mg Capsule, 100 MG PO BID Prescribed by: ELENA CALL on 04/11/23 1200 Doxazosin Mesylate (Doxazosin Mesylate) 2 Mg Tablet, 2 MG PO DAILY, (Reported) Entered as Reported by: BARRY SMITH on 01/09/23 1226 Furosemide (Furosemide) 20 Mg Tablet, 20 MG PO DAILY, (Reported) Entered as Reported by: BARRY SMITH on 01/09/23 1226 Hydrocodone/Acetaminophen (Hydrocodone-Acetamin 5-325 mg) 5 Mg-325 Mg Tablet, 1 EACH PO Q4H PRN for PAIN-MODERATE (5-7) Prescribed by: ELENA CALL on 04/11/23 1201 Lisinopril (Lisinopril) 40 Mg Tablet, 40 MG PO DAILY, (Reported) Entered as Reported by: BARRY SMITH on 01/09/23 1226 Metformin HCl (Metformin HCl) 1,000 Mg Tablet, 1,000 MG PO BID, (Reported) Entered as Reported by: JACQUELINE BAR on 11/23/18 0909 Omeprazole (Omeprazole) 40 Mg Capsule.dr, 40 MG PO DAILY, (Reported) Entered as Reported by: BARRY SMITH on 01/09/23 1226 Sitagliptin Phosphate (Januvia) 100 Mg Tablet, 100 MG PO DAILY, (Reported) Entered as Reported by: BARRY SMITH on 01/09/23 1226 Tamsulosin HCl (Flomax) 0.4 Mg Cap, 0.4 MG PO DAILY Prescribed by: ELENA CALL on 04/13/23 1622 Review of Systems Review of Systems Constitutional: No chills, No diaphoresis, No malaise, No weakness EENTM: No hearing loss, No ear pain Respiratory: No cough, No dyspnea on exertion Cardiovascular: No chest pain Gastrointestinal: No abdominal pain, No diarrhea, No nausea, No vomiting Genitourinary: denies burning, denies discharge, denies dysuria, denies frequency; other (Decreased urine output) Musculoskeletal: No back pain, No joint pain Skin: No change in color, No change in hair/nails (KEHINDE ELLER) All Other Systemes Reviewed Negative Unless Noted: Yes (KEHINDE ELLER) Past Fxwnwun-Itebub-Obdrac Hx Immunizations Up To Date Tetanus Booster (TDap): Less than 5yrs First/Initial COVID19 Vaccinat: NO Second COVID19 Vaccination Deonte: NO Third COVID19 Vaccination Date: NO (KEHINDE ELLER) Seasonal Allergies Seasonal Allergies: Yes (KEHINDE ELLER) Past Medical History Surgery/Hospitalization HX: HTN, DM2, COPD, HERNIA, MARTITA Surgeries: Yes (cleft palate, ortho) Abdominal, Adenoidectomy, Gallbladder, Tonsillectomy Respiratory: Yes COPD Cardiac: Yes Hypertension Neurological: No Reproductive Disorders: No Sexually Transmitted Disease: No Genitourinary: Yes Renal Failure Gastrointestinal: Yes Abdominal Hernia, Gastroesophageal Reflux, Hepatitis Musculoskeletal: No Endocrine: Yes Diabetes, Non-Insulin dep HEENT: No Cancer: No Psychosocial: No Integumentary: No Blood Disorders: No Adverse Reaction/Blood Tranf: No (KEHINDE ELLER) Family Medical History Cardiovascular disease 19 FATHER Cerebral embolism G8 BROTHER Lung cancer 19 FATHER Myocardial infarction G8 BROTHER, Onset:50's - 60 G8 BROTHER, Onset:50's - 60 No Pertinent Family Hx, Heart Disease, Cancer, CAD Under 55 Years Old (KEHINDE ELLER) Physical Exam Vital Signs Vital Signs - First Documented 04/14/23 17:52 Temp 36.7 Pulse 88 Resp 19 B/P (MAP) 151/77 (101) O2 Delivery Room Air (CHARLIE SHERWOOD MD) Vital Signs Capillary Refill : (KEHINDE ELLER) Height, Weight, BMI Height: 5'9.00" Weight: 215lbs. 8.0oz. 97.638658it; 34.80 BMI Method:Stated General Appearance: WD/WN, no apparent distress HEENT: PERRL/EOMI, normal ENT inspection, TMs normal, pharynx normal Neck: non-tender, full range of motion, supple Cardiovascular: regular rate, rhythm, no edema, no gallop, no JVD Respiratory: chest non-tender, lungs clear, normal breath sounds, no respiratory distress, no accessory muscle use Gastrointestinal: normal bowel sounds, non tender, soft Genital/Rectal: other (Swollen testicles without tenderness.) Back: normal inspection, no CVA tenderness, no vertebral tenderness Extremities: normal range of motion, non-tender, normal inspection, no pedal edema Neurologic/Psychiatric: adult education manager II-XII nml as tested, no motor/sensory deficits, alert, normal mood/affect, oriented x 3 Skin: normal color, warm/dry (KEHINDE ELLER) Progress/Results/Core Measures Suspected Sepsis SIRS Temperature: Pulse: Respiratory Rate: Laboratory Tests 04/14/23 18:34: White Blood Count 8.8 Blood Pressure / Mean: Laboratory Tests 04/14/23 18:34: Creatinine 0.86, Platelet Count 168, Total Bilirubin 0.5 (KEHINDE ELLER) Results/Orders Lab Results Laboratory Tests Test 04/14/23 18:34 04/14/23 20:22 Range/Units White Blood Count 8.8 4.3-11.0 10^3/uL Red Blood Count 4.99 4.30-5.52 10^6/uL Hemoglobin 13.8 13.3-17.7 g/dL Hematocrit 43 40-54 % Mean Corpuscular Volume 85 80-99 fL Mean Corpuscular Hemoglobin 28 25-34 pg Mean Corpuscular Hemoglobin Concent 33 32-36 g/dL Red Cell Distribution Width 13.5 10.0-14.5 % Platelet Count 168 130-400 10^3/uL Mean Platelet Volume 10.9 9.0-12.2 fL Immature Granulocyte % (Auto) 1 % Neutrophils (%) (Auto) 78 H 42-75 % Lymphocytes (%) (Auto) 11 L 12-44 % Monocytes (%) (Auto) 8 0-12 % Eosinophils (%) (Auto) 2 0-10 % Basophils (%) (Auto) 1 0-10 % Neutrophils # (Auto) 6.9 1.8-7.8 10^3/uL Lymphocytes # (Auto) 0.9 L 1.0-4.0 10^3/uL Monocytes # (Auto) 0.7 0.0-1.0 10^3/uL Eosinophils # (Auto) 0.2 0.0-0.3 10^3/uL Basophils # (Auto) 0.0 0.0-0.1 10^3/uL Immature Granulocyte # (Auto) 0.1 0.0-0.1 10^3/uL Sodium Level 136 135-145 MMOL/L Potassium Level 3.9 3.6-5.0 MMOL/L Chloride Level 102 98-107 MMOL/L Carbon Dioxide Level 23 21-32 MMOL/L Anion Gap 11 5-14 MMOL/L Blood Urea Nitrogen 9 7-18 MG/DL Creatinine 0.86 0.60-1.30 MG/DL Estimat Glomerular Filtration Rate 96 BUN/Creatinine Ratio 10 Glucose Level 121 H 70-105 MG/DL Calcium Level 10.8 H 8.5-10.1 MG/DL Corrected Calcium 11.0 H 8.5-10.1 MG/DL Total Bilirubin 0.5 0.1-1.0 MG/DL Aspartate Amino Transf (AST/SGOT) 40 H 5-34 U/L Alanine Aminotransferase (ALT/SGPT) 58 H 0-55 U/L Alkaline Phosphatase 101 40-136 U/L Total Protein 7.4 6.4-8.2 GM/DL Albumin 3.8 3.2-4.5 GM/DL Urine Color YELLOW Urine Clarity CLEAR Urine pH 5.5 5-9 Urine Specific [place] <=1.005 1.016-1.022 Urine Protein 1+ H NEGATIVE Urine Glucose (UA) NEGATIVE NEGATIVE Urine Ketones NEGATIVE NEGATIVE Urine Nitrite NEGATIVE NEGATIVE Urine Bilirubin NEGATIVE NEGATIVE Urine Urobilinogen 0.2 < = 1.0 MG/DL Urine Leukocyte Esterase NEGATIVE NEGATIVE Urine RBC (Auto) 3+ H NEGATIVE Urine RBC 25-50 H /HPF Urine WBC RARE /HPF Urine Squamous Epithelial Cells NONE /HPF Urine Crystals NONE /LPF Urine Bacteria NEGATIVE /HPF Urine Casts NONE /LPF Urine Mucus SMALL H /LPF Urine Culture Indicated NO (CHARLIE SHERWOOD MD) Medications Given in ED Current Medications Medications Dose Ordered Sig/Kobi Route Start Time Stop Time Status Last Admin Dose Admin Iohexol 100 ml ONCE ONCE IV 04/14/23 18:15 04/14/23 18:16 DC 04/14/23 19:20 80 ML Sodium Chloride 100 ml ONCE ONCE IV 04/14/23 18:15 04/14/23 18:16 DC 04/14/23 19:21 80 ML (CHARLIE SHERWOOD MD) Vital Signs/I&O 04/14/23 17:52 Temp 36.7 Pulse 88 Resp 19 B/P (MAP) 151/77 (101) O2 Delivery Room Air (CHARLIE SHERWOOD MD) Vital Signs/I&O Capillary Refill : (KEHINDE ELLER) Departure Communication (PCP) StructureReviewed previous ER visits, and H&P, surgery H&P. Patient had a left inguinal repair performed by Dr. Call on April 11. Patient had a Oliver catheter placed for urinary retention. Patient had issues earlier this morning around 130 called EMS to help drain his catheter bag. Patient did produce urine today. On arrival had 100 mils of urine. Reports urine urgency over the past 2 or 3 hours but no urine output. Attempted to flush the urinary catheter but no urine return. Discussed with Dr. Call who recommended injecting 100 mils of normal saline but did not have any drainage. Attempted to adjust the catheter with no improvement. Bladder scan showed around 300 mils of urine. Surgical scar appears to be healing. Swelling of the testicles. No erythema, necrotic tissue or tenderness to palpate. He is afebrile. Due to no urine output general lab work CT abdomen pelvis was ordered. CBC, CMP was grossly unremarkable besides slightly elevated liver enzymes. Normal white blood count. CT abdomen and pelvis showed Oliver catheter inflated at the level of the prost ate. Likely result of the no urine output. There was an abnormal masslike soft tissue attenuation within the urinary bladder concerning for malignancy. Hematoma would be of differential consideration. He had a CT scan earlier in March which did not note any masslike in the bladder. No evidence of hydronephrosis or nephrolithiasis or urolithiasis. There was extensive edema and inflammatory stranding in the region of the scrotum and left inguinal region with abnormal soft tissue gas at both locations. 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 These results were discussed with Dr. Call who states that this is postop changes and not concern for linda's gangrene. I did examine the scrotum and lower abdomen and he had no tenderness on palpation. He states the swelling appears to be improving to this area. Discussed he will have swelling postsurgery. It was recommended to follow-up with Dr. Call in the office this week. If increased pain or redness to return back to ED. Replace patient's Oliver catheter had around 1200 ml of urine removed. Discussed Oliver catheter. It was recommended contact office tomorrow. (KEHINDE ELLER) Impression Primary Impression: Urinary retention Disposition: 01 HOME, SELF-CARE Condition: Stable Departure-Patient Inst. Decision time for Depature: 21:00 (KEHINDE ELLER) Referrals: ELENA CALL HOLLY R MD (PCP/Family) Primary Care Physician Patient Instructions: Oliver Catheter Add. Discharge Instructions: Need to follow-up with urology for the urinary retention. Recommend following up with [facility] urology [phone]. If any change in urination to return back to ED. Follow-up with Dr. Call on Saturday. If increased redness or swelling or pain to the left groin to return back to ED. ATTENDING PHYSICIAN NOTE: I was physically present as attending physician in the emergency department during the care of this patient, but I was not directly involved in the decision making or delivery of care for this patient. (CHARLIE SHERWOOD MD) KEHINDE ELLER Apr 14, 2023 18:04 CHARLIE SHERWOOD MD Apr 15, 2023 03:37
[2023-04-14] MEDS ORDERED: IOHEXOL 350 MG/ML 100 ML (OMNIPAQUE 350) VIAL IV ONE (18:15)
[2023-04-14] MEDS ORDERED: NS 100 ML (IVPB) BAG IV ONE (18:15)
[2023-04-14 18:53] LABS: BASOPHILS % (AUTO) 1 % (0-10); EOSINOPHILS # (AUTO) 0.2 10^3/uL (0.0-0.3); EOSINOPHILS % (AUTO) 2 % (0-10); HEMATOCRIT 43 % (40-54); HEMOGLOBIN 13.8 g/dL (13.3-17.7); LYMPHOCYTES # (AUTO) 0.9 10^3/uL (1.0-4.0); LYMPHOCYTES % (AUTO) 11 % (12-44); MEAN CORPUSCULAR HEMOGLOBIN 28 pg (25-34); MEAN CORPUSCULAR HGB CONC 33 g/dL (32-36); MEAN CORPUSCULAR VOLUME 85 fL (80-99); MEAN PLATELET VOLUME 10.9 fL (9.0-12.2); MONOCYTES # (AUTO) 0.7 10^3/uL (0.0-1.0); MONOCYTES % (AUTO) 8 % (0-12); NEUTROPHILS # (AUTO) 6.9 10^3/uL (1.8-7.8); NEUTROPHILS % (AUTO) 78 % (42-75); PLATELET COUNT 168 10^3/uL (130-400); WHITE BLOOD COUNT 8.8 10^3/uL (4.3-11.0)
[2023-04-14 19:08] LABS: ALBUMIN 3.8 GM/DL (3.2-4.5); POTASSIUM 3.9 MMOL/L (3.6-5.0)
[2023-04-14 19:09] LABS: CALCIUM 10.8 MG/DL (8.5-10.1)
[2023-04-14 19:10] LABS: TOTAL PROTEIN 7.4 GM/DL (6.4-8.2)
[2023-04-14 19:12] LABS: BILIRUBIN,TOTAL 0.5 MG/DL (0.1-1.0)
[2023-04-14 19:14] LABS: CREATININE SERUM 0.86 MG/DL (0.60-1.30)
--- NOTE | 2023-04-14 19:50 | Diagnostic Imaging Report ---
Procedure: CT abdomen and pelvis with contrast. Technique: Multiple contiguous axial images were obtained through the abdomen and pelvis after administration of intravenous contrast. Auto Exposure Controls were utilized during the CT exam to meet ALARA standards for radiation dose reduction. All CT scans use one or more of the following dose optimizing techniques: automated exposure control, MA and/or KvP adjustment based on patient size and exam type or iterative reconstruction. Date: April 14, 2023. Indication: 67-year-old male, lower abdominal pain. History of prior inguinal hernia repair on the left. Difficulty urinating. Comparison: CT abdomen and pelvis March 31, 2023. Findings: The visualized portions of the lung bases are clear. The heart is not enlarged. There is no identified pericardial effusion. There are minimal bilateral pleural effusions. The liver is unremarkable in size and contour. There is no identified focal liver lesion. The main, right and left portal veins are patent. The gallbladder is surgically absent. There is no biliary ductal dilation. Unremarkable evaluation of the pancreas. The spleen is normal in size. There is a left adrenal nodule on axial image 62 measuring 2.3 cm in size. Internal attenuation on this postcontrast exam is 44 Hounsfield units which is indeterminate. The nodule is stable since March 31, 2023 in size. There are also stable indeterminate right adrenal nodules. There are subcentimeter low-attenuation renal lesions, bilaterally, too small to characterize. The urinary collecting systems are not grossly distended. The Oliver catheter is inflated at the level of the prostate. There is soft tissue attenuation anterior and superior to the Oliver catheter which potentially could reflect blood products or neoplastic process in the gallbladder. There is a small amount of gas in the urinary bladder. There is very little contrast extension into the urinary bladder on 15 minute delayed imaging. There is extensive scrotal edema. There is also prominent stranding in the left inguinal region. There is also abnormal soft tissue gas at both locations. 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 There is a fat-containing right inguinal hernia. The intestinal tract is not distended. There is no free intraperitoneal air. There is no identified current well demarcated drainable fluid collection or abscess. There is no sizable volume free fluid in the abdomen or pelvis. There are atherosclerotic calcifications. There is no identified abnormally enlarged lymph node in the abdomen or pelvis meeting CT size criteria for adenopathy. There is no identified acute bony abnormality. Impression: 1. The Oliver catheter is inflated at the level of the prostate. Repositioning is needed. 2. Abnormal masslike soft tissue attenuation within the urinary bladder is concerning for malignancy. Hematoma would be a differential consideration. Further evaluation with cystoscopy is recommended. 3. Very little contrast passage into the urinary bladder at 15 minute delayed imaging. No identified hydronephrosis. 4. No identified ureteral stone. 5. Extensive edema and inflammatory stranding in the region of the scrotum and left inguinal region with abnormal soft tissue gas at both locations. 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 6. Stable indeterminate adrenal nodules, bilaterally. Dictated by: Dictated on workstation # [id number]
[2023-04-14 20:27] LABS: BILIRUBIN,URINE NEGATIVE (NEGATIVE); CLARITY,URINE CLEAR; COLOR,URINE YELLOW; GLUCOSE, URINE (UA) NEGATIVE (NEGATIVE); KETONES,URINE NEGATIVE (NEGATIVE); LEUKOCYTE ESTERASE ,URINE NEGATIVE (NEGATIVE); NITRITE,URINE NEGATIVE (NEGATIVE); PH,URINE 5.5 (5-9); PROTEIN,URINE 1+ (NEGATIVE)
[2023-04-14 20:41] LABS: RBC,URINE 25-50 /HPF; WBC,URINE RARE /HPF
[2023-04-14 20:42] LABS: BACTERIA,URINE NEGATIVE /HPF
== END 2023-04-14 21:15 | disposition home or self-care (01) ==
LOC: EDUNIT# 17:48 → ER 17:50
DX: T83.098A Other mechanical complication of other urinary catheter, initial encounter (principal); R33.9 Retention of urine, unspecified; R39.15 Urgency of urination; N50.89 Other specified disorders of the male genital organs; Y82.9 Unspecified medical devices associated with adverse incidents; Z28.310 Unvaccinated for COVID-19
CPT/HCPCS: 36415; 74177; 80053; 81000; 85025; 99283